=== PATIENT | female | born 1975 | race Caucasian/White ===

== ENCOUNTER 2023-01-16 10:02 | Emergency (ER) | payer BC ==
--- OUTSIDE RECORDS SUMMARY | 2023-01-16 10:12 | XMS REPORT | Continuity of Care Document ---
:1975 Author Organization [facility] t Address [address] [facility] [address] [place] [id number] Care Team Providers Name Role Phone Isaias Meza MD Primary Care Physician MELODY BORJA Attending Clinician Unavailable ISAIAS MEZA Attending Clinician Unavailable Isaias Meza MD Attending Clinician 2, [facility] Attending Clinician Unavailable NICOLASA SOLORIO Attending Clinician Unavailable Nicolasa Thomson Attending Clinician Unknown, Attending Attending Clinician Unavailable Brittani Fallon RN Attending Clinician Unavailable NGUYỄN HINES Attending Clinician Unavailable Nguyễn Hines PA-C Attending Clinician Melody Jacobs Attending Clinician Pob, [facility] Main Attending Clinician Unavailable UNKNOWN, ATTENDING Attending Clinician Unavailable Doctor Unassigned, [place] Attending Clinician Unavailable ROMAN GIL Attending Clinician Unavailable Roman Bradley Attending Clinician Provider, [facility] Attending Clinician Unavailable RAMILA GOMEZ Attending Clinician Unavailable Ramila Elena Attending Clinician Referred, Self Attending Clinician Unavailable BUDDY DUNN Attending Clinician Unavailable Emerson Siddiqui Attending Clinician EMERSON BARRAGAN Attending Clinician Unavailable Geoffrey Schaffer DO Attending Clinician Wil Wallace MD Attending Clinician WIL WALLACE Attending Clinician Unavailable Esperanza Cox Attending Clinician Saskia Phoenix Attending Clinician Unavailable Referred, Self Admitting Clinician Unavailable Physician, No Primary or Family Admitting Clinician Unavaila ble Payers Payer Name Policy Type Policy Number Effective Date Expiration Date S ource [employer] [place] - [id number] 2015 00:00:00 OUT OF STATE Problems Condition Condition Condition Status Onset Resolution Last Treating Co mments Source Name Details Category Date Date Treatment Clinician Date 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9) 30-39.9) 00:00: [place] 00 Medical Branch Need for Need for Disease Active 2020-03 Unive rs hepatitis hepatitis 2-23 ity of C C 00:00: [place] screening screening 00 Medi beth test test Branch Eczema of Eczema of Disease Active 2019-03 Uni vers both hands both hands 2-31 it y of 00:00: [place] [address] Medical Branch Other Other Disease Active Univers fatigue fatigue 9-16 ity of 00:00: [place] [address] Medical Branch Need for Need for Disease Active 2018-03 Unive rs pneumococc pneumococc 1-25 it y of al al 00:00: [place] vaccinatio vaccinatio 00 Me dical n n Branch Class 2 Class 2 Disease Active 2018-03 Univers obesity obesity 1-25 ity of due to due to 00:00: [place] excess excess 00 Medical calories calories Branch without without serious serious comorbidit comorbidit y with y with body mass body mass index index (BMI) of (BMI) of 38.0 to 38.0 to 38.9 in 38.9 in adult adult Cough Cough Disease Active 2018-03 Univers 1-25 ity of 00:00: [place] 00 Medical Branch Need for Need for Disease Active 2018-03 Unive rs pneumococc pneumococc 04-16 it y of al al 00:00: [place] vaccinatio vaccinatio 00 Me dical n n Branch Need for Need for Disease Active 2018-03 Unive rs immunizati immunizati 04-16 it y of on against on against 00:[place] influenza 00 [facility] Encounter Encounter Disease Active 2018-03 Uni vers for for 04-16 ity of contracept contracept 00:[place] corky corky 00 Medical management management Br anch , , unspecifie unspecifie d type d type Class 2 Class 2 Disease Active 2018-03 Univers obesity obesity 25 ity of due to due to 00:00: [place] excess excess 00 Medical calories calories Branch without without serious serious comorbidit comorbidit y with y with body mass body mass index index (BMI) of (BMI) of 38.0 to 38.0 to 38.9 in 38.9 in adult adult Urinary Urinary Disease Active 2018-03 Univers tract tract -25 ity of infection [place] 00:[place] without 00 Medical hematuria, hematuria, Br anch site site unspecifie unspecifie d d ADD ADD Disease Active 2018-03 Univers (attention (attention -22 it y of deficit deficit 00:00: [place] disorder) disorder) 00 [facility] without without Branch hyperactiv hyperactiv ity ity Acute Acute Disease Active 2018-03 Univers non-recurr non-recurr 04-13 it y of ent ent 00:00: [place] maxillary maxillary 00 Medi beth sinusitis sinusitis Bran ch Essential Essential Disease Active Uni vers hypertensi hypertensi 6-18 it y of on on 00:00: [place] 00 Medical Branch Chronic Chronic Disease Active Univers kidney kidney 6-18 ity of disease, disease, 00:00: [place] stage 3a stage 3a 00 Medica l Branch Anxiety Anxiety Disease Active 2018- Univers 618 ity of 00:00: [place] 00 Medical Branch Allergies, Adverse Reactions, Alerts Allergy Allergy Status Severity Reaction(s) Onset Inactive Treating Comm ents Source Name Type Date Date Clinician Nsaids Propensi Active Unknown - 2018-03 Has one Univ ers (Non-Campos ty to See comments 1- kidney, i ty of roidal adverse 00:00: can't [place] Anti-Inf reaction 00 take it Medic al lammator s Branch y Drug) NSAIDS Drug Active Unknown-Cmnt 2018-03 Univ ers (NON-CAMPOS Class 1-22 ity of ROIDAL 00:00: [place] ANTI-INF 00 Medical LAMMATOR Branch Y DRUG) Nsaids Propensi Active Unknown - 2018-03 Has one Univ ers (Non-Campos ty to See comments 1-22 kidney, i ty of roidal adverse 00:00: can't [place] Anti-Inf reaction 00 take it Medic al lammator s Branch y Drug) Social History Social Habit Start Date Stop Date Quantity Comments Source Gender identity Universit y of [facility] Sexual orientation Univer sity of [facility] History [facility] o f Alcohol Frequency [facility] edical Branch History [facility] o f Alcohol Std Drinks [facility] Branch History [facility] o f Alcohol Binge [facility] al [place] Alcohol intake 2022-11-18 2022-11-18 Current drinker Unive rsity of 00:00:00 00:00:00 of alcohol [facility] (finding) Branch Exposure to 2022-08-03 2022-08-13 Not sure University SARS-CoV-2 (event) 00:00:00 15:44:00 [facility] History of Social 2022-02-06 2022-02-06 Univers ity of function 00:00:00 00:00:00 [facility] Tobacco use and 2021-11-06 2021-11-06 Smokeless Universit y of exposure 00:00:00 00:00:00 tobacco non-user [facility] dical Branch Alcohol Comment 2017-03-30 2017-03-30 socially Universit y of 00:00:00 00:00:00 [facility] Sex [birth year] Universit y of 00:00:00 00:00:00 [facility] Smoking Status Start Date Stop Date Source Never smoked tobacco [facility] Medications Ordered Filled Start Stop Current Ordering Indication Dosage Frequency Signature Comments Components Source Medication Medication Date Date Medication? Clinician (SIG) Name Name nessazepril- 2022-0 Yes [id number] 1{tbl} Take 1 Univers hydrochlort 8-29 tablet by ity of hiazide 00:00: mouth in [place] 5-6.25 mg 00 the Medical per tablet morning. Bran h lisdexamfet 2022-0 Yes [id number] 30mg Take 1 Univers amine 8-29 capsule by ity of (VYVANSE) 00:00: mouth [place] 30 mg 00 every Medical capsule morning. Nura benazepril- 2022-0 Yes [id number] 1{tbl} Take 1 Univers hydrochlort 8-29 tablet by ity of hiazide 00:00: mouth in [place] 5-6.25 mg 00 the Medical per tablet morning. Bran h lisdexamfet 2022-0 Yes [id number] 30mg Take 1 Univers amine 8-29 capsule by ity of (VYVANSE) 00:00: mouth [place] 30 mg 00 every Medical capsule morning. Nura benazepril- 2022-0 Yes [id number] 1{tbl} Take 1 Univers hydrochlort 8-29 tablet by ity of hiazide 00:00: mouth in [place] 5-6.25 mg 00 the Medical per tablet morning. Bran h lisdexamfet 2022-0 Yes [id number] 30mg Take 1 Univers amine 8-29 capsule by ity of (VYVANSE) 00:00: mouth [place] 30 mg 00 every Medical capsule morning. Nura benazepril- 2022-0 Yes [id number] 1{tbl} Take 1 Univers hydrochlort 8-29 tablet by ity of hiazide 00:00: mouth in [place] 5-6.25 mg 00 the Medical per tablet morning. Bran h lisdexamfet 3-0 Yes [id number] 30mg Take 1 Univers amine 8-29 capsule by ity of (VYVANSE) 00:00: mouth [place] 30 mg 00 every Medical capsule morning. Nura benazepril- 2022-0 Yes [id number] 1{tbl} Take 1 Univers hydrochlort 8-29 tablet by ity of hiazide 00:00: mouth in [place] 5-6.25 mg 00 the Medical per tablet morning. Branc h lisdexamfet 2022-0 Yes [id number] 30mg Take 1 Univers amine 8-29 capsule by ity of (VYVANSE) 00:00: mouth [place] 30 mg 00 every Medical capsule morning. Branch benazepril- 2022-0 Yes [id number] 1{tbl} Take 1 Univers hydrochlort 8-29 tablet by ity of hiazide 00:00: mouth in [place] 5-6.25 mg 00 the Medical per tablet morning. Branc h lisdexamfet 2022-0 Yes [id number] 30mg Take 1 Univers amine 8-29 capsule by ity of (VYVANSE) 00:00: mouth [place] 30 mg 00 every Medical capsule morning. Branch benazepril- 2022-0 Yes [id number] 1{tbl} Take 1 Univers hydrochlort 8-29 tablet by ity of hiazide 00:00: mouth in [place] 5-6.25 mg 00 the Medical per tablet morning. Bran h lisdexamfet 2022-0 Yes [id number] 30mg Take 1 Univers amine 8-29 capsule by ity of (VYVANSE) 00:00: mouth [place] 30 mg 00 every Medical capsule morning. Branch benazepril- 2022-0 Yes [id number] 1{tbl} Take 1 Univers hydrochlort 8-29 tablet by ity of hiazide 00:00: mouth in [place] 5-6.25 mg 00 the Medical per tablet morning. Bran h lisdexamfet 2022-0 Yes [id number] 30mg Take 1 Univers amine 8-29 capsule by ity of (VYVANSE) 00:00: mouth [place] 30 mg 00 every Medical capsule morning. Branch benazepril- 2022-0 Yes [id number] 1{tbl} Take 1 Univers hydrochlort 8-29 tablet by ity of hiazide 00:00: mouth in [place] 5-6.25 mg 00 the Medical per tablet morning. Branc h lisdexamfet 2022-0 Yes [id number] 30mg Take 1 Univers amine 8-29 capsule by ity of (VYVANSE) 00:00: mouth [place] 30 mg 00 every Medical capsule morning. Nura [place] 1.7 2022-0 Yes [id number] INJECT 1.7 Univers mg/0.75 mL 8-24 MG UNDER ity o f PnIj SC 00:00: THE SKIN [place] injection 00 WEEKLY. Medical Branch WEGOVY 1.7 2022-0 Yes [id number] INJECT 1.7 Univers mg/0.75 mL 8-24 MG UNDER ity o f PnIj SC 00:00: THE SKIN [place] injection 00 WEEKLY. Medical Branch WEGOVY 1.7 2022-0 Yes [id number] INJECT 1.7 Univers mg/0.75 mL 8-24 MG UNDER ity o f PnIj SC 00:00: THE SKIN [place] injection 00 WEEKLY. Medical Branch WEGOVY 1.7 2022-0 Yes [id number] INJECT 1.7 Univers mg/0.75 mL 8-24 MG UNDER ity o f PnIj SC 00:00: THE SKIN [place] injection 00 WEEKLY. Medical Branch WEGOVY 1.7 2022-0 Yes [id number] INJECT 1.7 Univers mg/0.75 mL 8-24 MG UNDER ity o f PnIj SC 00:00: THE SKIN [place] injection 00 WEEKLY. Medical Branch WEGOVY 1.7 2022-0 Yes [id number] INJECT 1.7 Univers mg/0.75 mL 8-24 MG UNDER ity o f PnIj SC 00:00: THE SKIN [place] injection 00 WEEKLY. Medical Branch WEGOVY 1.7 2022-0 Yes [id number] INJECT 1.7 Univers mg/0.75 mL 8-24 MG UNDER ity o f PnIj SC 00:00: THE SKIN [place] injection 00 WEEKLY. Medical Branch WEGOVY 1.7 2022-0 Yes [id number] INJECT 1.7 Univers mg/0.75 mL 8-24 MG UNDER ity o f PnIj SC 00:00: THE SKIN [place] injection 00 WEEKLY. Medical Branch WEGOVY 1.7 2022-0 Yes [id number] INJECT 1.7 Univers mg/0.75 mL 8-24 MG UNDER ity o f PnIj SC 00:00: THE SKIN [place] injection 00 WEEKLY. Medical Branch WEGOVY 1.7 2022-0 Yes [id number] INJECT 1.7 Univers mg/0.75 mL 8-24 MG UNDER ity o f PnIj SC 00:00: THE SKIN [place] injection 00 WEEKLY. Medical Branch dexamethaso 2023-0 3- No [id number] 10mg U nivers ne 11-11 ity of (DECADRON) 22:15: 22:20 [place] injection 00 :00 Medical 10 mg Branch dexamethaso 2023-0 2023- No [id number] 10mg 10 mg, Univers ne 11-11 Intramuscu ity of (DECADRON) 22:15: 22:20 lar, ONCE, [place] injection 00 :00 1 dose, On Medi beth 10 mg Tue Branch 11/11/22 at 1730, Routine methylPREDN 2023-0 Yes [id number] follow Univers ISolone 11-11 package ity of (MEDROL, 00:00: directions Son as GUILLERMO,) 4 mg 00 Medical tablets Branch methylPREDN 2023-0 Yes [id number] follow Univers ISolone 11-11 package ity of (MEDROL, 00:00: directions [place] as GUILLERMO,) 4 mg 00 Medical tablets Branch methylPREDN 2023-0 Yes [id number] follow Univers ISolone 11-11 package ity of (MEDROL, 00:00: directions [place] as GUILLERMO,) 4 mg 00 Medical tablets Branch methylPREDN 2023-0 Yes [id number] follow Univers ISolone 11-11 package ity of (MEDROL, 00:00: directions [place] as GUILLERMO,) 4 mg 00 Medical tablets Branch methylPREDN 2023-0 Yes [id number] follow Univers ISolone 8- package ity of (MEDROL, 00:00: directions [place] as GUILLERMO,) 4 mg 00 Medical tablets Branch methylPREDN 2023-0 Yes [id number] follow Univers ISolone 822 package ity of (MEDROL, 00:00: directions [place] as GUILLERMO,) 4 mg 00 Medical tablets Branch methylPREDN 2023-0 Yes [id number] follow Univers ISolone 8-22 package ity of (MEDROL, 00:00: directions [place] as GUILLERMO,) 4 mg 00 Medical tablets Branch methylPREDN 2023-0 Yes [id number] follow Univers ISolone 8-22 package ity of (MEDROL, 00:00: directions [place] as GUILLERMO,) 4 mg 00 Medical tablets Branch methylPREDN 2023-0 Yes [id number] follow Univers ISolone 8-22 package ity of (MEDROL, 00:00: directions [place] as GUILLERMO,) 4 mg 00 Medical tablets Branch methylPREDN 3-0 Yes [id number] follow Univers ISolone 8-22 package ity of (MEDROL, 00:00: directions [place] as GUILLERMO,) 4 mg 00 Medical tablets Branch methylPREDN 3-0 Yes [id number] follow Univers ISolone 8-22 package ity of (MEDROL, 00:00: directions [place] as GUILLERMO,) 4 mg 00 Medical tablets Branch methylPREDN 3-0 Yes [id number] follow Univers ISolone 8-22 package ity of (MEDROL, 00:00: directions [place] as GUILLERMO,) 4 mg 00 Medical tablets Branch bromphenira 2022-0 Yes [id number] 5mL Take 5 mL Univers mine-pseudo 8-19 by mouth 3 it y of ephedrine-D 00:00: (three) [place] as M (BROMFED 00 times Medical DM) 2-30-10 daily as Bran ch mg/5 mL needed for syrup Cold symptoms. cetirizine 2022-0 Yes [id number] 10mg Take 1 Un chastity 10 mg 8-19 tablet by ity of tablet 00:00: mouth in [place] the Medical morning. Branch fluticasone 2022-0 Yes [id number] 2{spray Use 2 Univers propionate 8-19 } Sprays in ity of 50 00:00: each [place] mcg/actuati 00 nostril in Me dical on nasal the Branch spray morning. bromphenira 2022-0 Yes [id number] 5mL Take 5 mL Univers mine-pseudo 8-19 by mouth 3 it y of ephedrine-D 00:00: (three) [place] M (BROMFED 00 times Medical DM) 2-30-10 daily as Bran ch mg/5 mL needed for syrup Cold symptoms. cetirizine 2022-0 Yes [id number] 10mg Take 1 Un chastity 10 mg 8-19 tablet by ity of tablet 00:00: mouth in [place] 00 the Medical morning. Branch fluticasone 3-0 Yes [id number] 2{spray Use 2 Univers propionate 8-19 } Sprays in ity of 50 00:00: each [place] mcg/actuati 00 nostril in Me dical on nasal the Branch spray morning. bromphenira 2023-0 Yes [id number] 5mL Take 5 mL Univers mine-pseudo 8-19 by mouth 3 it y of ephedrine-D 00:00: (three) [place] M (BROMFED 00 times Medical DM) 2-30-10 daily as Bran ch mg/5 mL needed for syrup Cold symptoms. cetirizine 3-0 Yes [id number] 10mg Take 1 Un chastity 10 mg 8-19 tablet by ity of tablet 00:00: mouth in [place] 00 the Medical morning. Branch fluticasone 3-0 Yes [id number] 2{spray Use 2 Univers propionate 8-19 } Sprays in ity of 50 00:00: each [place] mcg/actuati 00 nostril in Me dical on nasal the Branch spray morning. bromphenira 3-0 Yes [id number] 5mL Take 5 mL Univers mine-pseudo 8-19 by mouth 3 it y of ephedrine-D 00:00: (three) [place] M (BROMFED 00 times Medical DM) 2-30-10 daily as Bran ch mg/5 mL needed for syrup Cold symptoms. cetirizine 2022-0 Yes [id number] 10mg Take 1 Un chastity 10 mg 8-19 tablet by ity of tablet 00:00: mouth in [place] 00 the Medical morning. Branch fluticasone 3-0 Yes [id number] 2{spray Use 2 Univers propionate 8-19 } Sprays in ity of 50 00:00: each [place] mcg/actuati 00 nostril in Me dical on nasal the Branch spray morning. bromphenira 3-0 Yes [id number] 5mL Take 5 mL Univers mine-pseudo 8-19 by mouth 3 it y of ephedrine-D 00:00: (three) [place] M (BROMFED 00 times Medical DM) 2-30-10 daily as Bran ch mg/5 mL needed for syrup Cold symptoms. cetirizine 3-0 Yes [id number] 10mg Take 1 Un chastity 10 mg 8-19 tablet by ity of tablet 00:00: mouth in [place] 00 the Medical morning. Branch fluticasone 3-0 Yes [id number] 2{spray Use 2 Univers propionate 8-19 } Sprays in ity of 50 00:00: each [place] mcg/actuati 00 nostril in Me dical on nasal the Branch spray morning. fluticasone 2022-0 Yes [id number] 2{spray Use 2 Univers propionate 8-19 } Sprays in ity of 50 00:00: each [place] mcg/actuati 00 nostril in Me dical on nasal the Branch spray morning. fluticasone 2022-0 Yes [id number] 2{spray Use 2 Univers propionate 8-19 } Sprays in ity of 50 00:00: each [place] mcg/actuati 00 nostril in Me dical on nasal the Branch spray morning. fluticasone 2022-0 Yes [id number] 2{spray Use 2 Univers propionate 8-19 } Sprays in ity of 50 00:00: each [place] mcg/actuati 00 nostril in Me dical on nasal the Branch spray morning. fluticasone 2022-0 Yes [id number] 2{spray Use 2 Univers propionate 8-19 } Sprays in ity of 50 00:00: each [place] mcg/actuati 00 nostril in Me dical on nasal the Branch spray morning. fluticasone 2022-0 Yes [id number] 2{spray Use 2 Univers propionate 8-19 } Sprays in ity of 50 00:00: each [place] mcg/actuati 00 nostril in Me dical on nasal the Branch spray morning. fluticasone 2022-0 Yes [id number] 2{spray Use 2 Univers propionate 8-19 } Sprays in ity of 50 00:00: each [place] mcg/actuati 00 nostril in Me dical on nasal the Branch spray morning. fluticasone 2022-0 Yes [id number] 2{spray Use 2 Univers propionate 8-19 } Sprays in ity of 50 00:00: each [place] mcg/actuati 00 nostril in Me dical on nasal the Branch spray morning. fluticasone 2022-0 Yes [id number] 2{spray Use 2 Univers propionate 8-19 } Sprays in ity of 50 00:00: each [place] mcg/actuati 00 nostril in Me dical on nasal the Branch spray morning. fluticasone 2022-0 Yes [id number] 2{spray Use 2 Univers propionate 8-19 } Sprays in ity of 50 00:00: each [place] mcg/actuati 00 nostril in Me dical on nasal the Branch spray morning. bromphenira 2022- No [id number] 5mL Take 5 mL Univers mine-pseudo 11-08 by mouth 3 i ty of ephedrine-D 00:00: 00:[place] (three[place] M (BROMFED 00 :00 times Medical DM) 2-30-10 daily as Bran ch mg/5 mL needed for syrup Cold symptoms. cetirizine 2022- No [id number] 10mg Take 1 U nivers 10 mg 11-08 tablet by ity of tablet 00:00: 00:00 mouth in [place] 00 :00 the Medical morning. Branch bromphenira 2022- No [id number] 5mL Take 5 mL Univers mine-pseudo 11-08 by mouth 3 i ty of ephedrine-D 00:00: 00:00 (three[place] M (BROMFED 00 :00 times Medical DM) 2-30-10 daily as Bran ch mg/5 mL needed for syrup Cold symptoms. cetirizine 2022- No [id number] 10mg Take 1 U nivers 10 mg 11-08 tablet by ity of tablet 00:00: 00:00 mouth in [place] 00 :00 the Medical morning. Branch WEGOVY 1.7 Yes [id number] INJECT 1.7 Univers mg/0.75 mL 7-23 MG UNDER ity o f PnIj SC 00:00: THE SKIN [place] injection 00 WEEKLY. Medical Branch WEGOVY 1.7 Yes [id number] INJECT 1.7 Univers mg/0.75 mL 7-23 MG UNDER ity o f PnIj SC 00:00: THE SKIN [place] injection 00 WEEKLY. Medical Branch WEGOVY 1.7 Yes [id number] INJECT 1.7 Univers mg/0.75 mL 7-23 MG UNDER ity o f PnIj SC 00:00: THE SKIN [place] injection 00 WEEKLY. Medical Branch WEGOVY 1.7 Yes [id number] INJECT 1.7 Univers mg/0.75 mL 7-23 MG UNDER ity o f PnIj SC 00:00: THE SKIN [place] injection 00 WEEKLY. Medical Branch WEGOVY 1.7 Yes [id number] INJECT 1.7 Univers mg/0.75 mL 7-23 MG UNDER ity o f PnIj SC 00:00: THE SKIN [place] injection 00 WEEKLY. Medical Branch PETE 1.7 2022-2022- No [id number] INJECT 1.7 Univers mg/0.75 mL 7-23 08-24 MG UNDER ity of PnIj SC 00:00: 00:00 THE SKIN [place] injection 00 :00 WEEKLY. Medical Branch lisdexamfet 2022-0 Yes [id number] 30mg Take 1 Univers amine 7-08 capsule by ity of (VYVANSE) 00:00: mouth [place] 30 mg 00 every Medical capsule morning. Branch lisdexamfet 2022-0 Yes [id number] 30mg Take 1 Univers amine 7-08 capsule by ity of (VYVANSE) 00:00: mouth [place] 30 mg 00 every Medical capsule morning. Branch lisdexamfet 2022-0 Yes [id number] 30mg Take 1 Univers amine 7-08 capsule by ity of (VYVANSE) 00:00: mouth [place] 30 mg 00 every Medical capsule morning. Branch lisdexamfet 2022-0 Yes [id number] 30mg Take 1 Univers amine 7-08 capsule by ity of (VYVANSE) 00:00: mouth [place] 30 mg 00 every Medical capsule morning. Branch lisdexamfet 2022-0 Yes [id number] 30mg Take 1 Univers amine 7-08 capsule by ity of (VYVANSE) 00:00: mouth [place] 30 mg 00 every Medical capsule morning. Branch lisdexamfet 2022-0 Yes [id number] 30mg Take 1 Univers amine 7-08 capsule by ity of (VYVANSE) 00:00: mouth [place] 30 mg 00 every Medical capsule morning. Branch lisdexamfet 2022-0 Yes [id number] 30mg Take 1 Univers amine 7-08 capsule by ity of (VYVANSE) 00:00: mouth [place] 30 mg 00 every Medical capsule morning. Branch lisdexamfet 2022-0 2022- No [id number] 30mg Take 1 Univers amine 7-08 08-29 capsule by ity of (VYVANSE) 00:00: 00:00 mouth [place] 30 mg 00 :00 every Medical capsule morning. Branch lisdexamfet 2022-0 2022- No [id number] 30mg Take 1 Univers amine 7-08 08-29 capsule by ity of (VYVANSE) 00:00: 00:00 mouth [place] 30 mg 00 :00 every Medical capsule morning. Branch WEGOVY 1.7 2022- Yes [id number] INJECT 1.7 Univers mg/0.75 mL 6-20 MG UNDER ity o f PnIj SC 00:00: THE SKIN [place] injection 00 WEEKLY. Medical START Branch AFTER FINISHING 0.25MG, 0.5MG, AND 1MG DOSES. WEGOVY 1.7 2022- Yes [id number] INJECT 1.7 Univers mg/0.75 mL 6-20 MG UNDER ity o f PnIj SC 00:00: THE SKIN [place] injection 00 WEEKLY. Medical START Branch AFTER FINISHING 0.25MG, 0.5MG, AND 1MG DOSES. WEGOVY 1.7 2022-2022- No [id number] INJECT 1.7 Univers mg/0.75 mL 6-20 07-23 MG UNDER ity of PnIj SC 00:00: 00:00 THE SKIN [place] injection 00 :00 WEEKLY. Medical START Branch AFTER FINISHING 0.25MG, 0.5MG, AND 1MG DOSES. semaglutide 2022-0 Yes [id number] Start: Univers , weight 5-24 0.25mg SC ity of loss, 00:00: qWeek x 4 [place] (WEGOVY) 1 00 Weeks; Medical mg/0.5 mL then 0.5mg Bran ch PnIj SC SC qWeek x injection 4 Weeks; then 1mg SC qWeek x 4 Weeks; then 1.7mg SC qWeek x 4 Weeks; then 2.4mg qWeek. semaglutide 2022-0 Yes [id number] 1.7mg inject 1.7 Univers , weight 5-24 mg under ity of loss, 00:00: the skin [place] (WEGOVY) 00 weekly. Medical 1.7 mg/0.75 for 4 Branch mL PnIj SC weeks injection lisdexamfet 2022-0 Yes [id number] 30mg Take 1 Univers amine 5-24 capsule by ity of (VYVANSE) 00:00: mouth [place] 30 mg 00 every Medical capsule morning. Branch lisinopriL 3-0 Yes [id number] 5mg Take 1 U nivers 5 mg tablet 5-24 tablet by ity of 00:00: mouth in [place] 00 the Medical morning. Branch hydroCHLORO 3-0 Yes [id number] 12.5mg Take 1 Univers thiazide 5-24 capsule by ity o f 12.5 mg 00:00: mouth in [place] capsule 00 the Medical morning. Branch semaglutide 3-0 Yes [id number] 2.4mg inject 2.4 Univers , weight 5-24 mg under ity of loss, 00:00: the [facility] ([facility] 00 weekly. Medical 2.4 mg/0.75 Start: Branch mL PnIj SC 0.25mg SC injection qWeek x 4 Weeks; then 0.5mg SC qWeek x 4 Weeks; then 1mg SC qWeek x 4 Weeks; thes1.7mg SC qWeek x 4 Weeks; then 2.4mg qWeek. semaglutide 3-0 Yes [id number] Start: Univers , weight 5-24 0.25mg SC ity of loss, 00:00: qWeek x 4 [place] (WEGOVY) 1 00 Weeks; Medical mg/0.5 mL then 0.5mg Bran ch PnIj SC SC qWeek x injection 4 Weeks; then 1mg SC qWeek x 4 Weeks; then 1.7mg SC qWeek x 4 Weeks; then 2.4mg qWeek. semaglutide 3-0 Yes [id number] 1.7mg inject 1.7 Univers , weight 5-24 mg under ity of loss, 00:00: the skin [place] ([facility]) 00 weekly. Medical 1.7 mg/0.75 for 4 Branch mL PnIj SC weeks injection lisdexamfet 3-0 Yes [id number] 30mg Take 1 [facility] amine 5-24 capsule by ity of (VYVANSE) 00:00: mouth [place] 30 mg 00 every Medical capsule morning. Branch lisinopriL 3-0 Yes [id number] 5mg Take 1 U nivers 5 mg tablet 5-24 tablet by ity of 00:00: mouth in [place] 00 the Medical morning. Branch hydroCHLORO 3-0 Yes [id number] 12.5mg Take 1 [facility] thiazide 5-24 capsule by ity o f 12.5 mg 00:00: mouth in [place] capsule 00 the Medical morning. [facility] semaglutide 2023-0 Yes [id number] 2.4mg inject 2.4 [facility] , weight 5-24 mg under ity of loss, 00:00: the skin [place] ([facility]) 00 weekly. Medical 2.4 mg/0.75 Start: Branch mL PnIj SC 0.25mg SC injection qWeek x 4 Weeks; then 0.5mg SC qWeek x 4 Weeks; then 1mg SC qWeek x 4 Weeks; thes1.7mg SC qWeek x 4 Weeks; then 2.4mg qWeek. semaglutide 3-0 Yes [id number] Start: Univers , weight 5-24 0.25mg SC ity of loss, 00:00: qWeek x 4 [place] ([facility]) 1 00 Weeks; Medical mg/0.5 mL then 0.5mg Bran ch PnIj SC SC qWeek x injection 4 Weeks; then 1mg SC qWeek x 4 Weeks; then 1.7mg SC qWeek x 4 Weeks; then 2.4mg qWeek. lisdexamfet 3-0 Yes [id number] 30mg Take 1 [facility] amine 5-24 capsule by ity of (VYVANSE) 00:00: mouth [place] 30 mg 00 every Medical capsule morning. [facility] lisinopriL 3-0 Yes [id number] 5mg Take 1 U nivers 5 mg tablet 5-24 tablet by ity of 00:00: mouth in [place] 00 the Medical morning. [facility] hydroCHLORO 3-0 Yes [id number] 12.5mg Take 1 [facility] thiazide 5-24 capsule by ity o f 12.5 mg 00:00: mouth in [place] capsule 00 the Medical morning. [facility] semaglutide 2023-0 Yes [id number] 2.4mg inject 2.4 [facility] , weight 5-24 mg under ity of loss, 00:00: the skin [place] ([facility]) 00 weekly. Medical 2.4 mg/0.75 Start: Branch mL PnIj SC 0.25mg SC injection qWeek x 4 Weeks; then 0.5mg SC qWeek x 4 Weeks; then 1mg SC qWeek x 4 Weeks; thes1.7mg SC qWeek x 4 Weeks; then 2.4mg qWeek. semaglutide 2023-0 Yes [id number] Start: Univers , weight 5-24 0.25mg SC ity of loss, 00:00: qWeek x 4 [facility]) 00 Weeks; Medical mg/0.5 mL then 0.5mg Bran ch PnIj SC SC qWeek x injection 4 Weeks; then 1mg SC qWeek x 4 Weeks; then 1.7mg SC qWeek x 4 Weeks; then 2.4mg qWeek. lisinopriL 2023-0 Yes [id number] 5mg Take 1 U nivers 5 mg tablet 5-24 tablet by ity of 00:00: mouth in [place] 00 the Medical morning. [facility] hydroCHLORO 3-0 Yes [id number] 12.5mg Take 1 [facility] thiazide 5-24 capsule by ity o f 12.5 mg 00:00: mouth in [place] capsule 00 the Medical morning. [facility] semaglutide 3-0 Yes [id number] 2.4mg inject 2.4 [facility] , weight 5-24 mg under ity of loss, 00:00: the skin [place] ([facility]) 00 weekly. Medical 2.4 mg/0.75 Start: [facility] mL PnIj SC 0.25mg SC injection qWeek x 4 Weeks; then 0.5mg SC qWeek x 4 Weeks; then 1mg SC qWeek x 4 Weeks; thes1.7mg SC qWeek x 4 Weeks; then 2.4mg qWeek. semaglutide 2023-0 Yes [id number] Start: Univers , weight 5-24 0.25mg SC ity of loss, 00:00: qWeek x 4 [facility]) 00 Weeks; Medical mg/0.5 mL then 0.5mg Bran ch PnIj SC SC qWeek x injection 4 Weeks; then 1mg SC qWeek x 4 Weeks; then 1.7mg SC qWeek x 4 Weeks; then 2.4mg qWeek. lisinopriL 2023-0 Yes [id number] 5mg Take 1 U nivers 5 mg tablet 5-24 tablet by ity of 00:00: mouth in [place] 00 the Medical morning. [facility] hydroCHLORO 2023-0 Yes [id number] 12.5mg Take 1 [facility] thiazide 5-24 capsule by ity o f 12.5 mg 00:00: mouth in [place] capsule 00 the Medical morning. Branch semaglutide 3-0 Yes [id number] 2.4mg inject 2.4 [facility] , weight 5-24 mg under ity of loss, 00:00: the skin [place] ([facility]) 00 weekly. Medical 2.4 mg/0.75 Start: Branch mL PnIj SC 0.25mg SC injection qWeek x 4 Weeks; then 0.5mg SC qWeek x 4 Weeks; then 1mg SC qWeek x 4 Weeks; thes1.7mg SC qWeek x 4 Weeks; then 2.4mg qWeek. semaglutide 3-0 Yes [id number] Start: Univers , weight 5-24 0.25mg SC ity of loss, 00:00: qWeek x 4 [facility]) 1 00 Weeks; Medical mg/0.5 mL then 0.5mg Bran ch PnIj SC SC qWeek x injection 4 Weeks; then 1mg SC qWeek x 4 Weeks; then 1.7mg SC qWeek x 4 Weeks; then 2.4mg qWeek. lisinopriL 3-0 Yes [id number] 5mg Take 1 U nivers 5 mg tablet 5-24 tablet by ity of 00:00: mouth in [place] 00 the Medical morning. [facility] hydroCHLORO 3-0 Yes [id number] 12.5mg Take 1 [facility] thiazide 5-24 capsule by ity o f 12.5 mg 00:00: mouth in [place] capsule 00 the Medical morning. Branch semaglutide 3-0 Yes [id number] 2.4mg inject 2.4 [facility] , weight 5-24 mg under ity of loss, 00:00: the skin [place] ([facility]) 00 weekly. Medical 2.4 mg/0.75 Start: Branch mL PnIj SC 0.25mg SC injection qWeek x 4 Weeks; then 0.5mg SC qWeek x 4 Weeks; then 1mg SC qWeek x 4 Weeks; thes1.7mg SC qWeek x 4 Weeks; then 2.4mg qWeek. semaglutide 2023-0 Yes [id number] Start: Univers , weight 5-24 0.25mg SC ity of loss, 00:00: qWeek x 4 [facility]) 1 00 Weeks; Medical mg/0.5 mL then 0.5mg Bran ch PnIj SC SC qWeek x injection 4 Weeks; then 1mg SC qWeek x 4 Weeks; then 1.7mg SC qWeek x 4 Weeks; then 2.4mg qWeek. lisinopriL 2023-0 Yes [id number] 5mg Take 1 U nivers 5 mg tablet 5-24 tablet by ity of 00:00: mouth in [place] 00 the Medical morning. Branch hydroCHLORO 2023-0 Yes [id number] 12.5mg Take 1 [facility] thiazide 5-24 capsule by ity o f 12.5 mg 00:00: mouth in [place] capsule 00 the Medical morning. Branch semaglutide 2023-0 Yes [id number] 2.4mg inject 2.4 [facility] , weight 5-24 mg under ity of loss, 00:00: the skin [place] ([facility]) 00 weekly. Medical 2.4 mg/0.75 Start: Branch mL PnIj SC 0.25mg SC injection qWeek x 4 Weeks; then 0.5mg SC qWeek x 4 Weeks; then 1mg SC qWeek x 4 Weeks; thes1.7mg SC qWeek x 4 Weeks; then 2.4mg qWeek. semaglutide 2023-0 Yes [id number] Start: Univers , weight 5-24 0.25mg SC ity of loss, 00:00: qWeek x 4 [facility]) 1 00 Weeks; Medical mg/0.5 mL then 0.5mg Bran ch PnIj SC SC qWeek x injection 4 Weeks; then 1mg SC qWeek x 4 Weeks; then 1.7mg SC qWeek x 4 Weeks; then 2.4mg qWeek. lisinopriL 2023-0 Yes [id number] 5mg Take 1 U nivers 5 mg tablet 5-24 tablet by ity of 00:00: mouth in [place] 00 the Medical morning. Branch hydroCHLORO 2023-0 Yes [id number] 12.5mg Take 1 [facility] thiazide 5-24 capsule by ity o f 12.5 mg 00:00: mouth in [place] capsule 00 the Medical morning. [facility] semaglutide 2023-0 Yes [id number] 2.4mg inject 2.4 [facility] , weight 5-24 mg under ity of loss, 00:00: the [facility]) 00 weekly. Medical 2.4 mg/0.75 Start: Branch mL PnIj SC 0.25mg SC injection qWeek x 4 Weeks; then 0.5mg SC qWeek x 4 Weeks; then 1mg SC qWeek x 4 Weeks; thes1.7mg SC qWeek x 4 Weeks; then 2.4mg qWeek. semaglutide 2023-0 Yes [id number] Start: Univers , weight 5-24 0.25mg SC ity of loss, 00:00: qWeek x 4 [facility] 00 Weeks; Medical mg/0.5 mL then 0.5mg Bran ch PnIj SC SC qWeek x injection 4 Weeks; then 1mg SC qWeek x 4 Weeks; then 1.7mg SC qWeek x 4 Weeks; then 2.4mg qWeek. lisinopriL 3-0 Yes [id number] 5mg Take 1 U nivers 5 mg tablet 5-24 tablet by ity of 00:00: mouth in [place] 00 the Medical morning. [facility] hydroCHLORO 3-0 Yes [id number] 12.5mg Take 1 [facility] thiazide 5-24 capsule by ity o f 12.5 mg 00:00: mouth in [place] capsule 00 the Medical morning. [facility] semaglutide 3-0 Yes [id number] 2.4mg inject 2.4 [facility] , weight 5-24 mg under ity of loss, 00:00: the skin [place] ([facility]) 00 weekly. Medical 2.4 mg/0.75 Start: Branch mL PnIj SC 0.25mg SC injection qWeek x 4 Weeks; then 0.5mg SC qWeek x 4 Weeks; then 1mg SC qWeek x 4 Weeks; thes1.7mg SC qWeek x 4 Weeks; then 2.4mg qWeek. semaglutide 2023-0 Yes [id number] Start: Univers , weight 5-24 0.25mg SC ity of loss, 00:00: qWeek x 4 [place] ([facility]) 1 00 Weeks; Medical mg/0.5 mL then 0.5mg Bran ch PnIj SC SC qWeek x injection 4 Weeks; then 1mg SC qWeek x 4 Weeks; then 1.7mg SC qWeek x 4 Weeks; then 2.4mg qWeek. lisinopriL 3-0 Yes [id number] 5mg Take 1 U nivers 5 mg tablet 5-24 tablet by ity of 00:00: mouth in [place] 00 the Medical morning. Branch hydroCHLORO 3-0 Yes [id number] 12.5mg Take 1 [facility] thiazide 5-24 capsule by ity o f 12.5 mg 00:00: mouth in [place] capsule 00 the Medical morning. Branch semaglutide 3-0 Yes [id number] 2.4mg inject 2.4 [facility] , weight 5-24 mg under ity of loss, 00:00: the [facility]) 00 weekly. Medical 2.4 mg/0.75 Start: Branch mL PnIj SC 0.25mg SC injection qWeek x 4 Weeks; then 0.5mg SC qWeek x 4 Weeks; then 1mg SC qWeek x 4 Weeks; thes1.7mg SC qWeek x 4 Weeks; then 2.4mg qWeek. semaglutide 3-0 Yes [id number] 2.4mg inject 2.4 [facility] , weight 5-24 mg under ity of loss, 00:00: the [facility]) weekly. Medical 2.4 mg/0.75 Start: Branch mL PnIj SC 0.25mg SC injection qWeek x 4 Weeks; then 0.5mg SC qWeek x 4 Weeks; then 1mg SC qWeek x 4 Weeks; thes1.7mg SC qWeek x 4 Weeks; then 2.4mg qWeek. semaglutide 2023-0 Yes [id number] 2.4mg inject 2.4 Univers , weight 5-24 mg under ity of loss, 00:00: the [facility] ([facility]) weekly. Medical 2.4 mg/0.75 Start: Branch mL PnIj SC 0.25mg SC injection qWeek x 4 Weeks; then 0.5mg SC qWeek x 4 Weeks; then 1mg SC qWeek x 4 Weeks; thes1.7mg SC qWeek x 4 Weeks; then 2.4mg qWeek. semaglutide 2023-0 Yes [id number] 2.4mg inject 2.4 Univers , weight 5-24 mg under ity of loss, 00:00: the [facility]) 00 weekly. Medical 2.4 mg/0.75 Start: Branch mL PnIj SC 0.25mg SC injection qWeek x 4 Weeks; then 0.5mg SC qWeek x 4 Weeks; then 1mg SC qWeek x 4 Weeks; thes1.7mg SC qWeek x 4 Weeks; then 2.4mg qWeek. semaglutide 2023-0 Yes [id number] 2.4mg inject 2.4 Univers , weight 5-24 mg under ity of loss, 00:00: the [facility] ([facility] weekly. Medical 2.4 mg/0.75 Start: Branch mL PnIj SC 0.25mg SC injection qWeek x 4 Weeks; then 0.5mg SC qWeek x 4 Weeks; then 1mg SC qWeek x 4 Weeks; thes1.7mg SC qWeek x 4 Weeks; then 2.4mg qWeek. semaglutide 2023-0 Yes [id number] 2.4mg inject 2.4 Univers , weight 5-24 mg under ity of loss, 00:00: the [facility] ([facility]) weekly. Medical 2.4 mg/0.75 Start: Branch mL PnIj SC 0.25mg SC injection qWeek x 4 Weeks; then 0.5mg SC qWeek x 4 Weeks; then 1mg SC qWeek x 4 Weeks; thes1.7mg SC qWeek x 4 Weeks; then 2.4mg qWeek. semaglutide 2023-0 Yes [id number] 2.4mg inject 2.4 Univers , weight 5-24 mg under ity of loss, 00:00: the [facility] ([facility]) weekly. Medical 2.4 mg/0.75 Start: Branch mL PnIj SC 0.25mg SC injection qWeek x 4 Weeks; then 0.5mg SC qWeek x 4 Weeks; then 1mg SC qWeek x 4 Weeks; thes1.7mg SC qWeek x 4 Weeks; then 2.4mg qWeek. semaglutide 3-0 Yes [id number] 2.4mg inject 2.4 Univers , weight 5-24 mg under ity of loss, 00:00: the skin [facility]) 00 weekly. Medical 2.4 mg/0.75 Start: Branch mL PnIj SC 0.25mg SC injection qWeek x 4 Weeks; then 0.5mg SC qWeek x 4 Weeks; then 1mg SC qWeek x 4 Weeks; thes1.7mg SC qWeek x 4 Weeks; then 2.4mg qWeek. semaglutide 2022-0 Yes [id number] 2.4mg inject 2.4 Univers , weight 5-24 mg under ity of loss, 00:00: the skin [facility]) 00 weekly. Medical 2.4 mg/0.75 Start: Branch mL PnIj SC 0.25mg SC injection qWeek x 4 Weeks; then 0.5mg SC qWeek x 4 Weeks; then 1mg SC qWeek x 4 Weeks; thes1.7mg SC qWeek x 4 Weeks; then 2.4mg qWeek. semaglutide 2022-0 Yes [id number] 2.4mg inject 2.4 Univers , weight 5-24 mg under ity of loss, 00:00: the skin [place] ([facility]) 00 weekly. Medical 2.4 mg/0.75 Start: Branch mL PnIj SC 0.25mg SC injection qWeek x 4 Weeks; then 0.5mg SC qWeek x 4 Weeks; then 1mg SC qWeek x 4 Weeks; thes1.7mg SC qWeek x 4 Weeks; then 2.4mg qWeek. semaglutide 2022-0 2022- No [id number] Start: Univers , weight 5-24 08-29 0.25mg SC ity o f loss, 00:00: 00:00 qWeek x 4 [place] ([facility]) 1 00 :00 Weeks; Medical mg/0.5 mL then 0.5mg Bran ch PnIj SC SC qWeek x injection 4 Weeks; then 1mg SC qWeek x 4 Weeks; then 1.7mg SC qWeek x 4 Weeks; then 2.4mg qWeek. lisinopriL 2022-0 2022- No [id number] 5mg Take 1 [facility] 5 mg tablet 08-13- tablet by it y of 00:00: 00:00 mouth in [place] 00 :00 the Medical morning. [facility] hydroCHLORO 2022-0 2022- No [id number] 12.5mg Take 1 [facility] thiazide 08-13- capsule by ity of 12.5 mg 00:00: 00:00 mouth in [place] capsule 00 :00 the Medical morning. [facility] semaglutide 2022- No [id number] Start: Univers , weight -13 11-29 0.25mg SC ity o f loss, 00:00: 00:00 qWeek x 4 [place] ([facility]) 1 00 :00 Weeks; Medical mg/0.5 mL then 0.5mg Bran ch PnIj SC SC qWeek x injection 4 Weeks; then 1mg SC qWeek x 4 Weeks; then 1.7mg SC qWeek x 4 Weeks; then 2.4mg qWeek. lisinopriL 2022-2022- No [id number] 5mg Take 1 [facility] 5 mg tablet 08-13- tablet by it y of 00:00: 00:00 mouth in [place] 00 :00 the Medical morning. [facility] hydroCHLORO 2022-2022- No [id number] 12.5mg Take 1 [facility] thiazide 08-13 capsule by ity of 12.5 mg 00:00: 00:00 mouth in [place] capsule 00 :00 the Medical morning. [facility] lisdexamfet 2022-2022- No [id number] 30mg Take 1 [facility] amine -24 07-06 capsule by ity of (VYVANSE) 00:00: 00:00 mouth [place] 30 mg 00 :00 every Medical capsule morning. [facility] semaglutide 2022-0 2022- No [id number] 1.7mg inject 1.7 Univers , weight 5-24 06-20 mg under ity of loss, 00:00: 00:00 the skin [place] ([facility]) 00 :00 weekly. Medical 1.7 mg/0.75 for 4 Branch mL PnIj SC weeks injection semaglutide 2022-0 Yes [id number] 1.7mg inject 1.7 Univers , weight 3-21 mg under ity of loss, 00:00: the skin [place] ([facility]) 00 weekly. Medical 1.7 mg/0.75 for 4 Branch mL PnIj SC weeks injection lisdexamfet 3-0 Yes [id number] 30mg Take 1 [facility] amine 3-21 capsule by ity of (VYVANSE) 00:00: mouth [place] 30 mg 00 every Medical capsule morning. Branch lisdexamfet 3-0 Yes [id number] 30mg Take 1 [facility] amine 3-21 capsule by ity of (VYVANSE) 00:00: mouth [place] 30 mg 00 every Medical capsule morning. Branch semaglutide 3-0 Yes [id number] 1.7mg inject 1.7 Univers , weight 3-21 mg under ity of loss, 00:00: the skin [place] ([facility]) 00 weekly. Medical 1.7 mg/0.75 for 4 Branch mL PnIj SC weeks injection lisdexamfet 3-0 Yes [id number] 30mg Take 1 [facility] amine 3-21 capsule by ity of (VYVANSE) 00:00: mouth [place] 30 mg 00 every Medical capsule morning. Branch semaglutide 3-0 Yes [id number] 1.7mg inject 1.7 Univers , weight 3-21 mg under ity of loss, 00:00: the skin [place] ([facility]) 00 weekly. Medical 1.7 mg/0.75 for 4 Branch mL PnIj SC weeks injection lisdexamfet 3-0 3- No [id number] 30mg Take 1 [facility] amine 3-21 05-24 capsule by ity of (VYVANSE) 00:00: 00:00 mouth [place] 30 mg 00 :00 every Medical capsule morning. Branch semaglutide 3-0 3- No [id number] 1.7mg inject 1.7 Univers , weight 3-21 05-24 mg under ity of loss, 00:00: 00:00 the skin [place] ([facility]) 00 :00 weekly. Medical 1.7 mg/0.75 for 4 Branch mL PnIj SC weeks injection lisdexamfet 3-0 2023- No [id number] 30mg Take 1 [facility] amine 3-21 05-24 capsule by ity of (VYVANSE) 00:00: 00:00 mouth [place] 30 mg 00 :00 every Medical capsule morning. Branch semaglutide 0 2022- No [id number] 1.7mg inject 1.7 Univers , weight 3-21 05-24 mg under ity of loss, 00:00: 00:00 the skin [place] ([facility]) 00 :00 weekly. Medical 1.7 mg/0.75 for 4 Branch mL PnIj SC weeks injection semaglutide 2022-0 Yes [id number] Start: Univers , weight 3-20 0.25mg SC ity of loss, 00:00: qWeek x 4 [place] ([facility]) 1 00 Weeks; Medical mg/0.5 mL then 0.5mg Bran ch PnIj SC SC qWeek x injection 4 Weeks; then 1mg SC qWeek x 4 Weeks; then 1.7mg SC qWeek x 4 Weeks; then 2.4mg qWeek. semaglutide 2022-0 Yes [id number] Start: Univers , weight 3-20 0.25mg SC ity of loss, 00:00: qWeek x 4 [place] ([facility]) 1 00 Weeks; Medical mg/0.5 mL then 0.5mg Bran ch PnIj SC SC qWeek x injection 4 Weeks; then 1mg SC qWeek x 4 Weeks; then 1.7mg SC qWeek x 4 Weeks; then 2.4mg qWeek. semaglutide 2022-0 Yes [id number] Start: Univers , weight 3-20 0.25mg SC ity of loss, 00:00: qWeek x 4 [place] ([facility]) 1 00 Weeks; Medical mg/0.5 mL then 0.5mg Bran ch PnIj SC SC qWeek x injection 4 Weeks; then 1mg SC qWeek x 4 Weeks; then 1.7mg SC qWeek x 4 Weeks; then 2.4mg qWeek. semaglutide 2023-0 Yes [id number] Start: Univers , weight 3-20 0.25mg SC ity of loss, 00:00: qWeek x 4 [place] ([facility]) 1 00 Weeks; Medical mg/0.5 mL then 0.5mg Bran ch PnIj SC SC qWeek x injection 4 Weeks; then 1mg SC qWeek x 4 Weeks; then 1.7mg SC qWeek x 4 Weeks; then 2.4mg qWeek. semaglutide Yes [id number] Start: Univers , weight 3-20 0.25mg SC ity of loss, 00:00: qWeek x 4 [facility] 00 Weeks; Medical mg/0.5 mL then 0.5mg Bran ch PnIj SC SC qWeek x injection 4 Weeks; then 1mg SC qWeek x 4 Weeks; then 1.7mg SC qWeek x 4 Weeks; then 2.4mg qWeek. semaglutide 2022- No [id number] Start: Univers , weight 3-20 05-24 0.25mg SC ity o f loss, 00:00: 00:00 qWeek x 4 [place] [id number] 00 :00 Weeks; Medical mg/0.5 mL then 0.5mg Bran ch PnIj SC SC qWeek x injection 4 Weeks; then 1mg SC qWeek x 4 Weeks; then 1.7mg SC qWeek x 4 Weeks; then 2.4mg qWeek. semaglutide 2022- No [id number] Start: Univers , weight 3-20 05-24 0.25mg SC ity o f loss, 00:00: 00:00 qWeek x 4 [place] [id number] 00 :00 Weeks; Medical mg/0.5 mL then 0.5mg Bran ch PnIj SC SC qWeek x injection 4 Weeks; then 1mg SC qWeek x 4 Weeks; then 1.7mg SC qWeek x 4 Weeks; then 2.4mg qWeek. predniSONE 2022-2022- No [id number] 20mg Take 1 Univers 20 mg 04-29-13 tablet by ity of tablet 00:00: 05:59 mouth in [place] 00 :00 the Medical morning Branch for 5 days. lisdexamfet Yes [id number] 30mg Take 1 [facility] amine 2-02 capsule by ity of (VYVANSE) 00:00: mouth [place] 30 mg 00 every Medical capsule morning. Branch lisdexamfet 2023-0 Yes [id number] 30mg Take 1 [facility] amine 2-02 capsule by ity of (VYVANSE) 00:00: mouth [place] 30 mg 00 every Medical capsule morning. Branch lisdexamfet 2022-0 Yes [id number] 30mg Take 1 [facility] amine 2-02 capsule by ity of (VYVANSE) 00:00: mouth [place] 30 mg 00 every Medical capsule morning. Branch lisdexamfet 2022-0 Yes [id number] 30mg Take 1 [facility] amine 2-02 capsule by ity of ([facility]YVANSE) 00:00: mouth [place] 30 mg 00 every Medical capsule morning. Branch lisdexamfet 2022-0 Yes [id number] 30mg Take 1 [facility] amine 2-02 capsule by ity of (VYVANSE) 00:00: mouth [place] 30 mg 00 every Medical capsule morning. Branch lisdexamfet 2022-0 Yes [id number] 30mg Take 1 [facility] amine 2-02 capsule by ity of ([facility]YVANSE) 00:00: mouth [place] 30 mg 00 every Medical capsule morning. Branch lisdexamfet 2022-0 Yes [id number] 30mg Take 1 [facility] amine 2-02 capsule by ity of (VYVANSE) 00:00: mouth [place] 30 mg 00 every Medical capsule morning. Branch lisdexamfet 2022-0 Yes [id number] 30mg Take 1 [facility] amine 2-02 capsule by ity of (VYVANSE) 00:00: mouth [place] 30 mg 00 every Medical capsule morning. Branch lisdexamfet 2022-0 Yes [id number] 30mg Take 1 [facility] amine 2-02 capsule by ity of ([facility]YVANSE) 00:00: mouth [place] 30 mg 00 every Medical capsule morning. Branch lisdexamfet 2022-0 Yes [id number] 30mg Take 1 [facility] amine 2-02 capsule by ity of (VYVANSE) 00:00: mouth [place] 30 mg 00 every Medical capsule morning. Branch lisdexamfet 2022-0 3- No [id number] 30mg Take 1 [facility] amine 2-02 03-19 capsule by ity of (VYVANSE) 00:00: 00:00 mouth [place] 30 mg 00 :00 every Medical capsule morning. Branch norgestrel- 2021-1 Yes [id number] 1{tbl} Take 1 [facility] ethinyl 2-20 tablet by ity of estradioL 00:00: mouth in [facility] ([facility] 00 the Medical EL) 0.3-30 morning. Branc h mg-mcg per tablet lisdexamfet 2021- Yes [id number] 30mg Take 1 [facility] amine 2-20 capsule by ity of (VYVANSE) 00:00: mouth [place] 30 mg 00 every Medical capsule morning. Branch lisinopriL 2021- Yes [id number] 5mg Take 1 U nivers 5 mg tablet 2-20 tablet by ity of 00:00: mouth in [place] the Medical morning. Branch norgestrel- 2021-03 Yes [id number] 1{tbl} Take 1 [facility] ethinyl 2-20 tablet by ity of estradioL 00:00: mouth in [facility] ([facility] 00 the Medical ) 0.3-30 morning. Branc h mg-mcg per tablet lisdexamfet 2021-03 Yes [id number] 30mg Take 1 [facility] amine 2-20 capsule by ity of (VYVANSE) 00:00: mouth [place] 30 mg 00 every Medical capsule morning. Branch lisinopriL 2021-03 Yes [id number] 5mg Take 1 U nivers 5 mg tablet 2-20 tablet by ity of 00:00: mouth in [place] the Medical morning. Branch norgestrel- 2021- Yes [id number] 1{tbl} Take 1 [facility] ethinyl 2-20 tablet by ity of estradioL 00:00: mouth in [facility] ([facility] 00 the Medical EL) 0.3-30 morning. Branc h mg-mcg per tablet lisdexamfet 2021- Yes [id number] 30mg Take 1 [facility] amine 2-20 capsule by ity of (VYVANSE) 00:00: mouth [place] 30 mg 00 every Medical capsule morning. Branch lisinopriL 2021- Yes [id number] 5mg Take 1 U nivers 5 mg tablet 2-20 tablet by ity of 00:00: mouth in [place] the Medical morning. Branch norgestrel- 2021- Yes [id number] 1{tbl} Take 1 [facility] ethinyl 2-20 tablet by ity of estradioL 00:00: [place] ([facility] 00 the Medical ) 0.3-30 morning. Branc h mg-mcg per tablet lisinopriL 2021-03 Yes [id number] 5mg Take 1 U nivers 5 mg tablet 2-20 tablet by ity of 00:00: mouth in [place] 00 the Medical morning. Branch norgestrel- 2021- Yes [id number] 1{tbl} Take 1 [facility] ethinyl 2-20 tablet by ity of estradioL 00:00: mouth in [facility] ([facility] 00 the Medical ) 0.3-30 morning. Branc h mg-mcg per tablet lisinopriL 2021-03 Yes [id number] 5mg Take 1 U nivers 5 mg tablet 2-20 tablet by ity of 00:00: mouth in [place] the Medical morning. Branch norgestrel- 2021-03 Yes [id number] 1{tbl} Take 1 [facility] ethinyl 2-20 tablet by ity of estradioL 00:00: mouth in [facility] ([facility] 00 the Medical ) 0.3-30 morning. Branc h mg-mcg per tablet lisinopriL 2021-03 Yes [id number] 5mg Take 1 U nivers 5 mg tablet 2-20 tablet by ity of 00:00: mouth in [place] the morning. Branch norgestrel- 2021- Yes [id number] 1{tbl} Take 1 [facility] ethinyl 2-20 tablet by ity of estradioL 00:00: mouth in [facility] ([facility] 00 the Medical ) 0.3-30 morning. Branc h mg-mcg per tablet lisinopriL 2021-03 Yes [id number] 5mg Take 1 U nivers 5 mg tablet 2-20 tablet by ity of 00:00: mouth in [place] the Medical morning. Branch norgestrel- 2021- Yes [id number] 1{tbl} Take 1 [facility] ethinyl 2-20 tablet by ity of estradioL 00:00: mouth in [facility] ([facility] 00 the Medical ) 0.3-30 morning. Branc h mg-mcg per tablet lisinopriL 2021-03 Yes [id number] 5mg Take 1 U nivers 5 mg tablet 2-20 tablet by ity of 00:00: mouth in [place] the Medical morning. Branch norgestrel- 2021-03 Yes [id number] 1{tbl} Take 1 [facility] ethinyl 2-20 tablet by ity of estradioL 00:00: mouth in [facility] ([facility] 00 the Medical ) 0.3-30 morning. Branc h mg-mcg per tablet lisinopriL 2021-03 Yes [id number] 5mg Take 1 U nivers 5 mg tablet 2-20 tablet by ity of 00:00: mouth in [place] the morning. Branch norgestrel- 2021-03 Yes [id number] 1{tbl} Take 1 [facility] ethinyl 2-20 tablet by ity of estradioL 00:00: mouth in [facility] ([facility]STR 00 the Medical ) 0.3-30 morning. Branc h mg-mcg per tablet lisinopriL 2021-03 Yes [id number] 5mg Take 1 U nivers 5 mg tablet 2-20 tablet by ity of 00:00: mouth in [place] the morning. Branch norgestrel- 2021-03 Yes [id number] 1{tbl} Take 1 [facility] ethinyl 2-20 tablet by ity of estradioL 00:00: mouth in [facility] (LOW-OGESTR 00 the Medical ) 0.3-30 morning. Branc h mg-mcg per tablet lisinopriL 2021-03 Yes [id number] 5mg Take 1 U nivers 5 mg tablet 2-20 tablet by ity of 00:00: mouth in [place] the morning. Branch norgestrel- 2021- Yes [id number] 1{tbl} Take 1 [facility] ethinyl 2-20 tablet by ity of estradioL 00:00: mouth in [facility] (LOW-OGESTR 00 the Medical ) 0.3-30 morning. Branc h mg-mcg per tablet lisinopriL 2021-03 Yes [id number] 5mg Take 1 U nivers 5 mg tablet 2-20 tablet by ity of 00:00: mouth in [place] the Medical morning. Branch norgestrel- 2021-03 Yes [id number] 1{tbl} Take 1 [facility] ethinyl 2-20 tablet by ity of estradioL 00:00: mouth in [facility] (LOW-OGESTR 00 the Medical EL) 0.3-30 morning. Branc h mg-mcg per tablet lisinopriL 2021-03 Yes [id number] 5mg Take 1 U nivers 5 mg tablet 2-20 tablet by ity of 00:00: mouth in [place] 00 the Medical morning. Branch norgestrel- 2021-03 Yes [id number] 1{tbl} Take 1 [facility] ethinyl 2-20 tablet by ity of estradioL 00:00: [place] (LOW-OGESTR 00 the Medical EL) 0.3-30 morning. Branc h mg-mcg per tablet lisinopriL 2021-03 Yes [id number] 5mg Take 1 U nivers 5 mg tablet 2-20 tablet by ity of 00:00: mouth in [place] the Medical morning. Branch norgestrel- 2021-03 Yes [id number] 1{tbl} Take 1 [facility] ethinyl 2-20 tablet by ity of estradioL 00:00: mouth in [facility] (LOW-OGESTR 00 the Medical ) 0.3-30 morning. Branc h mg-mcg per tablet lisinopriL 2021-03 Yes [id number] 5mg Take 1 U nivers 5 mg tablet 2-20 tablet by ity of 00:00: mouth in [place] the Medical morning. Branch norgestrel- 2021-03 Yes [id number] 1{tbl} Take 1 [facility] ethinyl 2-20 tablet by ity of estradioL 00:00: mouth in [facility] s (LOW-OGESTR 00 the Medical ) 0.3-30 morning. Branc h mg-mcg per tablet lisinopriL 2021-03 Yes [id number] 5mg Take 1 U nivers 5 mg tablet 2-20 tablet by ity of 00:00: mouth in [place] the Medical morning. Branch norgestrel- 2021-03 Yes [id number] 1{tbl} Take 1 [facility] ethinyl 2-20 tablet by ity of estradioL 00:00: [place] (LOW-OGESTR 00 the Medical EL) 0.3-30 morning. Branc h mg-mcg per tablet lisinopriL 2021-03 Yes [id number] 5mg Take 1 U nivers 5 mg tablet 2-20 tablet by ity of 00:00: mouth in [place] 00 the Medical morning. Branch norgestrel- 2021- Yes [id number] 1{tbl} Take 1 [facility] ethinyl 2-20 tablet by ity of estradioL 00:00: [place] (LOW-OGESTR 00 the Medical EL) 0.3-30 morning. Branc h mg-mcg per tablet norgestrel- 2021- Yes [id number] 1{tbl} Take 1 [facility] ethinyl 2-20 tablet by ity of estradioL 00:00: [place] (LOW-OGESTR 00 the Medical EL) 0.3-30 morning. Branc h mg-mcg per tablet norgestrel- 2021- Yes [id number] 1{tbl} Take 1 [facility] ethinyl 2-20 tablet by ity of estradioL 00:00: [place] (LOW-OGESTR 00 the Medical EL) 0.3-30 morning. Branc h mg-mcg per tablet norgestrel- 2021-03 Yes [id number] 1{tbl} Take 1 [facility] ethinyl 2-20 tablet by ity of estradioL 00:00: mouth [place] (LOW-OGESTR 00 the Medical EL) 0.3-30 morning. Branc h mg-mcg per tablet norgestrel- 2021- Yes [id number] 1{tbl} Take 1 [facility] ethinyl 2-20 tablet by ity of estradioL 00:00: [place] (LOW-OGESTR 00 the Medical EL) 0.3-30 morning. Branc h mg-mcg per tablet norgestrel- 2021- Yes [id number] 1{tbl} Take 1 [facility] ethinyl 2-20 tablet by ity of estradioL 00:00: mouth [place] (LOW-OGESTR 00 the Medical EL) 0.3-30 morning. Branc h mg-mcg per tablet norgestrel- 2021- Yes [id number] 1{tbl} Take 1 [facility] ethinyl 2-20 tablet by ity of estradioL 00:00: [place] (LOW-OGESTR 00 the Medical EL) 0.3-30 morning. Branc h mg-mcg per tablet norgestrel- 2021- Yes [id number] 1{tbl} Take 1 [facility] ethinyl 2-20 tablet by ity of estradioL 00:00: [place] (LOW-OGESTR 00 the Medical EL) 0.3-30 morning. Branc h mg-mcg per tablet norgestrel- 2021- Yes [id number] 1{tbl} Take 1 [facility] ethinyl 2-20 tablet by ity of estradioL 00:00: [place] (LOW-OGESTR 00 the Medical EL) 0.3-30 morning. Branc h mg-mcg per tablet norgestrel- 2021- Yes [id number] 1{tbl} Take 1 [facility] ethinyl 2-20 tablet by ity of estradioL 00:00: [place] (LOW-OGESTR 00 the Medical EL) 0.3-30 morning. Branc h mg-mcg per tablet norgestrel- 2021- Yes [id number] 1{tbl} Take 1 [facility] ethinyl 2-20 tablet by ity of estradioL 00:00: mouth [place] (LOW-OGESTR 00 the Medical EL) 0.3-30 morning. Branc h mg-mcg per tablet norgestrel- 2021- Yes [id number] 1{tbl} Take 1 [facility] ethinyl 2-20 tablet by ity of estradioL 00:00: mouth [place] (LOW-OGESTR 00 the Medical EL) 0.3-30 morning. Branc h mg-mcg per tablet norgestrel- 2021- Yes [id number] 1{tbl} Take 1 [facility] ethinyl 2-20 tablet by ity of estradioL 00:00: [place] (LOW-OGESTR 00 the Medical EL) 0.3-30 morning. Branc h mg-mcg per tablet norgestrel- 2021- Yes [id number] 1{tbl} Take 1 [facility] ethinyl 2-20 tablet by ity of estradioL 00:00: mouth [place] (LOW-OGESTR 00 the Medical EL) 0.3-30 morning. Branc h mg-mcg per tablet norgestrel- 2021- Yes [id number] 1{tbl} Take 1 [facility] ethinyl 2-20 tablet by ity of estradioL 00:00: [place] (LOW-OGESTR 00 the Medical EL) 0.3-30 morning. Branc h mg-mcg per tablet norgestrel- 2021-03 Yes [id number] 1{tbl} Take 1 [facility] ethinyl 2-20 tablet by ity of estradioL 00:00: [facility] (LOW-OGESTR 00 the Medical ) 0.3-30 morning. Branc h mg-mcg per tablet norgestrel- 2021-03 Yes [id number] 1{tbl} Take 1 [facility] ethinyl 2-20 tablet by ity of estradioL 00:00: mouth in [facility] (LOW-OGESTR 00 the Medical ) 0.3-30 morning. Branc h mg-mcg per tablet norgestrel- 2021-03 Yes [id number] 1{tbl} Take 1 [facility] ethinyl 2-20 tablet by ity of estradioL 00:00: mouth in [facility] (LOW-OGESTR 00 the Medical ) 0.3-30 morning. Branc h mg-mcg per tablet norgestrel- 2021-03 Yes [id number] 1{tbl} Take 1 [facility] ethinyl 2-20 tablet by ity of estradioL 00:00: mouth in [facility] (LOW-OGESTR 00 the Medical ) 0.3-30 morning. Branc h mg-mcg per tablet norgestrel- 2021-03 Yes [id number] 1{tbl} Take 1 [facility] ethinyl 2-20 tablet by ity of estradioL 00:00: mouth in [facility] (LOW-OGESTR 00 the Medical ) 0.3-30 morning. Branc h mg-mcg per tablet lisinopriL 2021-03- No [id number] 5mg Take 1 [facility] 5 mg tablet 2-20 05-24 tablet by it y of 00:00: 00:00 mouth in [place] 00 :00 the Medical morning. Branch lisinopriL 2021-03- No [id number] 5mg Take 1 [facility] 5 mg tablet 2-20 05-24 tablet by it y of 00:00: 00:00 mouth in [place] 00 :00 the Medical morning. Branch lisdexamfet 2021-03- No [id number] 30mg Take 1 [facility] amine 2-20 - capsule by ity of (VYVANSE) 00:00: 00:00 mouth [place] 30 mg 00 :00 every Medical capsule morning. Branch LOW-OGESTRE 2021-03 Yes [id number] TAKE 1 [facility] L 0.3-30 2-09 TABLET BY ity of mg-mcg per 00:00: MOUTH [place] tablet 00 EVERY DAY Medical Branch LOW-OGESTRE 2021-03 Yes [id number] TAKE 1 [facility] L 0.3-30 2-09 TABLET BY ity of mg-mcg per 00:00: MOUTH [place] tablet 00 EVERY DAY Medical Branch LOW-OGESTRE 2021-03- No [id number] TAKE 1 [facility] L 0.3-30 2-09 12-20 TABLET BY ity o f mg-mcg per 00:00: 00:00 MOUTH [place] tablet 00 :00 EVERY DAY Medical Branch LOW-OGESTRE 2021-03- No [id number] TAKE 1 [facility] L 0.3-30 2-09 12-20 TABLET BY ity o f mg-mcg per 00:00: 00:00 MOUTH [place] tablet 00 :00 EVERY DAY Medical Branch nystatin/ma 2021-03 Yes [id number] 5mL Take 5 mL [facility] alox/diphen 1-17 by mouth 4 it y of hydrAMINE/l 00:00: (four) [place] idocaine 2 00 times Medical % viscous daily as Branch 1:1:1:1 needed Susp (Sore suspension throat). Gargle and spit, do not swallow calcium 2021-03 Yes [id number] 500mg Take 1 Uni vers carbonate 1-17 tablet by ity o f (CALCIUM 00:00: mouth in [place] 500) 500 mg 00 the Medical calcium morning. Branch (1,250 mg) tablet vitamin C 2021-03 Yes [id number] 1000mg Take 1 [facility] with anna 1-17 tablet by ity o f hips 00:00: mouth in [place] (VITAMIN C) 00 the Medical 1,000 mg morning. Branch tablet Magnesium 2021-03 Yes [id number] 30{tbl} Take 30 [facility] 250 mg Tab 1-17 tablets by ity of 00:00: mouth [place] 00 daily. Medical Branch Zinc 2021-03 Yes [id number] 30{tbl} Take 30 Uni vers Gluconate 1-17 tablets by ity of 100 mg Tab 00:00: mouth [place] 00 daily. Medical Branch semaglutide 2021-03 Yes [id number] Start: Univers , weight 1-17 0.25mg SC ity of loss, 00:00: qWeek x 4 [place] (WEVY) 00 Weeks; Medical 0.25 mg/0.5 then 0.5mg Br anch mL PnIj SC SC qWeek x injection 4 Weeks; then 1mg SC qWeek x 4 Weeks; then 1.7mg SC qWeek x 4 Weeks; then 2.4mg qWeek. semaglutide 2021-03 Yes [id number] Start: Univers , weight 1-17 0.25mg SC ity of loss, 00:00: qWeek x 4 [place] (GOVY) 1 00 Weeks; Medical mg/0.5 mL then 0.5mg Bran ch PnIj SC SC qWeek x injection 4 Weeks; then 1mg SC qWeek x 4 Weeks; then 1.7mg SC qWeek x 4 Weeks; then 2.4mg qWeek. lisdexamfet 2021-03 Yes [id number] 30mg Take 1 [facility] amine 1-17 capsule by ity of (VYVANSE) 00:00: mouth [place] 30 mg 00 every Medical capsule morning. Branch nystatin/ma 2021-03 Yes [id number] 5mL Take 5 mL [facility] alox/diphen 1-17 by mouth 4 it y of hydrAMINE/l 00:00: (four) [place] idocaine 2 00 times Medical % viscous daily as Branch 1:1:1:1 needed Susp (Sore suspension throat). Gargle and spit, do not swallow calcium 2021-03 Yes [id number] 500mg Take 1 [facility] vers carbonate 1-17 tablet by ity o f (CALCIUM 00:00: mouth in [place] 500) 500 mg 00 the Medical calcium morning. Branch (1,250 mg) tablet vitamin C 2021-03 Yes [id number] 1000mg Take 1 [facility] with anna 1-17 tablet by ity o f hips 00:00: mouth in [place] (VITAMIN C) 00 the Medical 1,000 mg morning. Branch tablet Magnesium 2021-03 Yes [id number] 30{tbl} Take 30 [facility] 250 mg Tab 1-17 tablets by ity of 00:00: mouth [place] 00 daily. Medical Branch Zinc 2021-03 Yes [id number] 30{tbl} Take 30 Uni vers Gluconate 1-17 tablets by ity of 100 mg Tab 00:00: mouth 00 daily. Medical Branch semaglutide 2021-03 Yes [id number] Start: Univers , weight 1-17 0.25mg SC ity of loss, 00:00: qWeek x 4 [place] [facility] We[facility]; Medical 0.25 mg/0.5 then 0.5mg Br anch mL PnIj SC SC qWeek x injection 4 Weeks; then 1mg SC qWeek x 4 Weeks; then 1.7mg SC qWeek x 4 Weeks; then 2.4mg qWeek. semaglutide 2021-03 Yes [id number] Start: Univers , weight 1-17 0.25mg SC ity of loss, 00:00: qWeek x 4 ([facility] 1 00 Weeks; Medical mg/0.5 mL then 0.5mg Bran ch PnIj SC SC qWeek x injection 4 Weeks; then 1mg SC qWeek x 4 Weeks; then 1.7mg SC qWeek x 4 Weeks; then 2.4mg qWeek. lisdexamfet 2021-03 Yes [id number] 30mg Take 1 [facility] amine 1-17 capsule by ity of (VYVANSE) 00:00: mouth [place] 30 mg 00 every Medical capsule morning. Branch nystatin/ma 2021-03 Yes [id number] 5mL Take 5 mL [facility] alox/diphen 1-17 by mouth 4 it y of hydrAMINE/l 00:00: (four) [place] idocaine 2 00 times Medical % viscous daily as Branch 1:1:1:1 needed Susp (Sore suspension throat). Gargle and spit, do not swallow calcium 2021-03 Yes [id number] 500mg Take 1 Uni vers carbonate 1-17 tablet by ity o f (CALCIUM 00:00: mouth in [place] 500) 500 mg 00 the Medical calcium morning. Branch (1,250 mg) tablet vitamin C 2021-03 Yes [id number] 1000mg Take 1 [facility] with anna 1-17 tablet by ity o f hips 00:00: mouth in [place] (VITAMIN C) 00 the Medical 1,000 mg morning. Branch tablet Magnesium 2021-03 Yes [id number] 30{tbl} Take 30 [facility] 250 mg Tab 1-17 tablets by ity of 00:00: mouth [place] 00 daily. Medical Branch Zinc 2021-03 Yes [id number] 30{tbl} Take 30 [facility] vers Gluconate 1-17 tablets by ity of 100 mg Tab 00:00: mouth [place] 00 daily. Medical Branch semaglutide 2021-03 Yes [id number] Start: Univers , weight 1-17 0.25mg SC ity of loss, 00:00: qWeek x 4 [place] (WEGOVY) 00 Weeks; Medical 0.25 mg/0.5 then 0.5mg Br anch mL PnIj SC SC qWeek x injection 4 Weeks; then 1mg SC qWeek x 4 Weeks; then 1.7mg SC qWeek x 4 Weeks; then 2.4mg qWeek. semaglutide 2021-03 Yes [id number] Start: Univers , weight 1-17 0.25mg SC ity of loss, 00:00: qWeek x 4 (WEGOVY) 1 00 Weeks; Medical mg/0.5 mL then 0.5mg Bran ch PnIj SC SC qWeek x injection 4 Weeks; then 1mg SC qWeek x 4 Weeks; then 1.7mg SC qWeek x 4 Weeks; then 2.4mg qWeek. lisdexamfet 2021-03 Yes [id number] 30mg Take 1 [facility] amine 1-17 capsule by ity of (VYVANSE) 00:00: mouth [place] 30 mg 00 every Medical capsule morning. Branch nystatin/ma 2021-03 Yes [id number] 5mL Take 5 mL [facility] alox/diphen 1-17 by mouth 4 it y of hydrAMINE/l 00:00: (four) [place] idocaine 2 00 times Medical % viscous daily as Branch 1:1:1:1 needed Susp (Sore suspension throat). Gargle and spit, do not swallow calcium 2021-03 Yes [id number] 500mg Take 1 [facility] vers carbonate 1-17 tablet by ity o f (CALCIUM 00:00: mouth in [place] 500) 500 mg 00 the Medical calcium morning. Branch (1,250 mg) tablet vitamin C 2021-03 Yes [id number] 1000mg Take 1 [facility] with anna 1-17 tablet by ity o f hips 00:00: mouth in [place] (VITAMIN C) 00 the Medical 1,000 mg morning. Branch tablet Magnesium 2021-03 Yes [id number] 30{tbl} Take 30 [facility] 250 mg Tab 1-17 tablets by ity of 00:00: mouth [place] 00 daily. Medical Branch Zinc 2021-03 Yes [id number] 30{tbl} Take 30 Uni vers Gluconate 1-17 tablets by ity of 100 mg Tab 00:00: mouth [place] 00 daily. Medical Branch semaglutide 2021-03 Yes [id number] Start: Univers , weight 1-17 0.25mg SC ity of loss, 00:00: qWeek x 4 [place] (WEGOVY) 00 Weeks; Medical 0.25 mg/0.5 then 0.5mg Br anch mL PnIj SC SC qWeek x injection 4 Weeks; then 1mg SC qWeek x 4 Weeks; then 1.7mg SC qWeek x 4 Weeks; then 2.4mg qWeek. semaglutide 2021-03 Yes [id number] Start: Univers , weight 1-17 0.25mg SC ity of loss, 00:00: qWeek x 4 [place] (WEGOVY) 1 00 Weeks; Medical mg/0.5 mL then 0.5mg Bran ch PnIj SC SC qWeek x injection 4 Weeks; then 1mg SC qWeek x 4 Weeks; then 1.7mg SC qWeek x 4 Weeks; then 2.4mg qWeek. lisdexamfet 2021-03 Yes [id number] 30mg Take 1 [facility] amine 1-17 capsule by ity of (VYVANSE) 00:00: mouth [place] 30 mg 00 every Medical capsule morning. Branch nystatin/ma 2021-03 Yes [id number] 5mL Take 5 mL [facility] alox/diphen 1-17 by mouth 4 it y of hydrAMINE/l 00:00: (four) [place] idocaine 2 00 times Medical % viscous daily as Branch 1:1:1:1 needed Susp (Sore suspension throat). Gargle and spit, do not swallow calcium 2021-03 Yes [id number] 500mg Take 1 [facility] vers carbonate 1-17 tablet by ity o f (CALCIUM 00:00: mouth in [place] 500) 500 mg 00 the Medical calcium morning. Branch (1,250 mg) tablet vitamin C 2021-03 Yes [id number] 1000mg Take 1 [facility] with anna 1-17 tablet by ity o f hips 00:00: mouth in [place] (VITAMIN C) 00 the Medical 1,000 mg morning. Branch tablet Magnesium 2021-03 Yes [id number] 30{tbl} Take 30 [facility] 250 mg Tab 1-17 tablets by ity of 00:00: mouth [place] 00 daily. Medical Branch Zinc 2021-03 Yes [id number] 30{tbl} Take 30 [facility] vers Gluconate 1-17 tablets by ity of 100 mg Tab 00:00: mouth [place] 00 daily. Medical Branch semaglutide 2021-03 Yes [id number] Start: Univers , weight 1-17 0.25mg SC ity of loss, 00:00: qWeek x 4 [place] (WEGOVY) 00 Weeks; Medical 0.25 mg/0.5 then 0.5mg Br anch mL PnIj SC SC qWeek x injection 4 Weeks; then 1mg SC qWeek x 4 Weeks; then 1.7mg SC qWeek x 4 Weeks; then 2.4mg qWeek. semaglutide 2021-03 Yes [id number] Start: Univers , weight 1-17 0.25mg SC ity of loss, 00:00: qWeek x 4 [place] (WEGOVY) 1 00 Weeks; Medical mg/0.5 mL then 0.5mg Bran ch PnIj SC SC qWeek x injection 4 Weeks; then 1mg SC qWeek x 4 Weeks; then 1.7mg SC qWeek x 4 Weeks; then 2.4mg qWeek. nystatin/ma 2021-03 Yes [id number] 5mL Take 5 mL [facility] alox/diphen 1-17 by mouth 4 it y of hydrAMINE/l 00:00: (four) [place] idocaine 2 00 times Medical % viscous daily as Branch 1:1:1:1 needed Susp (Sore suspension throat). Gargle and spit, do not swallow calcium 2021-03 Yes [id number] 500mg Take 1 Uni vers carbonate 1-17 tablet by ity o f (CALCIUM 00:00: mouth in [place] 500) 500 mg 00 the Medical calcium morning. Branch (1,250 mg) tablet vitamin C 2021-03 Yes [id number] 1000mg Take 1 [facility] with anna 1-17 tablet by ity o f hips 00:00: mouth in [place] (VITAMIN C) 00 the Medical 1,000 mg morning. Branch tablet Magnesium 2021-03 Yes [id number] 30{tbl} Take 30 [facility] 250 mg Tab 1-17 tablets by ity of 00:00: mouth [place] 00 daily. Medical Branch Zinc 2021-03 Yes [id number] 30{tbl} Take 30 Uni vers Gluconate 1-17 tablets by ity of 100 mg Tab 00:00: mouth [place] 00 daily. Medical Branch semaglutide 2021-03 Yes [id number] Start: Univers , weight 1-17 0.25mg SC ity of loss, 00:00: qWeek x 4 [place] ([facility] 00 Weeks; Medical 0.25 mg/0.5 then 0.5mg Br anch mL PnIj SC SC qWeek x injection 4 Weeks; then 1mg SC qWeek x 4 Weeks; then 1.7mg SC qWeek x 4 Weeks; then 2.4mg qWeek. semaglutide 2021-03 Yes [id number] Start: Univers , weight 1-17 0.25mg SC ity of loss, 00:00: qWeek x 4 [place] (GOVY) 1 00 Weeks; Medical mg/0.5 mL then 0.5mg Bran ch PnIj SC SC qWeek x injection 4 Weeks; then 1mg SC qWeek x 4 Weeks; then 1.7mg SC qWeek x 4 Weeks; then 2.4mg qWeek. nystatin/ma 2021-03 Yes [id number] 5mL Take 5 mL [facility] alox/diphen 1-17 by mouth 4 it y of hydrAMINE/l 00:00: (four) [place] idocaine 2 00 times Medical % viscous daily as Branch 1:1:1:1 needed Susp (Sore suspension throat). Gargle and spit, do not swallow calcium 2021-03 Yes [id number] 500mg Take 1 [facility] vers carbonate 1-17 tablet by ity o f (CALCIUM 00:00: mouth in [place] 500) 500 mg 00 the Medical calcium morning. Branch (1,250 mg) tablet vitamin C 2021-03 Yes [id number] 1000mg Take 1 [facility] with anna 1-17 tablet by ity o f hips 00:00: mouth in [place] (VITAMIN C) 00 the Medical 1,000 mg morning. Branch tablet Magnesium 2021-03 Yes [id number] 30{tbl} Take 30 [facility] 250 mg Tab 1-17 tablets by ity of 00:00: mouth [place] 00 daily. Medical Branch Zinc 2021-03 Yes [id number] 30{tbl} Take 30 [facility] vers Gluconate 1-17 tablets by ity of 100 mg Tab 00:00: mouth 00 daily. Medical Branch semaglutide 2021-03 Yes [id number] Start: Univers , weight 1-17 0.25mg SC ity of loss, 00:00: qWeek x 4 [place] ([facility] 00 Weeks; Medical 0.25 mg/0.5 then 0.5mg Br anch mL PnIj SC SC qWeek x injection 4 Weeks; then 1mg SC qWeek x 4 Weeks; then 1.7mg SC qWeek x 4 Weeks; then 2.4mg qWeek. semaglutide 2021-03 Yes [id number] Start: Univers , weight 1-17 0.25mg SC ity of loss, 00:00: qWeek x 4 [place] ([facility]) 00 Weeks; Medical mg/0.5 mL then 0.5mg Bran ch PnIj SC SC qWeek x injection 4 Weeks; then 1mg SC qWeek x 4 Weeks; then 1.7mg SC qWeek x 4 Weeks; then 2.4mg qWeek. nystatin/ma 2021-03 Yes [id number] 5mL Take 5 mL [facility] alox/diphen 1-17 by mouth 4 it y of hydrAMINE/l 00:00: (four) [place] idocaine 2 00 times Medical % viscous daily as Branch 1:1:1:1 needed Susp (Sore suspension throat). Gargle and spit, do not swallow calcium 2021-03 Yes [id number] 500mg Take 1 [facility] vers carbonate 1-17 tablet by ity o f (CALCIUM 00:00: mouth in [place] 500) 500 mg 00 the Medical calcium morning. Branch (1,250 mg) tablet vitamin C 2021-03 Yes [id number] 1000mg Take 1 [facility] with anna 1-17 tablet by ity o f hips 00:00: mouth in [place] (VITAMIN C) 00 the Medical 1,000 mg morning. Branch tablet Magnesium 2021-03 Yes [id number] 30{tbl} Take 30 [facility] 250 mg Tab 1-17 tablets by ity of 00:00: mouth [place] 00 daily. Medical Branch Zinc 2021-03 Yes [id number] 30{tbl} Take 30 [facility] vers Gluconate 1-17 tablets by ity of 100 mg Tab 00:00: mouth [place] 00 daily. Medical Branch semaglutide 2021-03 Yes [id number] Start: Univers , weight 1-17 0.25mg SC ity of loss, 00:00: qWeek x 4 ([facility] 00 Weeks; Medical 0.25 mg/0.5 then 0.5mg Br anch mL PnIj SC SC qWeek x injection 4 Weeks; then 1mg SC qWeek x 4 Weeks; then 1.7mg SC qWeek x 4 Weeks; then 2.4mg qWeek. semaglutide 2021-03 Yes [id number] Start: Univers , weight 1-17 0.25mg SC ity of loss, 00:00: qWeek x 4 [place] ([facility]) 00 Weeks; Medical mg/0.5 mL then 0.5mg Bran ch PnIj SC SC qWeek x injection 4 Weeks; then 1mg SC qWeek x 4 Weeks; then 1.7mg SC qWeek x 4 Weeks; then 2.4mg qWeek. nystatin/ma 2021-03 Yes [id number] 5mL Take 5 mL [facility] alox/diphen 1-17 by mouth 4 it y of hydrAMINE/l 00:00: (four) [place] idocaine 2 00 times Medical % viscous daily as Branch 1:1:1:1 needed Susp (Sore suspension throat). Gargle and spit, do not swallow calcium 2021-03 Yes [id number] 500mg Take 1 [facility] vers carbonate 1-17 tablet by ity o f (CALCIUM 00:00: mouth in [place] 500) 500 mg 00 the Medical calcium morning. Branch (1,250 mg) tablet vitamin C 2021-03 Yes [id number] 1000mg Take 1 [facility] with anna 1-17 tablet by ity o f hips 00:00: mouth in [place] (VITAMIN C) 00 the Medical 1,000 mg morning. Branch tablet Magnesium 2021-03 Yes [id number] 30{tbl} Take 30 [facility] 250 mg Tab 1-17 tablets by ity of 00:00: mouth [place] 00 daily. Medical Branch Zinc 2021-03 Yes [id number] 30{tbl} Take 30 [facility] vers Gluconate 1-17 tablets by ity of 100 mg Tab 00:00: mouth [place] 00 daily. Medical Branch semaglutide 2021-03 Yes [id number] Start: Univers , weight 1-17 0.25mg SC ity of loss, 00:00: qWeek x 4 ([facility] 00 Weeks; Medical 0.25 mg/0.5 then 0.5mg Br anch mL PnIj SC SC qWeek x injection 4 Weeks; then 1mg SC qWeek x 4 Weeks; then 1.7mg SC qWeek x 4 Weeks; then 2.4mg qWeek. semaglutide 2021-03 Yes [id number] Start: Univers , weight 1-17 0.25mg SC ity of loss, 00:00: qWeek x 4 ([facility]) 1 00 Weeks; Medical mg/0.5 mL then 0.5mg Bran ch PnIj SC SC qWeek x injection 4 Weeks; then 1mg SC qWeek x 4 Weeks; then 1.7mg SC qWeek x 4 Weeks; then 2.4mg qWeek. nystatin/ma 2021-03 Yes [id number] 5mL Take 5 mL [facility] alox/diphen 1-17 by mouth 4 it y of hydrAMINE/l 00:00: (four) [place] idocaine 2 00 times Medical % viscous daily as Branch 1:1:1:1 needed Susp (Sore suspension throat). Gargle and spit, do not swallow calcium 2021-03 Yes [id number] 500mg Take 1 [facility] vers carbonate 1-17 tablet by ity o f (CALCIUM 00:00: mouth in [place] 500) 500 mg 00 the Medical calcium morning. Branch (1,250 mg) tablet vitamin C 2021-03 Yes [id number] 1000mg Take 1 [facility] with anna 1-17 tablet by ity o f hips 00:00: mouth in [place] (VITAMIN C) 00 the Medical 1,000 mg morning. Branch tablet Magnesium 2021-03 Yes [id number] 30{tbl} Take 30 [facility] 250 mg Tab 1-17 tablets by ity of 00:00: mouth [place] 00 daily. Medical Branch Zinc 2021-03 Yes [id number] 30{tbl} Take 30 [facility] vers Gluconate 1-17 tablets by ity of 100 mg Tab 00:00: mouth 00 daily. Medical Branch semaglutide 2021-03 Yes [id number] Start: [facility] , weight 1-17 0.25mg SC ity of loss, 00:00: qWeek x 4 ([facility]) 00 Weeks; Medical 0.25 mg/0.5 then 0.5mg Br anch mL PnIj SC SC qWeek x injection 4 Weeks; then 1mg SC qWeek x 4 Weeks; then 1.7mg SC qWeek x 4 Weeks; then 2.4mg qWeek. semaglutide 2021-03 Yes [id number] Start: Univers , weight 1-17 0.25mg SC ity of loss, 00:00: qWeek x 4 ([facility]) 00 Weeks; Medical mg/0.5 mL then 0.5mg Bran ch PnIj SC SC qWeek x injection 4 Weeks; then 1mg SC qWeek x 4 Weeks; then 1.7mg SC qWeek x 4 Weeks; then 2.4mg qWeek. nystatin/ma 2021-03 Yes [id number] 5mL Take 5 mL [facility] alox/diphen 1-17 by mouth 4 it y of hydrAMINE/l 00:00: (four) [place] idocaine 2 00 times Medical % viscous daily as Branch 1:1:1:1 needed Susp (Sore suspension throat). Gargle and spit, do not swallow calcium 2021-03 Yes [id number] 500mg Take 1 [facility] vers carbonate 1-17 tablet by ity o f (CALCIUM 00:00: mouth in [place] 500) 500 mg 00 the Medical calcium morning. Branch (1,250 mg) tablet vitamin C 2021-03 Yes [id number] 1000mg Take 1 [facility] with anna 1-17 tablet by ity o f hips 00:00: mouth in [place] (VITAMIN C) 00 the Medical 1,000 mg morning. Branch tablet Magnesium 2021-03 Yes [id number] 30{tbl} Take 30 [facility] 250 mg Tab 1-17 tablets by ity of 00:00: mouth [place] 00 daily. Medical Branch Zinc 2021-03 Yes [id number] 30{tbl} Take 30 [facility] vers Gluconate 1-17 tablets by ity of 100 mg Tab 00:00: mouth 00 daily. Medical Branch semaglutide 2021-03 Yes [id number] Start: Univers , weight 1-17 0.25mg SC ity of loss, 00:00: qWeek x 4 ([facility] 00 Weeks; Medical 0.25 mg/0.5 then 0.5mg Br anch mL PnIj SC SC qWeek x injection 4 Weeks; then 1mg SC qWeek x 4 Weeks; then 1.7mg SC qWeek x 4 Weeks; then 2.4mg qWeek. semaglutide 2021-03 Yes [id number] Start: Univers , weight 1-17 0.25mg SC ity of loss, 00:00: qWeek x 4 ([facility] 00 Weeks; Medical mg/0.5 mL then 0.5mg Bran ch PnIj SC SC qWeek x injection 4 Weeks; then 1mg SC qWeek x 4 Weeks; then 1.7mg SC qWeek x 4 Weeks; then 2.4mg qWeek. nystatin/ma 2021-03 Yes [id number] 5mL Take 5 mL [facility] alox/diphen 1-17 by mouth 4 it y of hydrAMINE/l 00:00: (four) [place] idocaine 2 00 times Medical % viscous daily as Branch 1:1:1:1 needed Susp (Sore suspension throat). Gargle and spit, do not swallow calcium 2021-03 Yes [id number] 500mg Take 1 [facility] vers carbonate 1-17 tablet by ity o f (CALCIUM 00:00: mouth in [place] 500) 500 mg 00 the Medical calcium morning. Branch (1,250 mg) tablet vitamin C 2021-03 Yes [id number] 1000mg Take 1 [facility] with anna 1-17 tablet by ity o f hips 00:00: mouth in [place] (VITAMIN C) 00 the Medical 1,000 mg morning. Branch tablet Magnesium 2021-03 Yes [id number] 30{tbl} Take 30 [facility] 250 mg Tab 1-17 tablets by ity of 00:00: mouth [place] 00 daily. Medical Branch Zinc 2021-03 Yes [id number] 30{tbl} Take 30 [facility] vers Gluconate 1-17 tablets by ity of 100 mg Tab 00:00: mouth [place] 00 daily. Medical Branch semaglutide 2021-03 Yes [id number] Start: [facility] , weight 1-17 0.25mg SC ity of loss, 00:00: [facility] x [facility]; Medical 0.25 mg/0.5 then 0.5mg Br anch mL PnIj SC SC qWeek x injection 4 Weeks; then 1mg SC qWeek x 4 Weeks; then 1.7mg SC qWeek x 4 Weeks; then 2.4mg qWeek. semaglutide 2021-03 Yes [id number] Start: [facility] , weight 1-17 0.25mg SC ity of loss, 00:00: [facility] x [facility] We[facility]; Medical mg/0.5 mL then 0.5mg Bran ch PnIj SC SC qWeek x injection 4 Weeks; then 1mg SC qWeek x 4 Weeks; then 1.7mg SC qWeek x 4 Weeks; then 2.4mg qWeek. nystatin/ma 2021-03 Yes [id number] 5mL Take 5 mL [facility] alox/diphen 1-17 by mouth 4 it y of hydrAMINE/l 00:00: (four[place] idoc[place] 2 00 times Medical % viscous daily as Branch 1:1:1:1 needed Susp (Sore suspension throat). Gargle and spit, do not swallow calcium 2021-03 Yes [id number] 500mg Take 1 [facility] vers carbonate 1-17 tablet by ity o f (CALCIUM 00:00: mouth in [place] 500) 500 mg 00 the Medical calcium morning. Branch (1,250 mg) tablet vitamin C 2021-03 Yes [id number] 1000mg Take 1 [facility] with anna 1-17 tablet by ity o f hips 00:00: mouth in [place] (VITAMIN C) 00 the Medical 1,000 mg morning. Branch tablet Magnesium 2021-03 Yes [id number] 30{tbl} Take 30 [facility] 250 mg Tab 1-17 tablets by ity of 00:00: mouth [place] 00 daily. Medical Branch Zinc 2021-03 Yes [id number] 30{tbl} Take 30 [facility] vers Gluconate 1-17 tablets by ity of 100 mg Tab 00:00: mouth [place] 00 daily. Medical Branch semaglutide 2021-03 Yes [id number] Start: [facility] , weight 1-17 0.25mg SC ity of loss, 00:00: qWeek x 4 [place] ([facility]) 00 Weeks; Medical 0.25 mg/0.5 then 0.5mg Br anch mL PnIj SC SC qWeek x injection 4 Weeks; then 1mg SC qWeek x 4 Weeks; then 1.7mg SC qWeek x 4 Weeks; then 2.4mg qWeek. semaglutide 2021-03 Yes [id number] Start: [facility] , weight 1-17 0.25mg SC ity of loss, 00:00: qWeek x 4 [place] ([facility]) 1 00 Weeks; Medical mg/0.5 mL then 0.5mg Bran ch PnIj SC SC qWeek x injection 4 Weeks; then 1mg SC qWeek x 4 Weeks; then 1.7mg SC qWeek x 4 Weeks; then 2.4mg qWeek. nystatin/ma 2021-03 Yes [id number] 5mL Take 5 mL [facility] alox/diphen 1-17 by mouth 4 it y of hydrAMINE/l 00:00: (four[place] idocaine 2 00 times Medical % viscous daily as Branch 1:1:1:1 needed Susp (Sore suspension throat). Gargle and spit, do not swallow calcium 2021-03 Yes [id number] 500mg Take 1 [facility] vers carbonate 1-17 tablet by ity o f (CALCIUM 00:00: mouth in [place] 500) 500 mg 00 the Medical calcium morning. Branch (1,250 mg) tablet vitamin C 2021-03 Yes [id number] 1000mg Take 1 [facility] with anna 1-17 tablet by ity o f hips 00:00: mouth in [place] (VITAMIN C) 00 the Medical 1,000 mg morning. Branch tablet Magnesium 2021-03 Yes [id number] 30{tbl} Take 30 [facility] 250 mg Tab 1-17 tablets by ity of 00:00: mouth [place] 00 daily. Medical Branch Zinc 2021-03 Yes [id number] 30{tbl} Take 30 [facility] vers Gluconate 1-17 tablets by ity of 100 mg Tab 00:00: mouth [place] 00 daily. Medical Branch semaglutide 2021-03 Yes [id number] Start: [facility] , weight 1-17 0.25mg SC ity of loss, 00:00: qWeek x 4 [place] ([facility]) 00 Weeks; Medical 0.25 mg/0.5 then 0.5mg Br anch mL PnIj SC SC qWeek x injection 4 Weeks; then 1mg SC qWeek x 4 Weeks; then 1.7mg SC qWeek x 4 Weeks; then 2.4mg qWeek. semaglutide 2021-03 Yes [id number] Start: [facility] , weight 1-17 0.25mg SC ity of loss, 00:00: qWeek x 4 [place] ([facility]) 1 00 Weeks; Medical mg/0.5 mL then 0.5mg Bran ch PnIj SC SC qWeek x injection 4 Weeks; then 1mg SC qWeek x 4 Weeks; then 1.7mg SC qWeek x 4 Weeks; then 2.4mg qWeek. nystatin/ma 2021-03 Yes [id number] 5mL Take 5 mL [facility] alox/diphen 1-17 by mouth 4 it y of hydrAMINE/l 00:00: (four[place] idocaine 2 00 times Medical % viscous daily as Branch 1:1:1:1 needed Susp (Sore suspension throat). Gargle and spit, do not swallow calcium 2021-03 Yes [id number] 500mg Take 1 [facility] vers carbonate 1-17 tablet by ity o f (CALCIUM 00:00: mouth in [place] 500) 500 mg 00 the Medical calcium morning. Branch (1,250 mg) tablet vitamin C 2021-03 Yes [id number] 1000mg Take 1 [facility] with anna 1-17 tablet by ity o f hips 00:00: mouth in [place] (VITAMIN C) 00 the Medical 1,000 mg morning. Branch tablet Magnesium 2021-03 Yes [id number] 30{tbl} Take 30 [facility] 250 mg Tab 1-17 tablets by ity of 00:00: mouth [place] 00 daily. Medical Branch Zinc 2021-03 Yes [id number] 30{tbl} Take 30 [facility] vers Gluconate 1-17 tablets by ity of 100 mg Tab 00:00: mouth [place] 00 daily. Medical Branch semaglutide 2021-03 Yes [id number] Start: [facility] , weight 1-17 0.25mg SC ity of loss, 00:00: qWeek x 4 [place] ([facility] 00 Weeks; Medical 0.25 mg/0.5 then 0.5mg Br anch mL PnIj SC SC qWeek x injection 4 Weeks; then 1mg SC qWeek x 4 Weeks; then 1.7mg SC qWeek x 4 Weeks; then 2.4mg qWeek. semaglutide 2021-03 Yes [id number] Start: [facility] , weight 1-17 0.25mg SC ity of loss, 00:00: qWeek x 4 [place] ([facility]) 1 00 Weeks; Medical mg/0.5 mL then 0.5mg Bran ch PnIj SC SC qWeek x injection 4 Weeks; then 1mg SC qWeek x 4 Weeks; then 1.7mg SC qWeek x 4 Weeks; then 2.4mg qWeek. nystatin/ma 2021-03 Yes [id number] 5mL Take 5 mL [facility] alox/diphen 1-17 by mouth 4 it y of hydrAMINE/l 00:00: (four[place] idocaine 2 00 times Medical % viscous daily as Branch 1:1:1:1 needed Susp (Sore suspension throat). Gargle and spit, do not swallow calcium 2021-03 Yes [id number] 500mg Take 1 [facility] vers carbonate 1-17 tablet by ity o f (CALCIUM 00:00: mouth in [place] 500) 500 mg 00 the Medical calcium morning. Branch (1,250 mg) tablet vitamin C 2021-03 Yes [id number] 1000mg Take 1 [facility] with anna 1-17 tablet by ity o f hips 00:00: mouth in [place] (VITAMIN C) 00 the Medical 1,000 mg morning. Branch tablet Magnesium 2021-03 Yes [id number] 30{tbl} Take 30 [facility] 250 mg Tab 1-17 tablets by ity of 00:00: mouth [place] 00 daily. Medical Branch Zinc 2021-03 Yes [id number] 30{tbl} Take 30 [facility] vers Gluconate 1-17 tablets by ity of 100 mg Tab 00:00: mouth [place] 00 daily. Medical Branch semaglutide 2021-03 Yes [id number] Start: [facility] , weight 1-17 0.25mg SC ity of loss, 00:00: qWeek x 4 [place] ([facility]) 00 Weeks; Medical 0.25 mg/0.5 then 0.5mg Br anch mL PnIj SC SC qWeek x injection 4 Weeks; then 1mg SC qWeek x 4 Weeks; then 1.7mg SC qWeek x 4 Weeks; then 2.4mg qWeek. semaglutide 2021-03 Yes [id number] Start: [facility] , weight 1-17 0.25mg SC ity of loss, 00:00: qWeek x 4 () 1 00 Weeks; Medical mg/0.5 mL then 0.5mg Bran ch PnIj SC SC qWeek x injection 4 Weeks; then 1mg SC qWeek x 4 Weeks; then 1.7mg SC qWeek x 4 Weeks; then 2.4mg qWeek. nystatin/ma 2021-03 Yes [id number] 5mL Take 5 mL [facility] alox/diphen 1-17 by mouth 4 it y of hydrAMINE/l 00:00: (four[place] idocaine 2 00 times Medical % viscous daily as Branch 1:1:1:1 needed Susp (Sore suspension throat). Gargle and spit, do not swallow calcium 2021-03 Yes [id number] 500mg Take 1 [facility] vers carbonate 1-17 tablet by ity o f (CALCIUM 00:00: mouth in [place] 500) 500 mg 00 the Medical calcium morning. Branch (1,250 mg) tablet vitamin C 2021-03 Yes [id number] 1000mg Take 1 [facility] with anna 1-17 tablet by ity o f hips 00:00: mouth in [place] (VITAMIN C) 00 the Medical 1,000 mg morning. Branch tablet Magnesium 2021-03 Yes [id number] 30{tbl} Take 30 [facility] 250 mg Tab 1-17 tablets by ity of 00:00: mouth [place] 00 daily. Medical Branch Zinc 2021-03 Yes [id number] 30{tbl} Take 30 [facility] vers Gluconate 1-17 tablets by ity of 100 mg Tab 00:00: mouth [place] 00 daily. Medical Branch semaglutide 2021-03 Yes [id number] Start: [facility] , weight 1-17 0.25mg SC ity of loss, 00:00: qWeek x 4 [place] ([facility]) 00 Weeks; Medical 0.25 mg/0.5 then 0.5mg Br anch mL PnIj SC SC qWeek x injection 4 Weeks; then 1mg SC qWeek x 4 Weeks; then 1.7mg SC qWeek x 4 Weeks; then 2.4mg qWeek. nystatin/ma 2021-03 Yes [id number] 5mL Take 5 mL [facility] alox/diphen 1-17 by mouth 4 it y of hydrAMINE/l 00:00: (four) [place] id[place]aine 2 00 times Medical % viscous daily as Branch 1:1:1:1 needed Susp (Sore suspension throat). Gargle and spit, do not swallow calcium 2021-03 Yes [id number] 500mg Take 1 [facility] vers carbonate 1-17 tablet by ity o f (CALCIUM 00:00: mouth in [place] 500) 500 mg 00 the Medical calcium morning. Branch (1,250 mg) tablet vitamin C 2021-03 Yes [id number] 1000mg Take 1 [facility] with anna 1-17 tablet by ity o f hips 00:00: mouth in [place] (VITAMIN C) 00 the Medical 1,000 mg morning. Branch tablet Magnesium 2021-03 Yes [id number] 30{tbl} Take 30 [facility] 250 mg Tab 1-17 tablets by ity of 00:00: mouth [place] 00 daily. Medical Branch Zinc 2021-03 Yes [id number] 30{tbl} Take 30 [facility] vers Gluconate 1-17 tablets by ity of 100 mg Tab 00:00: mouth [place] 00 daily. Medical Branch semaglutide 2021-03 Yes [id number] Start: [facility] , weight 1-17 0.25mg SC ity of loss, 00:00: qWeek x 4 [place] ([facility]) 00 Weeks; Medical 0.25 mg/0.5 then 0.5mg Br anch mL PnIj SC SC qWeek x injection 4 Weeks; then 1mg SC qWeek x 4 Weeks; then 1.7mg SC qWeek x 4 Weeks; then 2.4mg qWeek. nystatin/ma 2021-03 Yes [id number] 5mL Take 5 mL [facility] alox/diphen 1-17 by mouth 4 it y of hydrAMINE/l 00:00: (four) [place] idocaine 2 00 times Medical % viscous daily as Branch 1:1:1:1 needed Susp (Sore suspension throat). Gargle and spit, do not swallow calcium 2021-03 Yes [id number] 500mg Take 1 [facility] vers carbonate 1-17 tablet by ity o f (CALCIUM 00:00: mouth in [place] 500) 500 mg 00 the Medical calcium morning. Branch (1,250 mg) tablet vitamin C 2021-03 Yes [id number] 1000mg Take 1 [facility] with anna 1-17 tablet by ity o f hips 00:00: mouth in [place] (VITAMIN C) 00 the Medical 1,000 mg morning. Branch tablet Magnesium 2021-03 Yes [id number] 30{tbl} Take 30 [facility] 250 mg Tab 1-17 tablets by ity of 00:00: mouth [place] 00 daily. Medical Branch Zinc 2021-03 Yes [id number] 30{tbl} Take 30 [facility] vers Gluconate 1-17 tablets by ity of 100 mg Tab 00:00: mouth [place] 00 daily. Medical Branch semaglutide 2021-03 Yes [id number] Start: [facility] , weight 1-17 0.25mg SC ity of loss, 00:00: qWeek x 4 [place] ([facility]) 00 Weeks; Medical 0.25 mg/0.5 then 0.5mg Br anch mL PnIj SC SC qWeek x injection 4 Weeks; then 1mg SC qWeek x 4 Weeks; then 1.7mg SC qWeek x 4 Weeks; then 2.4mg qWeek. nystatin/ma 2021-03 Yes [id number] 5mL Take 5 mL [facility] alox/diphen 1-17 by mouth 4 it y of hydrAMINE/l 00:00: (four[place] idocaine 2 00 times Medical % viscous daily as Branch 1:1:1:1 needed Susp (Sore suspension throat). Gargle and spit, do not swallow calcium 2021-03 Yes [id number] 500mg Take 1 [facility] vers carbonate 1-17 tablet by ity o f (CALCIUM 00:00: mouth in [place] 500) 500 mg 00 the Medical calcium morning. Branch (1,250 mg) tablet vitamin C 2021-03 Yes [id number] 1000mg Take 1 [facility] with anna 1-17 tablet by ity o f hips 00:00: mouth in [place] (VITAMIN C) 00 the Medical 1,000 mg morning. Branch tablet Magnesium 2021-03 Yes [id number] 30{tbl} Take 30 [facility] 250 mg Tab 1-17 tablets by ity of 00:00: mouth [place] 00 daily. Medical Branch Zinc 2021-03 Yes [id number] 30{tbl} Take 30 [facility] vers Gluconate 1-17 tablets by ity of 100 mg Tab 00:00: mouth [place] 00 daily. Medical Branch semaglutide 2021-03 Yes [id number] Start: [facility] , weight 1-17 0.25mg SC ity of loss, 00:00: qWeek x 4 [place] ([facility]) 00 Weeks; Medical 0.25 mg/0.5 then 0.5mg Br anch mL PnIj SC SC qWeek x injection 4 Weeks; then 1mg SC qWeek x 4 Weeks; then 1.7mg SC qWeek x 4 Weeks; then 2.4mg qWeek. nystatin/ma 2021-03 Yes [id number] 5mL Take 5 mL [facility] alox/diphen 1-17 by mouth 4 it y of hydrAMINE/l 00:00: (four) [place] idocaine 2 00 times Medical % viscous daily as Branch 1:1:1:1 needed Susp (Sore suspension throat). Gargle and spit, do not swallow calcium 2021-03 Yes [id number] 500mg Take 1 [facility] vers carbonate 1-17 tablet by ity o f (CALCIUM 00:00: mouth in [place] 500) 500 mg 00 the Medical calcium morning. Branch (1,250 mg) tablet vitamin C 2021-03 Yes [id number] 1000mg Take 1 [facility] with anna 1-17 tablet by ity o f hips 00:00: mouth in [place] (VITAMIN C) 00 the Medical 1,000 mg morning. Branch tablet Magnesium 2021-03 Yes [id number] 30{tbl} Take 30 [facility] 250 mg Tab 1-17 tablets by ity of 00:00: mouth [place] 00 daily. Medical Branch Zinc 2021-03 Yes [id number] 30{tbl} Take 30 [facility] vers Gluconate 1-17 tablets by ity of 100 mg Tab 00:00: mouth [place] 00 daily. Medical Branch semaglutide 2021-03 Yes [id number] Start: [facility] , weight 1-17 0.25mg SC ity of loss, 00:00: qWeek x 4 [place] ([facility]) 00 Weeks; Medical 0.25 mg/0.5 then 0.5mg Br anch mL PnIj SC SC qWeek x injection 4 Weeks; then 1mg SC qWeek x 4 Weeks; then 1.7mg SC qWeek x 4 Weeks; then 2.4mg qWeek. nystatin/ma 2021-03 Yes [id number] 5mL Take 5 mL [facility] alox/diphen 1-17 by mouth 4 it y of hydrAMINE/l 00:00: (four) [place] idocaine 2 00 times Medical % viscous daily as Branch 1:1:1:1 needed Susp (Sore suspension throat). Gargle and spit, do not swallow calcium 2021-03 Yes [id number] 500mg Take 1 [facility] vers carbonate 1-17 tablet by ity o f (CALCIUM 00:00: mouth in [place] 500) 500 mg 00 the Medical calcium morning. Branch (1,250 mg) tablet vitamin C 2021-03 Yes [id number] 1000mg Take 1 [facility] with anna 1-17 tablet by ity o f hips 00:00: mouth in [place] (VITAMIN C) 00 the Medical 1,000 mg morning. Branch tablet Magnesium 2021-03 Yes [id number] 30{tbl} Take 30 [facility] 250 mg Tab 1-17 tablets by ity of 00:00: mouth [place] 00 daily. Medical Branch Zinc 2021-03 Yes [id number] 30{tbl} Take 30 [facility] vers Gluconate 1-17 tablets by ity of 100 mg Tab 00:00: mouth [place] 00 daily. Medical Branch nystatin/ma 2021-03 Yes [id number] 5mL Take 5 mL [facility] alox/diphen 1-17 by mouth 4 it y of hydrAMINE/l 00:00: (four) [place] idocaine 2 00 times Medical % viscous daily as Branch 1:1:1:1 needed Susp (Sore suspension throat). Gargle and spit, do not swallow calcium 2021-03 Yes [id number] 500mg Take 1 [facility] vers carbonate 1-17 tablet by ity o f (CALCIUM 00:00: mouth in [place] 500) 500 mg 00 the Medical calcium morning. Branch (1,250 mg) tablet vitamin C 2021-03 Yes [id number] 1000mg Take 1 [facility] with anna 1-17 tablet by ity o f hips 00:00: mouth in [place] (VITAMIN C) 00 the Medical 1,000 mg morning. Branch tablet Magnesium 2021-03 Yes [id number] 30{tbl} Take 30 [facility] 250 mg Tab 1-17 tablets by ity of 00:00: mouth [place] 00 daily. Medical Branch Zinc 2021-03 Yes [id number] 30{tbl} Take 30 [facility] vers Gluconate 1-17 tablets by ity of 100 mg Tab 00:00: mouth [place] 00 daily. Medical Branch nystatin/ma 2021-03 Yes [id number] 5mL Take 5 mL [facility] alox/diphen 1-17 by mouth 4 it y of hydrAMINE/l 00:00: (four) [place] idocaine 2 00 times Medical % viscous daily as Branch 1:1:1:1 needed Susp (Sore suspension throat). Gargle and spit, do not swallow calcium 2021-03 Yes [id number] 500mg Take 1 [facility] vers carbonate 1-17 tablet by ity o f (CALCIUM 00:00: mouth in [place] 500) 500 mg 00 the Medical calcium morning. Branch (1,250 mg) tablet vitamin C 2021-03 Yes [id number] 1000mg Take 1 [facility] with anna 1-17 tablet by ity o f hips 00:00: mouth in [place] (VITAMIN C) 00 the Medical 1,000 mg morning. Branch tablet Magnesium 2021-03 Yes [id number] 30{tbl} Take 30 [facility] 250 mg Tab 1-17 tablets by ity of 00:00: mouth [place] 00 daily. Medical Branch Zinc 2021-03 Yes [id number] 30{tbl} Take 30 [facility] vers Gluconate 1-17 tablets by ity of 100 mg Tab 00:00: mouth [place] 00 daily. Medical Branch nystatin/ma 2021-03 Yes [id number] 5mL Take 5 mL [facility] alox/diphen 1-17 by mouth 4 it y of hydrAMINE/l 00:00: (four) [place] id[place]aine 2 00 times Medical % viscous daily as Branch 1:1:1:1 needed Susp (Sore suspension throat). Gargle and spit, do not swallow calcium 2021-03 Yes [id number] 500mg Take 1 [facility] vers carbonate 1-17 tablet by ity o f (CALCIUM 00:00: mouth in [place] 500) 500 mg 00 the Medical calcium morning. Branch (1,250 mg) tablet vitamin C 2021-03 Yes [id number] 1000mg Take 1 [facility] with anna 1-17 tablet by ity o f hips 00:00: mouth in [place] (VITAMIN C) 00 the Medical 1,000 mg morning. Branch tablet Magnesium 2021-03 Yes [id number] 30{tbl} Take 30 [facility] 250 mg Tab 1-17 tablets by ity of 00:00: mouth [place] 00 daily. Medical Branch Zinc 2021-03 Yes [id number] 30{tbl} Take 30 [facility] vers Gluconate 1-17 tablets by ity of 100 mg Tab 00:00: mouth [place] 00 daily. Medical Branch nystatin/ma 2021-03 Yes [id number] 5mL Take 5 mL [facility] alox/diphen 1-17 by mouth 4 it y of hydrAMINE/l 00:00: (four) [place] 2 00 times Medical % viscous daily as Branch 1:1:1:1 needed Susp (Sore suspension throat). Gargle and spit, do not swallow calcium 2021-03 Yes [id number] 500mg Take 1 [facility] vers carbonate 1-17 tablet by ity o f (CALCIUM 00:00: mouth in [place] 500) 500 mg 00 the Medical calcium morning. Branch (1,250 mg) tablet vitamin C 2021-03 Yes [id number] 1000mg Take 1 [facility] with anna 1-17 tablet by ity o f hips 00:00: mouth in [place] (VITAMIN C) 00 the Medical 1,000 mg morning. Branch tablet Magnesium 2021-03 Yes [id number] 30{tbl} Take 30 [facility] 250 mg Tab 1-17 tablets by ity of 00:00: mouth [place] 00 daily. Medical Branch Zinc 2021-03 Yes [id number] 30{tbl} Take 30 [facility] vers Gluconate 1-17 tablets by ity of 100 mg Tab 00:00: mouth [place] 00 daily. Medical Branch nystatin/ma 2021-03 Yes [id number] 5mL Take 5 mL [facility] alox/diphen 1-17 by mouth 4 it y of hydrAMINE/l 00:00: (four) [place] 2 00 times Medical % viscous daily as Branch 1:1:1:1 needed Susp (Sore suspension throat). Gargle and spit, do not swallow calcium 2021-03 Yes [id number] 500mg Take 1 [facility] vers carbonate 1-17 tablet by ity o f (CALCIUM 00:00: mouth in [place] 500) 500 mg 00 the Medical calcium morning. Branch (1,250 mg) tablet vitamin C 2021-03 Yes [id number] 1000mg Take 1 [facility] with anna 1-17 tablet by ity o f hips 00:00: mouth in [place] (VITAMIN C) 00 the Medical 1,000 mg morning. Branch tablet Magnesium 2021-03 Yes [id number] 30{tbl} Take 30 [facility] 250 mg Tab 1-17 tablets by ity of 00:00: mouth [place] 00 daily. Medical Branch Zinc 2021-03 Yes [id number] 30{tbl} Take 30 [facility] vers Gluconate 1-17 tablets by ity of 100 mg Tab 00:00: mouth [place] 00 daily. Medical Branch nystatin/ma 2021-03 Yes [id number] 5mL Take 5 mL [facility] alox/diphen 1-17 by mouth 4 it y of hydrAMINE/l 00:00: (four) [place] 2 00 times Medical % viscous daily as Branch 1:1:1:1 needed Susp (Sore suspension throat). Gargle and spit, do not swallow calcium 2021-03 Yes [id number] 500mg Take 1 [facility] vers carbonate 1-17 tablet by ity o f (CALCIUM 00:00: mouth in [place] 500) 500 mg 00 the Medical calcium morning. Branch (1,250 mg) tablet vitamin C 2021-03 Yes [id number] 1000mg Take 1 [facility] with anna 1-17 tablet by ity o f hips 00:00: mouth in [place] (VITAMIN C) 00 the Medical 1,000 mg morning. Branch tablet Magnesium 2021-03 Yes [id number] 30{tbl} Take 30 [facility] 250 mg Tab 1-17 tablets by ity of 00:00: mouth [place] 00 daily. Medical Branch Zinc 2021-03 Yes [id number] 30{tbl} Take 30 [facility] vers Gluconate 1-17 tablets by ity of 100 mg Tab 00:00: mouth [place] 00 daily. Medical Branch nystatin/ma 2021-03 Yes [id number] 5mL Take 5 mL [facility] alox/diphen 1-17 by mouth 4 it y of hydrAMINE/l 00:00: (four) [place] 2 00 times Medical % viscous daily as Branch 1:1:1:1 needed Susp (Sore suspension throat). Gargle and spit, do not swallow calcium 2021-03 Yes [id number] 500mg Take 1 [facility] vers carbonate 1-17 tablet by ity o f (CALCIUM 00:00: mouth in [place] 500) 500 mg 00 the Medical calcium morning. Branch (1,250 mg) tablet vitamin C 2021-03 Yes [id number] 1000mg Take 1 [facility] with anna 1-17 tablet by ity o f hips 00:00: mouth in [place] (VITAMIN C) 00 the Medical 1,000 mg morning. Branch tablet Magnesium 2021-03 Yes [id number] 30{tbl} Take 30 [facility] 250 mg Tab 1-17 tablets by ity of 00:00: mouth [place] 00 daily. Medical Branch Zinc 2021-03 Yes [id number] 30{tbl} Take 30 [facility] vers Gluconate 1-17 tablets by ity of 100 mg Tab 00:00: mouth [place] 00 daily. Medical Branch nystatin/ma 2021-03 Yes [id number] 5mL Take 5 mL [facility] alox/diphen 1-17 by mouth 4 it y of hydrAMINE/l 00:00: (four) [place] 2 00 times Medical % viscous daily as Branch 1:1:1:1 needed Susp (Sore suspension throat). Gargle and spit, do not swallow calcium 2021-03 Yes [id number] 500mg Take 1 [facility] vers carbonate 1-17 tablet by ity o f (CALCIUM 00:00: mouth in [place] 500) 500 mg 00 the Medical calcium morning. Branch (1,250 mg) tablet vitamin C 2021-03 Yes [id number] 1000mg Take 1 [facility] with anna 1-17 tablet by ity o f hips 00:00: mouth in [place] (VITAMIN C) 00 the Medical 1,000 mg morning. Branch tablet Magnesium 2021-03 Yes [id number] 30{tbl} Take 30 [facility] 250 mg Tab 1-17 tablets by ity of 00:00: mouth [place] 00 daily. Medical Branch Zinc 2021-03 Yes [id number] 30{tbl} Take 30 [facility] vers Gluconate 1-17 tablets by ity of 100 mg Tab 00:00: mouth [place] 00 daily. Medical Branch nystatin/ma 2021-03 Yes [id number] 5mL Take 5 mL [facility] alox/diphen 1-17 by mouth 4 it y of hydrAMINE/l 00:00: (four) [place] id[place] 2 00 times Medical % viscous daily as Branch 1:1:1:1 needed Susp (Sore suspension throat). Gargle and spit, do not swallow calcium 2021-03 Yes [id number] 500mg Take 1 [facility] vers carbonate 1-17 tablet by ity o f (CALCIUM 00:00: mouth in [place] 500) 500 mg 00 the Medical calcium morning. Branch (1,250 mg) tablet vitamin C 2021-03 Yes [id number] 1000mg Take 1 [facility] with anna 1-17 tablet by ity o f hips 00:00: mouth in [place] (VITAMIN C) 00 the Medical 1,000 mg morning. Branch tablet Magnesium 2021-03 Yes [id number] 30{tbl} Take 30 [facility] 250 mg Tab 1-17 tablets by ity of 00:00: mouth [place] 00 daily. Medical Branch Zinc 2021-03 Yes [id number] 30{tbl} Take 30 [facility] vers Gluconate 1-17 tablets by ity of 100 mg Tab 00:00: mouth [place] 00 daily. Medical Branch nystatin/ma 2021-03 Yes [id number] 5mL Take 5 mL [facility] alox/diphen 1-17 by mouth 4 it y of hydrAMINE/l 00:00: (four) [place] 2 00 times Medical % viscous daily as Branch 1:1:1:1 needed Susp (Sore suspension throat). Gargle and spit, do not swallow calcium 2021-03 Yes [id number] 500mg Take 1 [facility] vers carbonate 1-17 tablet by ity o f (CALCIUM 00:00: mouth in [place] 500) 500 mg 00 the Medical calcium morning. Branch (1,250 mg) tablet vitamin C 2021-03 Yes [id number] 1000mg Take 1 [facility] with anna 1-17 tablet by ity o f hips 00:00: mouth in [place] (VITAMIN C) 00 the Medical 1,000 mg morning. Branch tablet Magnesium 2021-03 Yes [id number] 30{tbl} Take 30 [facility] 250 mg Tab 1-17 tablets by ity of 00:00: mouth [place] 00 daily. Medical Branch Zinc 2021-03 Yes [id number] 30{tbl} Take 30 [facility] vers Gluconate 1-17 tablets by ity of 100 mg Tab 00:00: mouth [place] 00 daily. Medical Branch nystatin/ma 2021-03 Yes [id number] 5mL Take 5 mL [facility] alox/diphen 1-17 by mouth 4 it y of hydrAMINE/l 00:00: (four) [place] idocaine 2 00 times Medical % viscous daily as Branch 1:1:1:1 needed Susp (Sore suspension throat). Gargle and spit, do not swallow calcium 2021-03 Yes [id number] 500mg Take 1 [facility] vers carbonate 1-17 tablet by ity o f (CALCIUM 00:00: mouth in [place] 500) 500 mg 00 the Medical calcium morning. Branch (1,250 mg) tablet vitamin C 2021-03 Yes [id number] 1000mg Take 1 [facility] with anna 1-17 tablet by ity o f hips 00:00: mouth in [place] (VITAMIN C) 00 the Medical 1,000 mg morning. Branch tablet Magnesium 2021-03 Yes [id number] 30{tbl} Take 30 [facility] 250 mg Tab 1-17 tablets by ity of 00:00: mouth [place] 00 daily. Medical Branch Zinc 2021-03 Yes [id number] 30{tbl} Take 30 [facility] vers Gluconate 1-17 tablets by ity of 100 mg Tab 00:00: mouth [place] 00 daily. Medical Branch nystatin/ma 2021-03 Yes [id number] 5mL Take 5 mL [facility] alox/diphen 1-17 by mouth 4 it y of hydrAMINE/l 00:00: (four) [place]oc[place] 2 00 times Medical % viscous daily as Branch 1:1:1:1 needed Susp (Sore suspension throat). Gargle and spit, do not swallow calcium 2021-03 Yes [id number] 500mg Take 1 [facility] vers carbonate 1-17 tablet by ity o f (CALCIUM 00:00: mouth in [place] 500) 500 mg 00 the Medical calcium morning. Branch (1,250 mg) tablet vitamin C 2021-03 Yes [id number] 1000mg Take 1 [facility] with anna 1-17 tablet by ity o f hips 00:00: mouth in [place] (VITAMIN C) 00 the Medical 1,000 mg morning. Branch tablet Magnesium 2021-03 Yes [id number] 30{tbl} Take 30 [facility] 250 mg Tab 1-17 tablets by ity of 00:00: mouth [place] 00 daily. Medical Branch Zinc 2021-03 Yes [id number] 30{tbl} Take 30 [facility] vers Gluconate 1-17 tablets by ity of 100 mg Tab 00:00: mouth [place] 00 daily. Medical Branch nystatin/ma 2021-03 Yes [id number] 5mL Take 5 mL [facility] alox/diphen 1-17 by mouth 4 it y of hydrAMINE/l 00:00: (four[place] idocaine 2 00 times Medical % viscous daily as Branch 1:1:1:1 needed Susp (Sore suspension throat). Gargle and spit, do not swallow calcium 2021-03 Yes [id number] 500mg Take 1 [facility] vers carbonate 1-17 tablet by ity o f (CALCIUM 00:00: mouth in [place] 500) 500 mg 00 the Medical calcium morning. Branch (1,250 mg) tablet vitamin C 2021-03 Yes [id number] 1000mg Take 1 [facility] with anna 1-17 tablet by ity o f hips 00:00: mouth in [place] (VITAMIN C) 00 the Medical 1,000 mg morning. Branch tablet Magnesium 2021-03 Yes [id number] 30{tbl} Take 30 [facility] 250 mg Tab 1-17 tablets by ity of 00:00: mouth [place] 00 daily. Medical Branch Zinc 2021-03 Yes [id number] 30{tbl} Take 30 [facility] vers Gluconate 1-17 tablets by ity of 100 mg Tab 00:00: mouth [place] 00 daily. Medical Branch nystatin/ma 2021-03 Yes [id number] 5mL Take 5 mL [facility] alox/diphen 1-17 by mouth 4 it y of hydrAMINE/l 00:00: (four[place] idocaine 2 00 times Medical % viscous daily as Branch 1:1:1:1 needed Susp (Sore suspension throat). Gargle and spit, do not swallow calcium 2021-03 Yes [id number] 500mg Take 1 [facility] vers carbonate 1-17 tablet by ity o f (CALCIUM 00:00: mouth in [place] 500) 500 mg 00 the Medical calcium morning. Branch (1,250 mg) tablet vitamin C 2021-03 Yes [id number] 1000mg Take 1 [facility] with anna 1-17 tablet by ity o f hips 00:00: mouth in [place] (VITAMIN C) 00 the Medical 1,000 mg morning. Branch tablet Magnesium 2021-03 Yes [id number] 30{tbl} Take 30 [facility] 250 mg Tab 1-17 tablets by ity of 00:00: mouth [place] 00 daily. Medical Branch Zinc 2021-03 Yes [id number] 30{tbl} Take 30 [facility] vers Gluconate 1-17 tablets by ity of 100 mg Tab 00:00: mouth [place] 00 daily. Medical Branch nystatin/ma 2021-03 Yes [id number] 5mL Take 5 mL [facility] alox/diphen 1-17 by mouth 4 it y of hydrAMINE/l 00:00: (four[place] idocaine 2 00 times Medical % viscous daily as Branch 1:1:1:1 needed Susp (Sore suspension throat). Gargle and spit, do not swallow calcium 2021-03 Yes [id number] 500mg Take 1 [facility] vers carbonate 1-17 tablet by ity o f (CALCIUM 00:00: mouth in [place] 500) 500 mg 00 the Medical calcium morning. Branch (1,250 mg) tablet vitamin C 2021-03 Yes [id number] 1000mg Take 1 [facility] with anna 1-17 tablet by ity o f hips 00:00: mouth in [place] (VITAMIN C) 00 the Medical 1,000 mg morning. Branch tablet Magnesium 2021-03 Yes [id number] 30{tbl} Take 30 [facility] 250 mg Tab 1-17 tablets by ity of 00:00: mouth [place] 00 daily. Medical Branch Zinc 2021-03 Yes [id number] 30{tbl} Take 30 [facility] vers Gluconate 1-17 tablets by ity of 100 mg Tab 00:00: mouth [place] 00 daily. Medical Branch nystatin/ma 2021-03 Yes [id number] 5mL Take 5 mL [facility] alox/diphen 1-17 by mouth 4 it y of hydrAMINE/l 00:00: (four[place] idocaine 2 00 times Medical % viscous daily as Branch 1:1:1:1 needed Susp (Sore suspension throat). Gargle and spit, do not swallow calcium 2021-03 Yes [id number] 500mg Take 1 [facility] vers carbonate 1-17 tablet by ity o f (CALCIUM 00:00: mouth in [place] 500) 500 mg 00 the Medical calcium morning. Branch (1,250 mg) tablet vitamin C 2021-03 Yes [id number] 1000mg Take 1 [facility] with anna 1-17 tablet by ity o f hips 00:00: mouth in [place] (VITAMIN C) 00 the Medical 1,000 mg morning. Branch tablet Magnesium 2021-03 Yes [id number] 30{tbl} Take 30 [facility] 250 mg Tab 1-17 tablets by ity of 00:00: mouth [place] 00 daily. Medical Branch Zinc 2021-03 Yes [id number] 30{tbl} Take 30 [facility] vers Gluconate 1-17 tablets by ity of 100 mg Tab 00:00: mouth [place] 00 daily. Medical Branch nystatin/ma 2021-03 Yes [id number] 5mL Take 5 mL [facility] alox/diphen 1-17 by mouth 4 it y of hydrAMINE/l 00:00: (four) [place] idocaine 2 00 times Medical % viscous daily as Branch 1:1:1:1 needed Susp (Sore suspension throat). Gargle and spit, do not swallow calcium 2021-03 Yes [id number] 500mg Take 1 [facility] vers carbonate 1-17 tablet by ity o f (CALCIUM 00:00: mouth in [place] 500) 500 mg 00 the Medical calcium morning. Branch (1,250 mg) tablet vitamin C 2021-03 Yes [id number] 1000mg Take 1 [facility] with anna 1-17 tablet by ity o f hips 00:00: mouth in [place] (VITAMIN C) 00 the Medical 1,000 mg morning. Branch tablet Magnesium 2021-03 Yes [id number] 30{tbl} Take 30 [facility] 250 mg Tab 1-17 tablets by ity of 00:00: mouth [place] 00 daily. Medical Branch Zinc 2021-03 Yes [id number] 30{tbl} Take 30 [facility] vers Gluconate 1-17 tablets by ity of 100 mg Tab 00:00: mouth [place] 00 daily. Medical Branch nystatin/ma 2021-03 Yes [id number] 5mL Take 5 mL [facility] alox/diphen 1-17 by mouth 4 it y of hydrAMINE/l 00:00: (four) [place] idocaine 2 00 times Medical % viscous daily as Branch 1:1:1:1 needed Susp (Sore suspension throat). Gargle and spit, do not swallow calcium 2021-03 Yes [id number] 500mg Take 1 [facility] vers carbonate 1-17 tablet by ity o f (CALCIUM 00:00: mouth in [place] 500) 500 mg 00 the Medical calcium morning. Branch (1,250 mg) tablet vitamin C 2021-03 Yes [id number] 1000mg Take 1 [facility] with anna 1-17 tablet by ity o f hips 00:00: mouth in [place] (VITAMIN C) 00 the Medical 1,000 mg morning. Branch tablet Magnesium 2021-03 Yes [id number] 30{tbl} Take 30 [facility] 250 mg Tab 1-17 tablets by ity of 00:00: mouth [place] 00 daily. Medical Branch Zinc 2021-03 Yes [id number] 30{tbl} Take 30 [facility] vers Gluconate 1-17 tablets by ity of 100 mg Tab 00:00: mouth [place] 00 daily. Medical Branch nystatin/ma 2021-03 Yes [id number] 5mL Take 5 mL [facility] alox/diphen 1-17 by mouth 4 it y of hydrAMINE/l 00:00: (four) [place] idocaine 2 00 times Medical % viscous daily as Branch 1:1:1:1 needed Susp (Sore suspension throat). Gargle and spit, do not swallow calcium 2021-03 Yes [id number] 500mg Take 1 [facility] vers carbonate 1-17 tablet by ity o f (CALCIUM 00:00: mouth in [place] 500) 500 mg 00 the Medical calcium morning. Branch (1,250 mg) tablet vitamin C 2021-03 Yes [id number] 1000mg Take 1 [facility] with anna 1-17 tablet by ity o f hips 00:00: mouth in [place] (VITAMIN C) 00 the Medical 1,000 mg morning. Branch tablet Magnesium 2021-03 Yes [id number] 30{tbl} Take 30 [facility] 250 mg Tab 1-17 tablets by ity of 00:00: mouth [place] 00 daily. Medical Branch Zinc 2021-03 Yes [id number] 30{tbl} Take 30 [facility] vers Gluconate 1-17 tablets by ity of 100 mg Tab 00:00: mouth [place] 00 daily. Medical Branch semaglutide 2021-033- No [id number] Start: [facility] , weight 1-17 05-24 0.25mg SC ity o f loss, 00:00: 00:00 qWeek x 4 [place] (WEGOVY) 00 :00 Weeks; Medical 0.25 mg/0.5 then 0.5mg Br anch mL PnIj SC SC qWeek x injection 4 Weeks; then 1mg SC qWeek x 4 Weeks; then 1.7mg SC qWeek x 4 Weeks; then 2.4mg qWeek. semaglutide 2021-03- No [id number] Start: Univers , weight 1-17 05-24 0.25mg SC ity o f loss, 00:00: 00:00 qWeek x 4 [place] () 00 :00 Weeks; Medical 0.25 mg/0.5 then 0.5mg Br anch mL PnIj SC SC qWeek x injection 4 Weeks; then 1mg SC qWeek x 4 Weeks; then 1.7mg SC qWeek x 4 Weeks; then 2.4mg qWeek. semaglutide 2021-03- No [id number] Start: [facility] , weight 117 03-19 0.25mg [place] ity o f loss, 00:00: 00:00 qWeek x 4 () 00 :00 Weeks; Medical mg/0.5 mL then 0.5mg Bran ch PnIj SC SC qWeek x injection 4 Weeks; then 1mg SC qWeek x 4 Weeks; then 1.7mg SC qWeek x 4 Weeks; then 2.4mg qWeek. lisdexamfet 2021-03- No [id number] 30mg Take 1 [facility] amine 1-17 12-20 capsule by ity of (VYVANSE) 00:00: 00:00 mouth [place] 30 mg 00 :00 every Medical capsule morning. [place] lisdexamfet 2021-03- No [id number] 30mg Take 1 [facility] amine 1-17 12-20 capsule by ity of (VYVANSE) 00:00: 00:00 mouth [place] 30 mg 00 :00 every Medical capsule morning. [place] lisdexamfet 2021-03 Yes [id number] 30mg Take 1 [facility] amine 0-14 capsule by ity of (VYVANSE) 00:00: mouth [place] 30 mg 00 every Medical capsule morning. [place] lisdexamfet 2021-03 Yes [id number] 30mg Take 1 [facility] amine 0-14 capsule by ity of (VYVANSE) 00:00: mouth [place] 30 mg 00 every Medical capsule morning. [place] lisdexamfet 2021-03 Yes [id number] 30mg Take 1 [facility] amine 0-14 capsule by ity of (VYVANSE) 00:00: mouth [place] 30 mg 00 every Medical capsule morning. Branch lisdexamfet 2021-03- No [id number] 30mg Take 1 [facility] amine 0-14 11-17 capsule by ity of (VYVANSE) 00:00: 00:00 mouth [place] 30 mg 00 :00 every Medical capsule morning. Branch lisdexamfet 2021-03- No [id number] 30mg Take 1 [facility] amine 0-14 11-17 capsule by ity of (VYVANSE) 00:00: 00:00 mouth [place] 30 mg 00 :00 every Medical capsule morning. Branch Nitrofurant 2021-03- No [id number] 100mg Take 1 [facility] oin&Nit. 0-09 10-15 capsule by ity of Macrocryst 00:00: 04:59 mouth in [place] (MACROBID) 00 :00 the Medical 100 mg morning Branch capsule and 1 capsule in the evening. Do all this for 5 days. Nitrofurant 2021-03- No [id number] 100mg Take 1 [facility] oin&Nit. 0-09 10-15 capsule by ity of Macrocryst 00:00: 04:59 mouth in [place] (MACROBID) 00 :00 the Medical 100 mg morning Branch capsule and 1 capsule in the evening. Do all this for 5 days. lisdexamfet Yes [id number] 30mg Take 1 [facility] amine 8-17 capsule by ity of (VYVANSE) 00:00: mouth [place] 30 mg 00 every Medical capsule morning. Branch lisinopriL 2021-0 Yes [id number] 10mg Take 1 U nivers 10 mg 8-17 tablet by ity of tablet 00:00: mouth in [place] 00 the Medical morning. Branch hydroCHLORO 2021-0 Yes [id number] 12.5mg Take 1 [facility] thiazide 8-17 capsule by ity o f 12.5 mg 00:00: mouth in [place] capsule 00 the Medical morning. Branch lisdexamfet 2021-0 Yes [id number] 30mg Take 1 [facility] amine 8-17 capsule by ity of (VYVANSE) 00:00: mouth [place] 30 mg 00 every Medical capsule morning. Branch lisinopriL 2021-0 Yes [id number] 10mg Take 1 U nivers 10 mg 8-17 tablet by ity of tablet 00:00: mouth in [place] 00 the Medical morning. Branch hydroCHLORO 2022-0 Yes [id number] 12.5mg Take 1 [facility] thiazide 8-17 capsule by ity o f 12.5 mg 00:00: mouth in [place] capsule 00 the Medical morning. Branch lisdexamfet 2022-0 Yes [id number] 30mg Take 1 [facility] amine 8-17 capsule by ity of (VYVANSE) 00:00: mouth [place] 30 mg 00 every Medical capsule morning. Branch lisinopriL 2022-0 Yes [id number] 10mg Take 1 U nivers 10 mg 8-17 tablet by ity of tablet 00:00: mouth in [place] 00 the Medical morning. Branch hydroCHLORO 2022-0 Yes [id number] 12.5mg Take 1 [facility] thiazide 8-17 capsule by ity o f 12.5 mg 00:00: mouth in [place] capsule 00 the Medical morning. Branch lisdexamfet 2-0 Yes [id number] 30mg Take 1 [facility] amine 8-17 capsule by ity of (VYVANSE) 00:00: mouth [place] 30 mg 00 every Medical capsule morning. Branch lisinopriL 2-0 Yes [id number] 10mg Take 1 U nivers 10 mg 8-17 tablet by ity of tablet 00:00: mouth in [place] 00 the Medical morning. Branch hydroCHLORO 2022-0 Yes [id number] 12.5mg Take 1 [facility] thiazide 8-17 capsule by ity o f 12.5 mg 00:00: mouth in [place] capsule 00 the Medical morning. Branch lisinopriL 2022-0 Yes [id number] 10mg Take 1 U nivers 10 mg 8-17 tablet by ity of tablet 00:00: mouth in [place] 00 the Medical morning. Branch hydroCHLORO 2022-0 Yes [id number] 12.5mg Take 1 [facility] thiazide 8-17 capsule by ity o f 12.5 mg 00:00: mouth in [place] capsule 00 the Medical morning. Branch lisinopriL 2022-0 Yes [id number] 10mg Take 1 U nivers 10 mg 8-17 tablet by ity of tablet 00:00: mouth in [place] 00 the Medical morning. Branch hydroCHLORO 2022-0 Yes [id number] 12.5mg Take 1 [facility] thiazide 8-17 capsule by ity o f 12.5 mg 00:00: mouth in [place] capsule 00 the Medical morning. Branch lisinopriL 2022-0 Yes [id number] 10mg Take 1 U nivers 10 mg 8-17 tablet by ity of tablet 00:00: mouth in [place] 00 the Medical morning. Branch hydroCHLORO 2022-0 Yes [id number] 12.5mg Take 1 [facility] thiazide 8-17 capsule by ity o f 12.5 mg 00:00: mouth in [place] capsule 00 the Medical morning. Branch lisinopriL 2022-0 Yes [id number] 10mg Take 1 U nivers 10 mg 8-17 tablet by ity of tablet 00:00: mouth in [place] 00 the Medical morning. Branch hydroCHLORO 2022-0 Yes [id number] 12.5mg Take 1 [facility] thiazide 8-17 capsule by ity o f 12.5 mg 00:00: mouth in [place] capsule 00 the Medical morning. Branch lisinopriL 2022-0 Yes [id number] 10mg Take 1 U nivers 10 mg 8-17 tablet by ity of tablet 00:00: mouth in [place] the Medical morning. Branch hydroCHLORO 2022-0 Yes [id number] 12.5mg Take 1 [facility] thiazide 8-17 capsule by ity o f 12.5 mg 00:00: mouth in [place] capsule 00 the Medical morning. Branch lisinopriL 2022-0 Yes [id number] 10mg Take 1 U nivers 10 mg 8-17 tablet by ity of tablet 00:00: mouth in [place] 00 the Medical morning. Branch hydroCHLORO 2022-0 Yes [id number] 12.5mg Take 1 [facility] thiazide 8-17 capsule by ity o f 12.5 mg 00:00: mouth in [place] capsule 00 the Medical morning. Branch lisinopriL 2022-0 Yes [id number] 10mg Take 1 U nivers 10 mg 8-17 tablet by ity of tablet 00:00: mouth in [place] 00 the Medical morning. Branch hydroCHLORO 2022-0 Yes [id number] 12.5mg Take 1 [facility] thiazide 8-17 capsule by ity o f 12.5 mg 00:00: mouth in [place] capsule 00 the Medical morning. Branch hydroCHLORO 2022-0 Yes [id number] 12.5mg Take 1 [facility] thiazide 8-17 capsule by ity o f 12.5 mg 00:00: mouth in [place] capsule 00 the Medical morning. Branch hydroCHLORO 2022-0 Yes [id number] 12.5mg Take 1 [facility] thiazide 8-17 capsule by ity o f 12.5 mg 00:00: mouth in [place] capsule 00 the Medical morning. Branch hydroCHLORO 2022-0 Yes [id number] 12.5mg Take 1 [facility] thiazide 8-17 capsule by ity o f 12.5 mg 00:00: mouth in [place] capsule 00 the Medical morning. Branch hydroCHLORO 2022-0 Yes [id number] 12.5mg Take 1 [facility] thiazide 8-17 capsule by ity o f 12.5 mg 00:00: mouth in [place] capsule 00 the Medical morning. Branch hydroCHLORO 2022-0 Yes [id number] 12.5mg Take 1 [facility] thiazide 8-17 capsule by ity o f 12.5 mg 00:00: mouth in [place] capsule 00 the Medical morning. Branch hydroCHLORO 2022-0 Yes [id number] 12.5mg Take 1 [facility] thiazide 8-17 capsule by ity o f 12.5 mg 00:00: mouth in [place] capsule 00 the Medical morning. Branch hydroCHLORO 2022-0 Yes [id number] 12.5mg Take 1 [facility] thiazide 8-17 capsule by ity o f 12.5 mg 00:00: mouth in [place] capsule 00 the Medical morning. Branch hydroCHLORO 2022-0 Yes [id number] 12.5mg Take 1 [facility] thiazide 8-17 capsule by ity o f 12.5 mg 00:00: mouth in [place] capsule 00 the Medical morning. Branch hydroCHLORO 2022-0 Yes [id number] 12.5mg Take 1 [facility] thiazide 8-17 capsule by ity o f 12.5 mg 00:00: mouth in [place] capsule 00 the Medical morning. Branch hydroCHLORO 2022-0 Yes [id number] 12.5mg Take 1 [facility] thiazide 8-17 capsule by ity o f 12.5 mg 00:00: mouth in [place] capsule 00 the Medical morning. Branch hydroCHLORO 2022-0 Yes [id number] 12.5mg Take 1 [facility] thiazide 8-17 capsule by ity o f 12.5 mg 00:00: mouth in [place] capsule 00 the Medical morning. Branch hydroCHLORO 2022-0 Yes [id number] 12.5mg Take 1 [facility] thiazide 8-17 capsule by ity o f 12.5 mg 00:00: mouth in [place] capsule 00 the Medical morning. Branch hydroCHLORO 2022-0 Yes [id number] 12.5mg Take 1 [facility] thiazide 8-17 capsule by ity o f 12.5 mg 00:00: mouth in [place] capsule 00 the Medical morning. Branch hydroCHLORO 2-0 Yes [id number] 12.5mg Take 1 [facility] thiazide 8-17 capsule by ity o f 12.5 mg 00:00: mouth in [place] capsule 00 the Medical morning. Branch hydroCHLORO 2-0 Yes [id number] 12.5mg Take 1 [facility] thiazide 8-17 capsule by ity o f 12.5 mg 00:00: mouth in [place] capsule 00 the Medical morning. Branch hydroCHLORO 2-0 Yes [id number] 12.5mg Take 1 [facility] thiazide 8-17 capsule by ity o f 12.5 mg 00:00: mouth in [place] capsule 00 the Medical morning. Branch hydroCHLORO 2-0 Yes [id number] 12.5mg Take 1 [facility] thiazide 8-17 capsule by ity o f 12.5 mg 00:00: mouth in [place] capsule 00 the Medical morning. Branch hydroCHLORO 2021-0 2022- No [id number] 12.5mg Take 1 [facility] thiazide 8-17 05-24 capsule by ity of 12.5 mg 00:00: 00:00 mouth in [place] capsule 00 :00 the Medical morning. Branch hydroCHLORO 2021-0 3- No [id number] 12.5mg Take 1 [facility] thiazide 8-17 05-24 capsule by ity of 12.5 mg 00:00: 00:00 mouth in [place] capsule 00 :00 the Medical morning. Branch lisinopriL 2021-0 2021- No [id number] 10mg Take 1 [facility] 10 mg 8-17 12-20 tablet by ity of tablet 00:00: 00:00 mouth in [place] 00 :00 the Medical morning. Branch lisinopriL 2021-0 2021- No [id number] 10mg Take 1 [facility] 10 mg 8-17 12-20 tablet by ity of tablet 00:00: 00:00 mouth in [place] 00 :00 the Medical morning. [place] lisdexamfet 2021-0 2021- No [id number] 30mg Take 1 [facility] amine 8-17 10-12 capsule by ity of (VYVANSE) 00:00: 00:00 mouth [place] 30 mg 00 :00 every Medical capsule morning. Branch lisdexamfet 2021- No [id number] 30mg Take 1 [facility] amine 4-22 08-17 capsule by ity of (VYVANSE) 00:00: 00:00 mouth [place] 30 mg 00 :00 every Medical capsule morning. Branch lisdexamfet 2021- No [id number] 30mg Take 1 [facility] amine 4-22 08-17 capsule by ity of (VYVANSE) 00:00: 00:00 mouth [place] 30 mg 00 :00 every Medical capsule morning. Branch melatonin 2020-03 Yes [id number] 1{tbl} Take 1 [facility] mg Chew 2-23 tablet by ity of 00:00: mouth at [place] 00 bedtime as Medical needed for Branch Insomnia. melatonin 2020-03 Yes [id number] 1{tbl} Take 1 [facility] mg Chew 2-23 tablet by ity of 00:00: mouth at [place] 00 bedtime as Medical needed for Branch Insomnia. melatonin 2020-03 Yes [id number] 1{tbl} Take 1 [facility] mg Chew 2-23 tablet by ity of 00:00: mouth at [place] [address] bedtime as Medical needed for Branch Insomnia. melatonin 2020-03 Yes [id number] 1{tbl} Take 1 [facility] mg Chew 2-23 tablet by ity of 00:00: mouth at [place] 00 bedtime as Medical needed for Branch Insomnia. melatonin 2020-03 Yes [id number] 1{tbl} Take 1 [facility] mg Chew 2-23 tablet by ity of 00:00: mouth at [place] 00 bedtime as Medical needed for Branch Insomnia. melatonin 2020-03 Yes [id number] 1{tbl} Take 1 [facility] mg Chew 2-23 tablet by ity of 00:00: mouth at [place] 00 bedtime as Medical needed for Branch Insomnia. melatonin 2020-03 Yes [id number] 1{tbl} Take 1 [facility] mg Chew 2-23 tablet by ity of 00:00: mouth at [place] 00 bedtime as Medical needed for Branch Insomnia. melatonin 2020-03 Yes [id number] 1{tbl} Take 1 [facility] mg Chew 2-23 tablet by ity of 00:00: mouth at [place] 00 bedtime as Medical needed for Branch Insomnia. melatonin 2020-03 Yes [id number] 1{tbl} Take 1 [facility] mg Chew 2-23 tablet by ity of 00:00: mouth at [place] 00 bedtime as Medical needed for Branch Insomnia. melatonin 2020-03 Yes [id number] 1{tbl} Take 1 [facility] mg Chew 2-23 tablet by ity of 00:00: mouth at [place] 00 bedtime as Medical needed for Branch Insomnia. melatonin 2020-03 Yes [id number] 1{tbl} Take 1 [facility] mg Chew 2-23 tablet by ity of 00:00: mouth at [place] 00 bedtime as Medical needed for Branch Insomnia. melatonin 2020-03 Yes [id number] 1{tbl} Take 1 [facility] mg Chew 2-23 tablet by ity of 00:00: mouth at [place] 00 bedtime as Medical needed for Branch Insomnia. melatonin 2020-03 Yes [id number] 1{tbl} Take 1 [facility] mg Chew 2-23 tablet by ity of 00:00: mouth at [place] 00 bedtime as Medical needed for Branch Insomnia. melatonin 2020-03 Yes [id number] 1{tbl} Take 1 [facility] mg Chew 2-23 tablet by ity of 00:00: mouth at [place] 00 bedtime as Medical needed for Branch Insomnia. melatonin 2020-03 Yes [id number] 1{tbl} Take 1 [facility] mg Chew 2-23 tablet by ity of 00:00: mouth at [place] 00 bedtime as Medical needed for Branch Insomnia. melatonin 2020-03 Yes [id number] 1{tbl} Take 1 [facility] mg Chew 2-23 tablet by ity of 00:00: mouth at [place] 00 bedtime as Medical needed for Branch Insomnia. melatonin 2020-03 Yes [id number] 1{tbl} Take 1 [facility] mg Chew 2-23 tablet by ity of 00:00: mouth at [place] 00 bedtime as Medical needed for Branch Insomnia. melatonin 2020-03 Yes [id number] 1{tbl} Take 1 [facility] mg Chew 2-23 tablet by ity of 00:00: mouth at [place] 00 bedtime as Medical needed for Branch Insomnia. melatonin 2020-03 Yes [id number] 1{tbl} Take 1 [facility] mg Chew 2-23 tablet by ity of 00:00: mouth at [place] 00 bedtime as Medical needed for Branch Insomnia. melatonin 2020-03 Yes [id number] 1{tbl} Take 1 [facility] mg Chew 2-23 tablet by ity of 00:00: mouth at [place] 00 bedtime as Medical needed for Branch Insomnia. melatonin 2020-03 Yes [id number] 1{tbl} Take 1 [facility] mg Chew 2-23 tablet by ity of 00:00: mouth at [place] 00 bedtime as Medical needed for Branch Insomnia. melatonin 2020-03 Yes [id number] 1{tbl} Take 1 [facility] mg Chew 2-23 tablet by ity of 00:00: mouth at [place] 00 bedtime as Medical needed for Branch Insomnia. melatonin 2020-03 Yes [id number] 1{tbl} Take 1 [facility] mg Chew 2-23 tablet by ity of 00:00: mouth at [place] 00 bedtime as Medical needed for Branch Insomnia. melatonin 2020-03 Yes [id number] 1{tbl} Take 1 [facility] mg Chew 2-23 tablet by ity of 00:00: mouth at [place] 00 bedtime as Medical needed for Branch Insomnia. melatonin 2020-03 Yes [id number] 1{tbl} Take 1 [facility] mg Chew 2-23 tablet by ity of 00:00: mouth at [place] [address] bedtime as Medical needed for Branch Insomnia. melatonin 2020-03 Yes [id number] 1{tbl} Take 1 [facility] mg Chew 2-23 tablet by ity of 00:00: mouth at [place] 00 bedtime as Medical needed for Branch Insomnia. melatonin 2020-03 Yes [id number] 1{tbl} Take 1 [facility] mg Chew 2-23 tablet by ity of 00:00: mouth at [place] 00 bedtime as Medical needed for Branch Insomnia. melatonin 2020-03 Yes [id number] 1{tbl} Take 1 [facility] mg Chew 2-23 tablet by ity of 00:00: mouth at [place] 00 bedtime as Medical needed for Branch Insomnia. melatonin 2020-03 Yes [id number] 1{tbl} Take 1 [facility] mg Chew 2-23 tablet by ity of 00:00: mouth at [place] 00 bedtime as Medical needed for Branch Insomnia. melatonin 2020-03 Yes [id number] 1{tbl} Take 1 [facility] mg Chew 2-23 tablet by ity of 00:00: mouth at [place] 00 bedtime as Medical needed for Branch Insomnia. liraglutide 2020-03 Yes [id number] 1mg inject 1 [facility] , weight 2-23 mg under ity of loss, 00:00: the skin [place] ([facility]) 3 00 daily. Medica l mg/0.5 mL Start Branch (18 mg/3 0.6mg SC mL) PnIj qDay x 1 week; then increase by 0.6mg/Day qWK to target 3mg SC qDay: Max 3mg/Day. melatonin 2020-03 Yes [id number] 1{tbl} Take 1 [facility] mg Chew 2-23 tablet by ity of 00:00: mouth at [place] 00 bedtime as Medical needed for Branch Insomnia. liraglutide 2020-03 Yes [id number] 1mg inject 1 [facility] , weight 2-23 mg under ity of loss, 00:00: the skin [place] ([facility]) 3 00 daily. Medica l mg/0.5 mL Start Branch (18 mg/3 0.6mg SC mL) PnIj qDay x 1 week; then increase by 0.6mg/Day qWK to target 3mg SC qDay: Max 3mg/Day. melatonin 2020-03 Yes [id number] 1{tbl} Take 1 [facility] mg Chew 2-23 tablet by ity of 00:00: mouth at [place] 00 bedtime as Medical needed for Branch Insomnia. liraglutide 2020-03 Yes [id number] 1mg inject 1 [facility] , weight 2-23 mg under ity of loss, 00:00: the skin [place] ([facility]) 3 00 daily. Medica l mg/0.5 mL Start Branch (18 mg/3 0.6mg SC mL) PnIj qDay x 1 week; then increase by 0.6mg/Day qWK to target 3mg SC qDay: Max 3mg/Day. melatonin 2020-03 Yes [id number] 1{tbl} Take 1 [facility] mg Chew 2-23 tablet by ity of 00:00: mouth at [place] 00 bedtime as Medical needed for Branch Insomnia. liraglutide 2020-03 Yes [id number] 1mg inject 1 [facility] , weight 2-23 mg under ity of loss, 00:00: the skin [place] ([facility]) 3 00 daily. Medica l mg/0.5 mL Start Branch (18 mg/3 0.6mg SC mL) PnIj qDay x 1 week; then increase by 0.6mg/Day qWK to target 3mg SC qDay: Max 3mg/Day. melatonin 2020-03 Yes [id number] 1{tbl} Take 1 [facility] mg Chew 2-23 tablet by ity of 00:00: mouth at [place] 00 bedtime as Medical needed for Branch Insomnia. liraglutide 2020-03 Yes [id number] 1mg inject 1 [facility] , weight 2-23 mg under ity of loss, 00:00: the skin [place] ([facility]) 3 00 daily. Medica l mg/0.5 mL Start Branch (18 mg/3 0.6mg SC mL) PnIj qDay x 1 week; then increase by 0.6mg/Day qWK to target 3mg SC qDay: Max 3mg/Day. melatonin 2020-03 Yes [id number] 1{tbl} Take 1 [facility] mg Chew 2-23 tablet by ity of 00:00: mouth at [place] 00 bedtime as Medical needed for Branch Insomnia. liraglutide 2020-03 Yes [id number] 1mg inject 1 [facility] , weight 2-23 mg under ity of loss, 00:00: the skin [place] ([facility]) 3 00 daily. Medica l mg/0.5 mL Start Branch (18 mg/3 0.6mg SC mL) PnIj qDay x 1 week; then increase by 0.6mg/Day qWK to target 3mg SC qDay: Max 3mg/Day. melatonin 2020-03 Yes [id number] 1{tbl} Take 1 [facility] mg Chew 2-23 tablet by ity of 00:00: mouth at [place] 00 bedtime as Medical needed for Branch Insomnia. liraglutide 2020-03 Yes [id number] 1mg inject 1 [facility] , weight 2-23 mg under ity of loss, 00:00: the skin [place] ([facility] 3 00 daily. Medica l mg/0.5 mL Start Branch (18 mg/3 0.6mg SC mL) PnIj qDay x 1 week; then increase by 0.6mg/Day qWK to target 3mg SC qDay: Max 3mg/Day. melatonin 2020-03 Yes [id number] 1{tbl} Take 1 [facility] mg Chew 2-23 tablet by ity of 00:00: mouth at [place] 00 bedtime as Medical needed for Branch Insomnia. liraglutide 2020-03 Yes [id number] 1mg inject 1 [facility] , weight 2-23 mg under ity of loss, 00:00: the skin [place] ([facility]) 3 00 daily. Medica l mg/0.5 mL Start Branch (18 mg/3 0.6mg SC mL) PnIj qDay x 1 week; then increase by 0.6mg/Day qWK to target 3mg SC qDay: Max 3mg/Day. melatonin 2020-03 Yes [id number] 1{tbl} Take 1 [facility] mg Chew 2-23 tablet by ity of 00:00: mouth at [place] 00 bedtime as Medical needed for Branch Insomnia. liraglutide 2020-03 Yes [id number] 1mg inject 1 [facility] , weight 2-23 mg under ity of loss, 00:00: the skin [place] ([facility]) 3 00 daily. Medica l mg/0.5 mL Start Branch (18 mg/3 0.6mg SC mL) PnIj qDay x 1 week; then increase by 0.6mg/Day qWK to target 3mg SC qDay: Max 3mg/Day. melatonin 2020-03 Yes [id number] 1{tbl} Take 1 [facility] mg Chew 2-23 tablet by ity of 00:00: mouth at [place] 00 bedtime as Medical needed for Branch Insomnia. liraglutide 2020-03 Yes [id number] 1mg inject 1 [facility] , weight 2-23 mg under ity of loss, 00:00: the skin [place] ([facility]) 3 00 daily. Medica l mg/0.5 mL Start Branch (18 mg/3 0.6mg SC mL) PnIj qDay x 1 week; then increase by 0.6mg/Day qWK to target 3mg SC qDay: Max 3mg/Day. melatonin 2020-03 Yes [id number] 1{tbl} Take 1 [facility] mg Chew 2-23 tablet by ity of 00:00: mouth at [place] 00 bedtime as Medical needed for Branch Insomnia. liraglutide 2020-03 Yes [id number] 1mg inject 1 [facility] , weight 2-23 mg under ity of loss, 00:00: the skin [place] ([facility]) 3 00 daily. Medica l mg/0.5 mL Start Branch (18 mg/3 0.6mg SC mL) PnIj qDay x 1 week; then increase by 0.6mg/Day qWK to target 3mg SC qDay: Max 3mg/Day. melatonin 2020-03 Yes [id number] 1{tbl} Take 1 [facility] mg Chew 2-23 tablet by ity of 00:00: mouth at [place] [address] bedtime as Medical needed for Branch Insomnia. melatonin 2020-03 Yes [id number] 1{tbl} Take 1 [facility] mg Chew 2-23 tablet by ity of 00:00: mouth at [place] 00 bedtime as Medical needed for Branch Insomnia. melatonin 2020-03 Yes [id number] 1{tbl} Take 1 [facility] mg Chew 2-23 tablet by ity of 00:00: mouth at [place] 00 bedtime as Medical needed for Branch Insomnia. melatonin 2020-03 Yes [id number] 1{tbl} Take 1 [facility] mg Chew 2-23 tablet by ity of 00:00: mouth at [place] 00 bedtime as Medical needed for Branch Insomnia. melatonin 2020-03 Yes [id number] 1{tbl} Take 1 [facility] mg Chew 2-23 tablet by ity of 00:00: mouth at [place] [address] bedtime as Medical needed for Branch Insomnia. melatonin 2020-03 Yes [id number] 1{tbl} Take 1 [facility] mg Chew 2-23 tablet by ity of 00:00: mouth at [place] [address] bedtime as Medical needed for Branch Insomnia. melatonin 2020-03 Yes [id number] 1{tbl} Take 1 [facility] mg Chew 2-23 tablet by ity of 00:00: mouth at [place] 00 bedtime as Medical needed for Branch Insomnia. melatonin 2020-03 Yes [id number] 1{tbl} Take 1 [facility] mg Chew 2-23 tablet by ity of 00:00: mouth at [place] 00 bedtime as Medical needed for Branch Insomnia. liraglutide 2020-03- No [id number] 1mg inject 1 [facility] , weight 2-23 12-20 mg under ity of loss, 00:00: 00:00 the skin [place] ([facility]) 3 00 :00 daily. Medica l mg/0.5 mL Start Branch (18 mg/3 0.6mg SC mL) PnIj qDay x 1 week; then increase by 0.6mg/Day qWK to target 3mg SC qDay: Max 3mg/Day. liraglutide 2020-03- No [id number] 1mg inject 1 [facility] , weight 2-23 12-20 mg under ity of loss, 00:00: 00:00 the skin [place] ([facility]) 3 00 :00 daily. Medica l mg/0.5 mL Start Branch (18 mg/3 0.6mg SC mL) PnIj qDay x 1 week; then increase by 0.6mg/Day qWK to target 3mg SC qDay: Max 3mg/Day. hydroCHLORO 2020-03- No [id number] 12.5mg Take 1 [facility] thiazide 2-23 08-17 capsule by ity of 12.5 mg 00:00: 00:00 mouth [place] capsule 00 :00 daily. Medical Branch lisinopriL 2020-03- No [id number] 10mg Take 1 [facility] 10 mg 2-23 08-17 tablet by ity of tablet 00:00: 00:00 mouth [place] 00 :00 daily. Medical Branch hydroCHLORO 2020-03- No [id number] 12.5mg Take 1 [facility] thiazide 2-23 08-17 capsule by ity of 12.5 mg 00:00: 00:00 mouth [place] capsule 00 :00 daily. Medical Branch lisinopriL 2020-03- No [id number] 10mg Take 1 [facility] 10 mg 2-23 08-17 tablet by ity of tablet 00:00: 00:00 mouth [place] 00 :00 daily. Medical Branch norgestrel- 0 Yes [id number] 1{tbl} Take 1 [facility] ethinyl 6-16 tablet by ity of estradioL 00:00: mouth [place] ([facility] 00 daily. Medical 0.3-30 Branch mg-mcg per tablet norgestrel- 2020-0 Yes [id number] 1{tbl} Take 1 [facility] ethinyl 6-16 tablet by ity of estradioL 00:00: mouth [place] [facility] 00 daily. Medical 0.3-30 Branch mg-mcg per tablet norgestrel- 2020-0 Yes [id number] 1{tbl} Take 1 [facility] ethinyl 6-16 tablet by ity of estradioL 00:00: mouth [place] ([facility] 00 daily. Medical 0.3-30 Branch mg-mcg per tablet norgestrel- 0 Yes [id number] 1{tbl} Take 1 [facility] ethinyl 6-16 tablet by ity of estradioL 00:00: mouth [place] ([facility] 00 daily. Medical 0.3-30 Branch mg-mcg per tablet norgestrel- 2020-0 Yes [id number] 1{tbl} Take 1 [facility] ethinyl 6-16 tablet by ity of estradioL 00:00: mouth [place] ([facility] 00 daily. Medical 0.3-30 Branch mg-mcg per tablet norgestrel- 0 Yes [id number] 1{tbl} Take 1 [facility] ethinyl 6-16 tablet by ity of estradioL 00:00: mouth [place] ([facility]) 00 daily. Medical 0.3-30 Branch mg-mcg per tablet norgestrel- 2020-0 Yes [id number] 1{tbl} Take 1 [facility] ethinyl 6-16 tablet by ity of estradioL 00:00: mouth [place] ([facility]) 00 daily. Medical 0.3-30 Branch mg-mcg per tablet norgestrel- Yes [id number] 1{tbl} Take 1 [facility] ethinyl 6-16 tablet by ity of estradioL 00:00: mouth [place] ([facility] 00 daily. Medical 0.3-30 Branch mg-mcg per tablet norgestrel- Yes [id number] 1{tbl} Take 1 [facility] ethinyl 6-16 tablet by ity of estradioL 00:00: mouth [place] ([facility]) 00 daily. Medical 0.3-30 Branch mg-mcg per tablet norgestrel- 0 2021- No [id number] 1{tbl} Take 1 [facility] ethinyl 6-16 12-09 tablet by ity of estradioL 00:00: 00:00 mouth [place] ([facility]) 00 :00 daily. Medical 0.3-30 Branch mg-mcg per tablet Immunizations Ordered Filled Date Status Comments Source Immunization Name Immunization Name SARS-COV-2 COVID-19 2021-03-13 Completed Unive rsity of [facility] VACCINE 00:00:00 [place] [facility] ical Branch SARS-COV-2 COVID-19 2021-03-13 Completed Unive rsity of MODERNA VACCINE 00:00:00 [place] Med ical Branch SARS-COV-2 COVID-19 2021-03-13 Completed Unive rsity of MODERNA 12+ YRS 00:00:00 [place] Med ical VACCINE Branch SARS-COV-2 COVID-19 2021-03-13 Completed Unive rsity of MODERNA 12+ YRS 00:00:00 [place] Med ical VACCINE Branch SARS-COV-2 COVID-19 2021-03-13 Completed Unive rsity of MODERNA 12+ YRS 00:00:00 [place] Med ical VACCINE Branch SARS-COV-2 COVID-19 2021-03-13 Completed Unive rsity of MODERNA 12+ YRS 00:00:00 [place] Med ical VACCINE Branch SARS-COV-2 COVID-19 2021-03-13 Completed Unive rsity of MODERNA 12+ YRS 00:00:00 [place] Med ical VACCINE Branch SARS-COV-2 COVID-19 2021-03-13 Completed Unive rsity of MODERNA 12+ YRS 00:00:00 [place] Med ical VACCINE Branch SARS-COV-2 COVID-19 2021-03-13 Completed Unive rsity of MODERNA 12+ YRS 00:00:00 [place] Med ical VACCINE Branch SARS-COV-2 COVID-19 2021-03-13 Completed Unive rsity of MODERNA 12+ YRS 00:00:00 [place] Med ical VACCINE Branch SARS-COV-2 COVID-19 2021-03-13 Completed Unive rsity of MODERNA 12+ YRS 00:00:00 [place] Med ical VACCINE Branch SARS-COV-2 COVID-19 2021-03-13 Completed Unive rsity of MODERNA 12+ YRS 00:00:00 [place] Med ical VACCINE Branch SARS-COV-2 COVID-19 2021-03-13 Completed Unive rsity of MODERNA 12+ YRS 00:00:00 [place] Med ical VACCINE Branch SARS-COV-2 COVID-19 2021-03-13 Completed Unive rsity of MODERNA 12+ YRS 00:00:00 [place] Med ical VACCINE Branch SARS-COV-2 COVID-19 2021-03-13 Completed Unive rsity of MODERNA 12+ YRS 00:00:00 [place] Med ical VACCINE Branch SARS-COV-2 COVID-19 2021-03-13 Completed Unive rsity of MODERNA 12+ YRS 00:00:00 [place] Med ical VACCINE Branch SARS-COV-2 COVID-19 2021-03-13 Completed Unive rsity of MODERNA 12+ YRS 00:00:00 [place] Med ical VACCINE Branch SARS-COV-2 COVID-19 2021-03-13 Completed Unive rsity of MODERNA 12+ YRS 00:00:00 [place] Med ical VACCINE Branch SARS-COV-2 COVID-19 2021-03-13 Completed Unive rsity of MODERNA 12+ YRS 00:00:00 [place] Med ical VACCINE Branch SARS-COV-2 COVID-19 2021-03-13 Completed Unive rsity of MODERNA 12+ YRS 00:00:00 [place] Med ical VACCINE Branch SARS-COV-2 COVID-19 2021-03-13 Completed Unive rsity of MODERNA 12+ YRS 00:00:00 [place] Med ical VACCINE Branch SARS-COV-2 COVID-19 2021-03-13 Completed Unive rsity of MODERNA 12+ YRS 00:00:00 [place] Med ical VACCINE Branch SARS-COV-2 COVID-19 2021-03-13 Completed Unive rsity of MODERNA 12+ YRS 00:00:00 [place] Med ical VACCINE Branch SARS-COV-2 COVID-19 2021-03-13 Completed Unive rsity of MODERNA 12+ YRS 00:00:00 [place] Med ical VACCINE Branch SARS-COV-2 COVID-19 2021-03-13 Completed Unive rsity of MODERNA 12+ YRS 00:00:00 [place] Med ical VACCINE Branch SARS-COV-2 COVID-19 2021-03-13 Completed Unive rsity of MODERNA 12+ YRS 00:00:00 [place] Med ical VACCINE Branch SARS-COV-2 COVID-19 2021-03-13 Completed Unive rsity of MODERNA 12+ YRS 00:00:00 [place] Med ical VACCINE Branch SARS-COV-2 COVID-19 2021-03-13 Completed Unive rsity of MODERNA 12+ YRS 00:00:00 [place] Med ical VACCINE Branch SARS-COV-2 COVID-19 2021-03-13 Completed Unive rsity of MODERNA 12+ YRS 00:00:00 [place] Med ical VACCINE Branch SARS-COV-2 COVID-19 2021-03-13 Completed Unive rsity of MODERNA 12+ YRS 00:00:00 [place] Med ical VACCINE Branch SARS-COV-2 COVID-19 2021-03-13 Completed Unive rsity of MODERNA 12+ YRS 00:00:00 [place] Med ical VACCINE Branch SARS-COV-2 COVID-19 2021-03-13 Completed Unive rsity of MODERNA 12+ YRS 00:00:00 [place] Med ical VACCINE Branch SARS-COV-2 COVID-19 2021-03-13 Completed Unive rsity of MODERNA 12+ YRS 00:00:00 [place] Med ical VACCINE Branch SARS-COV-2 COVID-19 2021-03-13 Completed Unive rsity of MODERNA 12+ YRS 00:00:00 [place] Med ical VACCINE Branch SARS-COV-2 COVID-19 2021-03-13 Completed Unive rsity of MODERNA 12+ YRS 00:00:00 [place] Med ical VACCINE Branch SARS-COV-2 COVID-19 2021-03-13 Completed Unive rsity of MODERNA 12+ YRS 00:00:00 [place] Med ical VACCINE Branch SARS-COV-2 COVID-19 2021-03-13 Completed Unive rsity of MODERNA 12+ YRS 00:00:00 [place] Med ical VACCINE Branch SARS-COV-2 COVID-19 2021-03-13 Completed Unive rsity of MODERNA 12+ YRS 00:00:00 [place] Med ical VACCINE Branch SARS-COV-2 COVID-19 2021-03-13 Completed Unive rsity of MODERNA 12+ YRS 00:00:00 [place] Med ical VACCINE Branch SARS-COV-2 COVID-19 2021-03-13 Completed Unive rsity of MODERNA 12+ YRS 00:00:00 [place] [facility] ical VACCINE Branch SARS-COV-2 COVID-19 2021-03-13 Completed Unive rsity of MODERNA 12+ YRS 00:00:00 [facility] ical VACCINE Branch Influenza Virus 2021-01-18 Completed Universit y of Vaccine 00:00:00 [facility] Influenza Virus 2021-01-18 Completed Universit y of Vaccine 00:00:00 [facility] Influenza Virus 2021-01-18 Completed Universit y of Vaccine 00:00:00 [facility] Influenza Virus 2021-01-18 Completed Universit y of Vaccine 00:00:00 [facility] Influenza Virus 2021-01-18 Completed Universit y of Vaccine 00:00:00 [facility] Influenza Virus 2021-01-18 Completed Universit y of Vaccine 00:00:00 [facility] Influenza Virus 2021-01-18 Completed Universit y of Vaccine 00:00:00 [facility] Influenza Virus 2021-01-18 Completed Universit y of Vaccine 00:00:00 [facility] Influenza Virus 2021-01-18 Completed Universit y of Vaccine 00:00:00 [facility] Influenza Virus 2021-01-18 Completed Universit y of Vaccine 00:00:00 [facility] Influenza Virus 2021-01-18 Completed Universit y of Vaccine 00:00:00 [facility] Influenza Virus 2021-01-18 Completed Universit y of Vaccine 00:00:00 [facility] Influenza Virus 2021-01-18 Completed Universit y of Vaccine 00:00:00 [facility] Influenza Virus 2021-01-18 Completed Universit y of Vaccine 00:00:00 [facility] Influenza Virus 2021-01-18 Completed Universit y of Vaccine 00:00:00 [facility] Influenza Virus 2021-01-18 Completed Universit y of Vaccine 00:00:00 [facility] Influenza Virus 2021-01-18 Completed Universit y of Vaccine 00:00:00 [facility] Influenza Virus 2021-01-18 Completed Universit y of Vaccine 00:00:00 [facility] Influenza Virus 2021-01-18 Completed Universit y of Vaccine 00:00:00 [facility] Influenza Virus 2021-01-18 Completed Universit y of Vaccine 00:00:00 [facility] Influenza Virus 2021-01-18 Completed Universit y of Vaccine 00:00:00 [facility] Influenza Virus 2021-01-18 Completed Universit y of Vaccine 00:00:00 [facility] Influenza Virus 2021-01-18 Completed Universit y of Vaccine 00:00:00 [facility] Influenza Virus 2021-01-18 Completed Universit y of Vaccine 00:00:00 [facility] Influenza Virus 2021-01-18 Completed Universit y of Vaccine 00:00:00 [facility] Influenza Virus 2021-01-18 Completed Universit y of Vaccine 00:00:00 [facility] Influenza Virus 2021-01-18 Completed Universit y of Vaccine 00:00:00 [facility] Influenza Virus 2021-01-18 Completed Universit y of Vaccine 00:00:00 [facility] Influenza Virus 2021-01-18 Completed Universit y of Vaccine 00:00:00 [facility] Influenza Virus 2021-01-18 Completed Universit y of Vaccine 00:00:00 [facility] Influenza Virus 2021-01-18 Completed Universit y of Vaccine 00:00:00 [facility] Influenza Virus 2021-01-18 Completed Universit y of Vaccine 00:00:00 [facility] Influenza Virus 2021-01-18 Completed Universit y of Vaccine 00:00:00 [facility] Influenza Virus 2021-01-18 Completed Universit y of Vaccine 00:00:00 [facility] Influenza Virus 2021-01-18 Completed Universit y of Vaccine 00:00:00 [facility] Influenza Virus 2021-01-18 Completed Universit y of Vaccine 00:00:00 [facility] Influenza Virus 2021-01-18 Completed Universit y of Vaccine 00:00:00 [facility] Influenza Virus 2021-01-18 Completed Universit y of Vaccine 00:00:00 [facility] Influenza Virus 2021-01-18 Completed Universit y of Vaccine 00:00:00 [facility] Influenza Virus 2021-01-18 Completed Universit y of Vaccine 00:00:00 [facility] Influenza Virus 2021-01-18 Completed Universit y of Vaccine 00:00:00 [facility] SARS-COV-2 COVID-19 2020-05-18 Completed Unive rsity of MODERNA VACCINE 00:00:00 [facility] [facility] SARS-COV-2 COVID-19 2020-05-18 Completed Unive rsity of MODERNA VACCINE 00:00:00 [facility] [facility] SARS-COV-2 COVID-19 2020-05-18 Completed Unive rsity of MODERNA 12+ YRS 00:00:00 [facility] SARS-COV-2 COVID-19 2020-05-18 Completed Unive rsity of MODERNA 12+ YRS 00:00:00 [place] Med ical VACCINE Branch SARS-COV-2 COVID-19 2020-05-18 Completed Unive rsity of MODERNA 12+ YRS 00:00:00 [place] Med ical VACCINE Branch SARS-COV-2 COVID-19 2020-05-18 Completed Unive rsity of MODERNA 12+ YRS 00:00:00 [place] Med ical VACCINE Branch SARS-COV-2 COVID-19 2020-05-18 Completed Unive rsity of MODERNA 12+ YRS 00:00:00 [place] Med ical VACCINE Branch SARS-COV-2 COVID-19 2020-05-18 Completed Unive rsity of MODERNA 12+ YRS 00:00:00 [place] Med ical VACCINE Branch SARS-COV-2 COVID-19 2020-05-18 Completed Unive rsity of MODERNA 12+ YRS 00:00:00 [place] Med ical VACCINE Branch SARS-COV-2 COVID-19 2020-05-18 Completed Unive rsity of MODERNA 12+ YRS 00:00:00 [place] Med ical VACCINE Branch SARS-COV-2 COVID-19 2020-05-18 Completed Unive rsity of MODERNA 12+ YRS 00:00:00 [place] Med ical VACCINE Branch SARS-COV-2 COVID-19 2020-05-18 Completed Unive rsity of MODERNA 12+ YRS 00:00:00 [place] Med ical VACCINE Branch SARS-COV-2 COVID-19 2020-05-18 Completed Unive rsity of MODERNA 12+ YRS 00:00:00 [place] Med ical VACCINE Branch SARS-COV-2 COVID-19 2020-05-18 Completed Unive rsity of MODERNA 12+ YRS 00:00:00 [place] Med ical VACCINE Branch SARS-COV-2 COVID-19 2020-05-18 Completed Unive rsity of MODERNA 12+ YRS 00:00:00 [place] Med ical VACCINE Branch SARS-COV-2 COVID-19 2020-05-18 Completed Unive rsity of MODERNA 12+ YRS 00:00:00 [place] Med ical VACCINE Branch SARS-COV-2 COVID-19 2020-05-18 Completed Unive rsity of MODERNA 12+ YRS 00:00:00 [place] Med ical VACCINE Branch SARS-COV-2 COVID-19 2020-05-18 Completed Unive rsity of MODERNA 12+ YRS 00:00:00 [place] Med ical VACCINE Branch SARS-COV-2 COVID-19 2020-05-18 Completed Unive rsity of MODERNA 12+ YRS 00:00:00 [place] Med ical VACCINE Branch SARS-COV-2 COVID-19 2020-05-18 Completed Unive rsity of MODERNA 12+ YRS 00:00:00 [place] Med ical VACCINE Branch SARS-COV-2 COVID-19 2020-05-18 Completed Unive rsity of MODERNA 12+ YRS 00:00:00 [place] Med ical VACCINE Branch SARS-COV-2 COVID-19 2020-05-18 Completed Unive rsity of MODERNA 12+ YRS 00:00:00 [place] Med ical VACCINE Branch SARS-COV-2 COVID-19 2020-05-18 Completed Unive rsity of MODERNA 12+ YRS 00:00:00 [place] Med ical VACCINE Branch SARS-COV-2 COVID-19 2020-05-18 Completed Unive rsity of MODERNA 12+ YRS 00:00:00 [place] Med ical VACCINE Branch SARS-COV-2 COVID-19 2020-05-18 Completed Unive rsity of MODERNA 12+ YRS 00:00:00 [place] Med ical VACCINE Branch SARS-COV-2 COVID-19 2020-05-18 Completed Unive rsity of MODERNA 12+ YRS 00:00:00 [place] Med ical VACCINE Branch SARS-COV-2 COVID-19 2020-05-18 Completed Unive rsity of MODERNA 12+ YRS 00:00:00 [place] Med ical VACCINE Branch SARS-COV-2 COVID-19 2020-05-18 Completed Unive rsity of MODERNA 12+ YRS 00:00:00 [place] Med ical VACCINE Branch SARS-COV-2 COVID-19 2020-05-18 Completed Unive rsity of MODERNA 12+ YRS 00:00:00 [place] Med ical VACCINE Branch SARS-COV-2 COVID-19 2020-05-18 Completed Unive rsity of MODERNA 12+ YRS 00:00:00 [place] Med ical VACCINE Branch SARS-COV-2 COVID-19 2020-05-18 Completed Unive rsity of MODERNA 12+ YRS 00:00:00 [place] Med ical VACCINE Branch SARS-COV-2 COVID-19 2020-05-18 Completed Unive rsity of MODERNA 12+ YRS 00:00:00 [place] Med ical VACCINE Branch SARS-COV-2 COVID-19 2020-05-18 Completed Unive rsity of MODERNA 12+ YRS 00:00:00 [place] Med ical VACCINE Branch SARS-COV-2 COVID-19 2020-05-18 Completed Unive rsity of MODERNA 12+ YRS 00:00:00 [place] Med ical VACCINE Branch SARS-COV-2 COVID-19 2020-05-18 Completed Unive rsity of MODERNA 12+ YRS 00:00:00 [place] Med ical VACCINE Branch SARS-COV-2 COVID-19 2020-05-18 Completed Unive rsity of MODERNA 12+ YRS 00:00:00 [place] Med ical VACCINE Branch SARS-COV-2 COVID-19 2020-05-18 Completed Unive rsity of MODERNA 12+ YRS 00:00:00 [place] Med ical VACCINE Branch SARS-COV-2 COVID-19 2020-05-18 Completed Unive rsity of MODERNA 12+ YRS 00:00:00 [place] Med ical VACCINE Branch SARS-COV-2 COVID-19 2020-05-18 Completed Unive rsity of MODERNA 12+ YRS 00:00:00 [place] Med ical VACCINE Branch SARS-COV-2 COVID-19 2020-05-18 Completed Unive rsity of MODERNA 12+ YRS 00:00:00 [place] Med ical VACCINE Branch SARS-COV-2 COVID-19 2020-05-18 Completed Unive rsity of MODERNA 12+ YRS 00:00:00 [place] Med ical VACCINE Branch SARS-COV-2 COVID-19 2020-04-21 Completed Unive rsity of MODERNA VACCINE 00:00:00 [place] [facility] Branch SARS-COV-2 COVID-19 2020-04-21 Completed Unive rsity of MODERNA VACCINE 00:00:00 [place] [facility] Branch SARS-COV-2 COVID-19 2020-04-21 Completed Unive rsity of MODERNA 12+ YRS 00:00:00 [place] Med ical VACCINE Branch SARS-COV-2 COVID-19 2020-04-21 Completed Unive rsity of MODERNA 12+ YRS 00:00:00 [place] Med ical VACCINE Branch SARS-COV-2 COVID-19 2020-04-21 Completed Unive rsity of MODERNA 12+ YRS 00:00:00 [place] Med ical VACCINE Branch SARS-COV-2 COVID-19 2020-04-21 Completed Unive rsity of MODERNA 12+ YRS 00:00:00 [place] Med ical VACCINE Branch SARS-COV-2 COVID-19 2020-04-21 Completed Unive rsity of MODERNA 12+ YRS 00:00:00 [place] Med ical VACCINE Branch SARS-COV-2 COVID-19 2020-04-21 Completed Unive rsity of MODERNA 12+ YRS 00:00:00 [place] Med ical VACCINE Branch SARS-COV-2 COVID-19 2020-04-21 Completed Unive rsity of MODERNA 12+ YRS 00:00:00 [place] Med ical VACCINE Branch SARS-COV-2 COVID-19 2020-04-21 Completed Unive rsity of MODERNA 12+ YRS 00:00:00 [place] Med ical VACCINE Branch SARS-COV-2 COVID-19 2020-04-21 Completed Unive rsity of MODERNA 12+ YRS 00:00:00 [place] [facility] ical VACCINE Branch SARS-COV-2 COVID-19 2020-04-21 Completed Unive rsity of MODERNA 12+ YRS 00:00:00 [place] Med ical VACCINE Branch SARS-COV-2 COVID-19 2020-04-21 Completed Unive rsity of MODERNA 12+ YRS 00:00:00 [place] Med ical VACCINE Branch SARS-COV-2 COVID-19 2020-04-21 Completed Unive rsity of MODERNA 12+ YRS 00:00:00 [place] Med ical VACCINE Branch SARS-COV-2 COVID-19 2020-04-21 Completed Unive rsity of MODERNA 12+ YRS 00:00:00 [place] Med ical VACCINE Branch SARS-COV-2 COVID-19 2020-04-21 Completed Unive rsity of MODERNA 12+ YRS 00:00:00 [place] Med ical VACCINE Branch SARS-COV-2 COVID-19 2020-04-21 Completed Unive rsity of MODERNA 12+ YRS 00:00:00 [place] Med ical VACCINE Branch SARS-COV-2 COVID-19 2020-04-21 Completed Unive rsity of MODERNA 12+ YRS 00:00:00 [place] Med ical VACCINE Branch SARS-COV-2 COVID-19 2020-04-21 Completed Unive rsity of MODERNA 12+ YRS 00:00:00 [place] Med ical VACCINE Branch SARS-COV-2 COVID-19 2020-04-21 Completed Unive rsity of MODERNA 12+ YRS 00:00:00 [place] [facility] ical VACCINE Branch SARS-COV-2 COVID-19 2020-04-21 Completed Unive rsity of MODERNA 12+ YRS 00:00:00 [place] [facility] ical VACCINE Branch SARS-COV-2 COVID-19 2020-04-21 Completed Unive rsity of MODERNA 12+ YRS 00:00:00 [place] [facility] ical VACCINE Branch SARS-COV-2 COVID-19 2020-04-21 Completed Unive rsity of MODERNA 12+ YRS 00:00:00 [place] [facility] ical VACCINE Branch SARS-COV-2 COVID-19 2020-04-21 Completed Unive rsity of MODERNA 12+ YRS 00:00:00 [place] [facility] ical VACCINE Branch SARS-COV-2 COVID-19 2020-04-21 Completed Unive rsity of MODERNA 12+ YRS 00:00:00 [place] [facility] ical VACCINE Branch SARS-COV-2 COVID-19 2020-04-21 Completed Unive rsity of MODERNA 12+ YRS 00:00:00 [place] [facility] ical VACCINE Branch SARS-COV-2 COVID-19 2020-04-21 Completed Unive rsity of MODERNA 12+ YRS 00:00:00 [place] [facility] ical VACCINE Branch SARS-COV-2 COVID-19 2020-04-21 Completed Unive rsity of MODERNA 12+ YRS 00:00:00 [place] [facility] ical VACCINE Branch SARS-COV-2 COVID-19 2020-04-21 Completed Unive rsity of MODERNA 12+ YRS 00:00:00 [place] [facility] ical VACCINE Branch SARS-COV-2 COVID-19 2020-04-21 Completed Unive rsity of MODERNA 12+ YRS 00:00:00 [place] [facility] ical VACCINE Branch SARS-COV-2 COVID-19 2020-04-21 Completed Unive rsity of MODERNA 12+ YRS 00:00:00 [place] [facility] ical VACCINE Branch SARS-COV-2 COVID-19 2020-04-21 Completed Unive rsity of MODERNA 12+ YRS 00:00:00 [place] [facility] ical VACCINE Branch SARS-COV-2 COVID-19 2020-04-21 Completed Unive rsity of MODERNA 12+ YRS 00:00:00 [place] [facility] ical VACCINE Branch SARS-COV-2 COVID-19 2020-04-21 Completed [facility] 12+ YRS 00:00:00 [place] [facility] SARS-COV-2 COVID-19 2020-04-21 Completed [facility] 12+ YRS 00:00:00 [facility] SARS-COV-2 COVID-19 2020-04-21 Completed [facility] 12+ YRS 00:00:00 [facility] SARS-COV-2 COVID-19 2020-04-21 Completed [facility] 12+ YRS 00:00:00 [facility] VACC[facility] SARS-COV-2 COVID-19 2020-04-21 Completed [facility] 12+ YRS 00:00:00 [place] [facility] VACC[facility] SARS-COV-2 COVID-19 2020-04-21 Completed [facility] 12+ YRS 00:00:00 [facility] VACCINE [facility] SARS-COV-2 COVID-19 2020-04-21 Completed [facility] 12+ YRS 00:00:00 [place] [facility] VACCINE [facility] SARS-COV-2 COVID-19 2020-04-21 Completed [facility] 12+ YRS 00:00:00 [facility] VACCINE [facility] Influenza Virus 2020-03-22 Completed [facility] Vaccine Quad .5 mL 00:00:00 [facility] 6[facility] MO [facility] Influenza Virus 2020-03-22 Completed [facility] Vaccine Quad .5 mL 00:00:00 [facility] 6[facility] MO [facility] Influenza Virus 2020-03-22 Completed [facility] Vaccine Quad .5 mL 00:00:00 [facility] 6[facility] MO [facility] Influenza Virus 2020-03-22 Completed [facility] Vaccine Quad .5 mL 00:00:00 [facility] 6[facility] MO [facility] Influenza Virus 2020-03-22 Completed [facility] Vaccine Quad .5 mL 00:00:00 [facility] 6[facility] MO [facility] Influenza Virus 2020-03-22 Completed [facility] Vaccine Quad .5 mL 00:00:00 [facility] 6[facility] MO [facility] Influenza Virus 2020-03-22 Completed [facility] Vaccine Quad .5 mL 00:00:00 [facility] 6[facility] MO [facility] Influenza Virus 2020-03-22 Completed [facility] Vaccine Quad .5 mL 00:00:00 [facility] 6[facility] MO [facility] Influenza Virus 2020-03-22 Completed [facility] Vaccine Quad .5 mL 00:00:00 [facility] 6[facility] MO [facility] Influenza Virus 2020-03-22 Completed [facility] Vaccine Quad .5 mL 00:00:00 [facility] 6[facility] MO [facility] Influenza Virus 2020-03-22 Completed [facility] Vaccine Quad .5 mL 00:00:00 [facility] 6[facility] MO [facility] Influenza Virus 2020-03-22 Completed [facility] Vaccine Quad .5 mL 00:00:00 [facility] 6[facility] MO [facility] Influenza Virus 2020-03-22 Completed [facility] Vaccine Quad .5 mL 00:00:00 [facility] 6[facility] MO [facility] Influenza Virus 2020-03-22 Completed [facility] Vaccine Quad .5 mL 00:00:00 [facility] 6[facility] MO [facility] Influenza Virus 2020-03-22 Completed [facility] Vaccine Quad .5 mL 00:00:00 [facility] 6[facility] MO [facility] Influenza Virus 2020-03-22 Completed [facility] Vaccine Quad .5 mL 00:00:00 [facility] 6[facility] MO [facility] Influenza Virus 2020-03-22 Completed [facility] Vaccine Quad .5 mL 00:00:00 [facility] 6[facility] MO [facility] Influenza Virus 2020-03-22 Completed [facility] Vaccine Quad .5 mL 00:00:00 [facility] 6[facility] MO [facility] Influenza Virus 2020-03-22 Completed [facility] Vaccine Quad .5 mL 00:00:00 [facility] 6[facility] MO [facility] Influenza Virus 2020-03-22 Completed [facility] Vaccine Quad .5 mL 00:00:00 [facility] 6[facility] MO [facility] Influenza Virus 2020-03-22 Completed [facility] Vaccine Quad .5 mL 00:00:00 [facility] 6[facility] MO [facility] Influenza Virus 2020-03-22 Completed [facility] Vaccine Quad .5 mL 00:00:00 [facility] 6[facility] MO [facility] Influenza Virus 2020-03-22 Completed [facility] Vaccine Quad .5 mL 00:00:00 [facility] 6[facility] MO [facility] Influenza Virus 2020-03-22 Completed [facility] Vaccine Quad .5 mL 00:00:00 [facility] 6[facility] MO [facility] Influenza Virus 2020-03-22 Completed [facility] Vaccine Quad .5 mL 00:00:00 [facility] 6[facility] MO [facility] Influenza Virus 2020-03-22 Completed [facility] Vaccine Quad .5 mL 00:00:00 [facility] 6[facility] MO [facility] Influenza Virus 2020-03-22 Completed [facility] Vaccine Quad .5 mL 00:00:00 [facility] 6[facility] MO [facility] Influenza Virus 2020-03-22 Completed [facility] Vaccine Quad .5 mL 00:00:00 [facility] 6[facility] MO [facility] Influenza Virus 2020-03-22 Completed [facility] Vaccine Quad .5 mL 00:00:00 [facility] 6[facility] MO [facility] Influenza Virus 2020-03-22 Completed [facility] Vaccine Quad .5 mL 00:00:00 [facility] 6[facility] MO [facility] Influenza Virus 2020-03-22 Completed [facility] Vaccine Quad .5 mL 00:00:00 [facility] 6[facility] MO [facility] Influenza Virus 2020-03-22 Completed [facility] Vaccine Quad .5 mL 00:00:00 [facility] 6[facility] MO [facility] Influenza Virus 2020-03-22 Completed [facility] Vaccine Quad .5 mL 00:00:00 [facility] 6[facility] MO [facility] Influenza Virus 2020-03-22 Completed [facility] Vaccine Quad .5 mL 00:00:00 [facility] 6[facility] MO [facility] Influenza Virus 2020-03-22 Completed [facility] Vaccine Quad .5 mL 00:00:00 [facility] 6[facility] MO [facility] Influenza Virus 2020-03-22 Completed [facility] Vaccine Quad .5 mL 00:00:00 [facility] 6[facility] MO [facility] Influenza Virus 2020-03-22 Completed [facility] Vaccine Quad .5 mL 00:00:00 [facility] 6[facility] MO [facility] Influenza Virus 2020-03-22 Completed [facility] Vaccine Quad .5 mL 00:00:00 [facility] 6[facility] MO [facility] Influenza Virus 2020-03-22 Completed [facility] Vaccine Quad .5 mL 00:00:00 [facility] 6[facility] MO [facility] Influenza Virus 2020-03-22 Completed [facility] Vaccine Quad .5 mL 00:00:00 [facility] 6[facility] MO [facility] Influenza Virus 2020-03-22 Completed [facility] Vaccine Quad .5 mL 00:00:00 [facility] 6[facility] MO [facility] Influenza Virus 2019-02-11 Completed [facility] Vaccine Quad .5 mL 00:00:00 [facility] 6[facility] MO [facility] Pneumococcal 2019-02-11 Completed [facility] o f Polysaccharide, 00:00:00 [facility] PPSV23 (PNEUMOVAX) Branch Influenza Virus 2019-02-11 Completed [facility] Vaccine Quad .5 mL 00:00:00 [facility] 6[facility] MO [facility] Pneumococcal 2019-02-11 Completed [facility] f Polysaccharide, 00:00:00 [facility] PPSV23 (PNEUMOVAX) Branch Influenza Virus 2019-02-11 Completed [facility] Vaccine Quad .5 mL 00:00:00 [facility] 6[facility] MO [facility] Pneumococcal 2019-02-11 Completed [facility] f Polysaccharide, 00:00:00 [facility] PPSV23 (PNEUMOVAX) Branch Influenza Virus 2019-02-11 Completed [facility] Vaccine Quad .5 mL 00:00:00 [facility] 6[facility] MO [facility] Pneumococcal 2019-02-11 Completed [facility] o f Polysaccharide, 00:00:00 [place] [facility] PPSV23 (PNEUMOVAX) Branch Influenza Virus 2019-02-11 Completed [facility] Vaccine Quad .5 mL 00:00:00 [facility] 6[facility] MO [facility] Pneumococcal 2019-02-11 Completed [facility] f Polysaccharide, 00:00:00 [place] [facility] PPSV23 (PNEUMOVAX) Branch Influenza Virus 2019-02-11 Completed [facility] Vaccine Quad .5 mL 00:00:00 [facility] 6[facility] MO [facility] Pneumococcal 2019-02-11 Completed [facility] f Polysaccharide, 00:00:00 [facility] PPSV23 (PNEUMOVAX) Branch Influenza Virus 2019-02-11 Completed [facility] Vaccine Quad .5 mL 00:00:00 [facility] 6[facility] MO [facility] Pneumococcal 2019-02-11 Completed [facility] f Polysaccharide, 00:00:00 [place] [facility] PPSV23 (PNEUMOVAX) Branch Influenza Virus 2019-02-11 Completed [facility] Vaccine Quad .5 mL 00:00:00 [facility] 6[facility] MO [facility] Pneumococcal 2019-02-11 Completed [facility] f Polysaccharide, 00:00:00 [place] [facility] PPSV23 (PNEUMOVAX) Branch Influenza Virus 2019-02-11 Completed [facility] Vaccine Quad .5 mL 00:00:00 [facility] 6[facility] MO [facility] Pneumococcal 2019-02-11 Completed [facility] o f Polysaccharide, 00:00:00 [facility] PPSV23 (PNEUMOVAX) Branch Influenza Virus 2019-02-11 Completed [facility] Vaccine Quad .5 mL 00:00:00 [facility] 6[facility] MO [facility] Pneumococcal 2019-02-11 Completed [facility] f Polysaccharide, 00:00:00 [place] [facility] PPSV23 (PNEUMOVAX) Branch Influenza Virus 2019-02-11 Completed [facility] Vaccine Quad .5 mL 00:00:00 [facility] 6[facility] MO [facility] Pneumococcal 2019-02-11 Completed [facility] o f Polysaccharide, 00:00:00 [place] [facility] PPSV23 (PNEUMOVAX) Branch Influenza Virus 2019-02-11 Completed [facility] Vaccine Quad .5 mL 00:00:00 [facility] 6[facility] MO [facility] Pneumococcal 2019-02-11 Completed [facility] o f Polysaccharide, 00:00:00 [place] [facility] PPSV23 (PNEUMOVAX) Branch Influenza Virus 2019-02-11 Completed [facility] Vaccine Quad .5 mL 00:00:00 [facility] 6[facility] MO [facility] Pneumococcal 2019-02-11 Completed [facility] f Polysaccharide, 00:00:00 [place] [facility] PPSV23 (PNEUMOVAX) Branch Influenza Virus 2019-02-11 Completed [facility] Vaccine Quad .5 mL 00:00:00 [facility] 6[facility] MO [facility] Pneumococcal 2019-02-11 Completed [facility] f Polysaccharide, 00:00:00 [place] [facility] PPSV23 (PNEUMOVAX) Branch Influenza Virus 2019-02-11 Completed [facility] Vaccine Quad .5 mL 00:00:00 [facility] 6[facility] MO [facility] Pneumococcal 2019-02-11 Completed [facility] o f Polysaccharide, 00:00:00 [place] [facility] PPSV23 (PNEUMOVAX) Branch Influenza Virus 2019-02-11 Completed [facility] Vaccine Quad .5 mL 00:00:00 [facility] 6[facility] MO [facility] Pneumococcal 2019-02-11 Completed [facility] o f Polysaccharide, 00:00:00 [facility] PPSV23 (PNEUMOVAX) Branch Influenza Virus 2019-02-11 Completed [facility] Vaccine Quad .5 mL 00:00:00 [facility] 6[facility] MO [facility] Pneumococcal 2019-02-11 Completed [facility] f Polysaccharide, 00:00:00 [facility] PPSV23 (PNEUMOVAX) Branch Influenza Virus 2019-02-11 Completed [facility] Vaccine Quad .5 mL 00:00:00 [facility] 6[facility] MO [facility] Pneumococcal 2019-02-11 Completed [facility] f Polysaccharide, 00:00:00 [place] [facility] PPSV23 (PNEUMOVAX) Branch Influenza Virus 2019-02-11 Completed [facility] Vaccine Quad .5 mL 00:00:00 [facility] 6[facility] MO [facility] Pneumococcal 2019-02-11 Completed [facility] o f Polysaccharide, 00:00:00 [place] [facility] PPSV23 (PNEUMOVAX) Branch Influenza Virus 2019-02-11 Completed [facility] Vaccine Quad .5 mL 00:00:00 [facility] 6[facility] MO [facility] Pneumococcal 2019-02-11 Completed [facility] f Polysaccharide, 00:00:00 [place] [facility] PPSV23 (PNEUMOVAX) Branch Influenza Virus 2019-02-11 Completed [facility] Vaccine Quad .5 mL 00:00:00 [facility] 6[facility] MO [facility] Pneumococcal 2019-02-11 Completed [facility] f Polysaccharide, 00:00:00 [place] [facility] PPSV23 (PNEUMOVAX) Branch Influenza Virus 2019-02-11 Completed [facility] Vaccine Quad .5 mL 00:00:00 [facility] 6[facility] MO [facility] Pneumococcal 2019-02-11 Completed [facility] o f Polysaccharide, 00:00:00 [facility] PPSV23 (PNEUMOVAX) Branch Influenza Virus 2019-02-11 Completed [facility] Vaccine Quad .5 mL 00:00:00 [facility] 6[facility] MO [facility] Pneumococcal 2019-02-11 Completed [facility] o f Polysaccharide, 00:00:00 [place] [facility] PPSV23 (PNEUMOVAX) Branch Influenza Virus 2019-02-11 Completed [facility] Vaccine Quad .5 mL 00:00:00 [facility] 6[facility] MO [facility] Pneumococcal 2019-02-11 Completed [facility] o f Polysaccharide, 00:00:00 [place] [facility] PPSV23 (PNEUMOVAX) Branch Influenza Virus 2019-02-11 Completed [facility] Vaccine Quad .5 mL 00:00:00 [facility] 6[facility] MO [facility] Pneumococcal 2019-02-11 Completed [facility] o f Polysaccharide, 00:00:00 [place] [facility] PPSV23 (PNEUMOVAX) Branch Influenza Virus 2019-02-11 Completed [facility] Vaccine Quad .5 mL 00:00:00 [facility] 6[facility] MO [facility] Pneumococcal 2019-02-11 Completed [facility] o f Polysaccharide, 00:00:00 [place] [facility] PPSV23 (PNEUMOVAX) Branch Influenza Virus 2019-02-11 Completed [facility] Vaccine Quad .5 mL 00:00:00 [facility] 6[facility] MO [facility] Pneumococcal 2019-02-11 Completed [facility] o f Polysaccharide, 00:00:00 [place] [facility] PPSV23 (PNEUMOVAX) Branch Influenza Virus 2019-02-11 Completed [facility] Vaccine Quad .5 mL 00:00:00 [facility] 6[facility] MO [facility] Pneumococcal 2019-02-11 Completed [facility] o f Polysaccharide, 00:00:00 [place] [facility] PPSV23 (PNEUMOVAX) Branch Influenza Virus 2019-02-11 Completed [facility] Vaccine Quad .5 mL 00:00:00 [facility] 6[facility] MO [facility] Pneumococcal 2019-02-11 Completed [facility] o f Polysaccharide, 00:00:00 [place] [facility] PPSV23 (PNEUMOVAX) Branch Influenza Virus 2019-02-11 Completed [facility] Vaccine Quad .5 mL 00:00:00 [facility] 6[facility] MO [facility] Pneumococcal 2019-02-11 Completed [facility] o f Polysaccharide, 00:00:00 [place] [facility] PPSV23 (PNEUMOVAX) Branch Influenza Virus 2019-02-11 Completed [facility] Vaccine Quad .5 mL 00:00:00 [facility] 6[facility] MO [facility] Pneumococcal 2019-02-11 Completed [facility] o f Polysaccharide, 00:00:00 [place] [facility] PPSV23 (PNEUMOVAX) Branch Influenza Virus 2019-02-11 Completed [facility] Vaccine Quad .5 mL 00:00:00 [facility] 6[facility] MO [facility] Pneumococcal 2019-02-11 Completed [facility] o f Polysaccharide, 00:00:00 [place] [facility] PPSV23 (PNEUMOVAX) Branch Influenza Virus 2019-02-11 Completed [facility] Vaccine Quad .5 mL 00:00:00 [facility] 6[facility] MO [facility] Pneumococcal 2019-02-11 Completed [facility] o f Polysaccharide, 00:00:00 [place] [facility] PPSV23 (PNEUMOVAX) Branch Influenza Virus 2019-02-11 Completed [facility] Vaccine Quad .5 mL 00:00:00 [facility] 6[facility] MO [facility] Pneumococcal 2019-02-11 Completed [facility] o f Polysaccharide, 00:00:00 [place] [facility] PPSV23 (PNEUMOVAX) Branch Influenza Virus 2019-02-11 Completed [facility] Vaccine Quad .5 mL 00:00:00 [facility] 6[facility] MO [facility] Pneumococcal 2019-02-11 Completed [facility] o f Polysaccharide, 00:00:00 [place] [facility] PPSV23 (PNEUMOVAX) Branch Influenza Virus 2019-02-11 Completed [facility] Vaccine Quad .5 mL 00:00:00 [facility] 6[facility] MO [facility] Pneumococcal 2019-02-11 Completed [facility] o f Polysaccharide, 00:00:00 [place] [facility] PPSV23 (PNEUMOVAX) Branch Influenza Virus 2019-02-11 Completed [facility] Vaccine Quad .5 mL 00:00:00 [facility] 6[facility] MO [facility] Pneumococcal 2019-02-11 Completed [facility] o f Polysaccharide, 00:00:00 [place] [facility] PPSV23 (PNEUMOVAX) Branch Influenza Virus 2019-02-11 Completed [facility] Vaccine Quad .5 mL 00:00:00 [facility] 6[facility] MO [facility] Pneumococcal 2019-02-11 Completed [facility] o f Polysaccharide, 00:00:00 [place] [facility] PPSV23 (PNEUMOVAX) Branch Influenza Virus 2019-02-11 Completed [facility] Vaccine Quad .5 mL 00:00:00 [facility] 6[facility] MO [facility] Pneumococcal 2019-02-11 Completed [facility] o f Polysaccharide, 00:00:00 [place] [facility] PPSV23 (PNEUMOVAX) Branch Influenza Virus 2019-02-11 Completed [facility] Vaccine Quad .5 mL 00:00:00 [facility] 6+ MO [facility] Pneumococcal 2019-02-11 Completed [facility] o f Polysaccharide, 00:00:00 [place] [facility] PPSV23 (PNEUMOVAX) Branch Influenza Virus 2019-02-11 Completed [facility] Vaccine Quad .5 mL 00:00:00 [facility] 6+ MO [facility] Pneumococcal 2019-02-11 Completed [facility] o f Polysaccharide, 00:00:00 [place] [facility] PPSV23 (PNEUMOVAX) Branch Influenza Virus 2018-01-25 Completed [facility] Vaccine Quad .5 mL 00:00:00 [facility] 6[facility] MO [facility] Influenza Virus 2018-01-25 Completed [facility] Vaccine Quad .5 mL 00:00:00 [facility] 6+ MO [facility] Influenza Virus 2018-01-25 Completed [facility] Vaccine Quad .5 mL 00:00:00 [facility] 6+ MO [facility] Influenza Virus 2018-01-25 Completed [facility] Vaccine Quad .5 mL 00:00:00 [facility] 6+ MO [facility] Influenza Virus 2018-01-25 Completed [facility] Vaccine Quad .5 mL 00:00:00 [facility] 6+ MO [facility] Influenza Virus 2018-01-25 Completed [facility] Vaccine Quad .5 mL 00:00:00 [facility] 6[facility] MO [facility] Influenza Virus 2018-01-25 Completed [facility] Vaccine Quad .5 mL 00:00:00 [facility] 6+ MO [facility] Influenza Virus 2018-01-25 Completed [facility] Vaccine Quad .5 mL 00:00:00 [facility] 6+ MO [facility] Influenza Virus 2018-01-25 Completed [facility] Vaccine Quad .5 mL 00:00:00 [facility] 6+ MO [facility] Influenza Virus 2018-01-25 Completed [facility] Vaccine Quad .5 mL 00:00:00 [facility] 6+ MO [facility] Influenza Virus 2018-01-25 Completed [facility] Vaccine Quad .5 mL 00:00:00 [facility] 6+ MO [facility] Influenza Virus 2018-01-25 Completed [facility] Vaccine Quad .5 mL 00:00:00 [facility] 6+ MO [facility] Influenza Virus 2018-01-25 Completed [facility] Vaccine Quad .5 mL 00:00:00 [facility] 6+ MO [facility] Influenza Virus 2018-01-25 Completed [facility] Vaccine Quad .5 mL 00:00:00 [facility] 6[facility] MO [facility] Influenza Virus 2018-01-25 Completed [facility] Vaccine Quad .5 mL 00:00:00 [facility] 6[facility] MO [facility] Influenza Virus 2018-01-25 Completed [facility] Vaccine Quad .5 mL 00:00:00 [facility] 6+ MO [facility] Influenza Virus 2018-01-25 Completed [facility] Vaccine Quad .5 mL 00:00:00 [facility] 6[facility] MO [facility] Influenza Virus 2018-01-25 Completed [facility] Vaccine Quad .5 mL 00:00:00 [facility] 6[facility] MO [facility] Influenza Virus 2018-01-25 Completed [facility] Vaccine Quad .5 mL 00:00:00 [facility] 6[facility] MO [facility] Influenza Virus 2018-01-25 Completed [facility] Vaccine Quad .5 mL 00:00:00 [facility] 6+ MO [facility] Influenza Virus 2018-01-25 Completed [facility] Vaccine Quad .5 mL 00:00:00 [facility] 6[facility] MO [facility] Influenza Virus 2018-01-25 Completed [facility] Vaccine Quad .5 mL 00:00:00 [facility] 6[facility] MO [facility] Influenza Virus 2018-01-25 Completed [facility] Vaccine Quad .5 mL 00:00:00 [facility] 6[facility] MO [facility] Influenza Virus 2018-01-25 Completed [facility] Vaccine Quad .5 mL 00:00:00 [facility] 6[facility] MO [facility] Influenza Virus 2018-01-25 Completed [facility] Vaccine Quad .5 mL 00:00:00 [facility] 6[facility] MO [facility] Influenza Virus 2018-01-25 Completed [facility] Vaccine Quad .5 mL 00:00:00 [facility] 6[facility] MO [facility] Influenza Virus 2018-01-25 Completed [facility] Vaccine Quad .5 mL 00:00:00 [facility] 6[facility] MO [facility] Influenza Virus 2018-01-25 Completed [facility] Vaccine Quad .5 mL 00:00:00 [facility] 6[facility] MO [facility] Influenza Virus 2018-01-25 Completed [facility] Vaccine Quad .5 mL 00:00:00 [facility] 6[facility] MO [facility] Influenza Virus 2018-01-25 Completed [facility] Vaccine Quad .5 mL 00:00:00 [facility] 6[facility] MO [facility] Influenza Virus 2018-01-25 Completed [facility] Vaccine Quad .5 mL 00:00:00 [facility] 6[facility] MO [facility] Influenza Virus 2018-01-25 Completed [facility] Vaccine Quad .5 mL 00:00:00 [facility] 6+ MO [facility] Influenza Virus 2018-01-25 Completed [facility] Vaccine Quad .5 mL 00:00:00 [facility] 6[facility] MO [facility] Influenza Virus 2018-01-25 Completed [facility] of Vaccine Quad .5 mL 00:00:00 [facility] 6[facility] MO [facility] Influenza Virus 2018-01-25 Completed [facility] Vaccine Quad .5 mL 00:00:00 [facility] 6[facility] MO [facility] Influenza Virus 2018-01-25 Completed [facility] of Vaccine Quad .5 mL 00:00:[address] [facility] 6+ MO Branch Influenza Virus 2018-01-25 Completed [facility] of Vaccine Quad .5 mL 00:00:[address] [facility] 6+ MO Branch Influenza Virus 2018-01-25 Completed [facility] of Vaccine Quad .5 mL 00:00:[address] [facility] 6+ MO Branch Influenza Virus 2018-01-25 Completed [facility] of Vaccine Quad .5 mL 00:00:[address] [facility] 6+ MO Branch Influenza Virus 2018-01-25 Completed [facility] y of Vaccine Quad .5 mL 00:00:[address] [facility] 6+ MO Branch Influenza Virus 2018-01-25 Completed [facility] y of Vaccine Quad .5 mL 00:00:[address] [facility] 6+ MO Branch Influenza Virus 2017-01-21 Completed [facility]it y of Vaccine (3+ yrs) 00:00:00 [facility] Influenza Virus 2017-01-21 Completed [facility]it y of Vaccine (3+ yrs) 00:00:00 [facility] Influenza Virus 2017-01-21 Completed [facility]it y of Vaccine (3+ yrs) 00:00:00 [facility] Influenza Virus 2017-01-21 Completed [facility]it y of Vaccine (3+ yrs) 00:00:00 [facility] Influenza Virus 2017-01-21 Completed [facility]it y of Vaccine (3+ yrs) 00:00:00 [facility] Influenza Virus 2017-01-21 Completed [facility] y of Vaccine (3+ yrs) 00:00:00 [facility] Influenza Virus 2017-01-21 Completed [facility] of Vaccine (3+ yrs) 00:00:00 [facility] Influenza Virus 2017-01-21 Completed [facility] y of Vaccine (3+ yrs) 00:00:00 [facility] Influenza Virus 2017-01-21 Completed [facility] of Vaccine (3+ yrs) 00:00:00 [facility] Influenza Virus 2017-01-21 Completed [facility] y of Vaccine (3+ yrs) 00:00:00 [facility] Influenza Virus 2017-01-21 Completed [facility] y of Vaccine (3+ yrs) 00:00:00 [facility] Influenza Virus 2017-01-21 Completed [facility] of Vaccine (3+ yrs) 00:00:00 [facility] Influenza Virus 2017-01-21 Completed [facility] y of Vaccine (3+ yrs) 00:00:00 [facility] Influenza Virus 2017-01-21 Completed [facility] of Vaccine (3+ yrs) 00:00:00 [facility] Influenza Virus 2017-01-21 Completed [facility] of Vaccine (3+ yrs) 00:00:00 [facility] Influenza Virus 2017-01-21 Completed [facility] of Vaccine (3+ yrs) 00:00:00 [facility] Influenza Virus 2017-01-21 Completed [facility] y of Vaccine (3+ yrs) 00:00:00 [facility] Influenza Virus 2017-01-21 Completed [facility] y of Vaccine (3+ yrs) 00:00:00 [facility] Influenza Virus 2017-01-21 Completed [facility] of Vaccine (3+ yrs) 00:00:00 [facility] Influenza Virus 2017-01-21 Completed [facility] of Vaccine (3+ yrs) 00:00:00 [facility] Influenza Virus 2017-01-21 Completed [facility] of Vaccine (3+ yrs) 00:00:00 [facility] Influenza Virus 2017-01-21 Completed [facility] of Vaccine (3+ yrs) 00:00:00 [facility] Influenza Virus 2017-01-21 Completed [facility] of Vaccine (3+ yrs) 00:00:00 [facility] Influenza Virus 2017-01-21 Completed [facility] of Vaccine (3+ yrs) 00:00:00 [facility] Influenza Virus 2017-01-21 Completed [facility] of Vaccine (3+ yrs) 00:00:00 [facility] Influenza Virus 2017-01-21 Completed [facility] of Vaccine (3+ yrs) 00:00:00 [facility] Influenza Virus 2017-01-21 Completed [facility] of Vaccine (3+ yrs) 00:00:00 [facility] Influenza Virus 2017-01-21 Completed [facility] of Vaccine (3+ yrs) 00:00:00 [facility] Influenza Virus 2017-01-21 Completed [facility] of Vaccine (3+ yrs) 00:00:00 [facility] Influenza Virus 2017-01-21 Completed [facility] of Vaccine (3+ yrs) 00:00:00 [facility] Influenza Virus 2017-01-21 Completed [facility]it y of Vaccine (3+ yrs) 00:00:00 [facility] dic[facility] Branch Influenza Virus 2017-01-21 Completed [facility]it y of Vaccine (3+ yrs) 00:00:00 [facility] Branch Influenza Virus 2017-01-21 Completed [facility]it y of Vaccine (3+ yrs) 00:00:00 [facility] Influenza Virus 2017-01-21 Completed [facility]it y of Vaccine (3+ yrs) 00:00:00 [facility] Branch Influenza Virus 2017-01-21 Completed [facility]it y of Vaccine (3+ yrs) 00:00:00 [facility] Branch Influenza Virus 2017-01-21 Completed [facility] of Vaccine (3+ yrs) 00:00:00 [facility] Branch Influenza Virus 2017-01-21 Completed [facility] of Vaccine (3+ yrs) 00:00:00 [facility] Branch Influenza Virus 2017-01-21 Completed [facility] of Vaccine (3+ yrs) 00:00:00 [facility] Branch Influenza Virus 2017-01-21 Completed Universit y of Vaccine (3+ yrs) 00:00:00 [facility] dicny Branch Influenza Virus 2017-01-21 Completed Universit y of Vaccine (3+ yrs) 00:00:00 [facility] Branch Influenza Virus 2017-01-21 Completed Universit y of Vaccine (3+ yrs) 00:00:00 [facility] dical Branch Influenza Virus Unknown Completed Universit y of Vaccine (3+ yrs) [facility] dical Branch Influenza Virus Unknown Completed Universit y of Vaccine Quad .5 mL [facility] IM 6+ MO Branch (FLUZONE/FLULAVAL/F LUARIX) Influenza Virus Unknown Completed Universit y of Vaccine Quad .5 mL [facility] IM 6+ MO Branch (FLUZONE/FLULAVAL/F LUARIX) Pneumococcal Unknown Completed University o f Polysaccharide, [facility] ical PPSV23 (PNEUMOVAX) Branch Influenza Virus Unknown Completed Universit y of Vaccine Quad .5 mL [facility] IM 6+ MO Branch (FLUZONE/FLULAVAL/F LUARIX) SARS-COV-2 COVID-19 Unknown Completed Unive rsity of MODERNA 12+ YRS [facility] ical VACCINE Branch SARS-COV-2 COVID-19 Unknown Completed Unive rsity of MODERNA 12+ YRS [place] [facility] VACCINE Branch SARS-COV-2 COVID-19 Unknown Completed Unive rsity of MODERNA 12+ YRS [place] [facility] VACCINE [facility] Influenza Virus Unknown Completed [facility]it y of Vaccine [facility] Influenza Virus Unknown Completed Universit y of Vaccine (3+ yrs) [facility] dical Branch Influenza Virus Unknown Completed Universit y of Vaccine Quad .5 mL [facility] IM 6+ MO Branch (FLUZONE/FLULAVAL/F LUARIX) Influenza Virus Unknown Completed Universit y of Vaccine Quad .5 mL [facility] IM 6+ MO Branch (FLUZONE/FLULAVAL/F LUARIX) Pneumococcal Unknown Completed University o f Polysaccharide, [facility] ical PPSV23 (PNEUMOVAX) Branch Influenza Virus Unknown Completed Universit y of Vaccine Quad .5 mL [facility] IM 6+ MO Branch (FLUZONE/FLULAVAL/F LUARIX) SARS-COV-2 COVID-19 Unknown Completed Unive rsity of MODERNA 12+ YRS [place] [facility] ical VACCINE Branch SARS-COV-2 COVID-19 Unknown Completed Unive rsity of MODERNA 12+ YRS [place] [facility] VACCINE Branch SARS-COV-2 COVID-19 Unknown Completed Unive rsity of MODERNA 12+ YRS [facility] ical VACCINE Branch Influenza Virus Unknown Completed Universit y of Vaccine [facility] Influenza Virus Unknown Completed Universit y of Vaccine (3+ yrs) [facility] dical Branch Influenza Virus Unknown Completed Universit y of Vaccine Quad .5 mL [facility] IM 6+ MO Branch (FLUZONE/FLULAVAL/F LUARIX) Influenza Virus Unknown Completed Universit y of Vaccine Quad .5 mL [facility] IM 6+ MO Branch (FLUZONE/FLULAVAL/F LUARIX) Pneumococcal Unknown Completed University o f Polysaccharide, [place] [facility] ical PPSV23 (PNEUMOVAX) Branch Influenza Virus Unknown Completed Universit y of Vaccine (3+ yrs) [facility] dical Branch Influenza Virus Unknown Completed Universit y of Vaccine Quad .5 mL [facility] IM 6+ MO Branch (FLUZONE/FLULAVAL/F LUARIX) Influenza Virus Unknown Completed Universit y of Vaccine Quad .5 mL [facility] IM 6+ MO Branch (FLUZONE/FLULAVAL/F LUARIX) Pneumococcal Unknown Completed University o f Polysaccharide, [place] [facility] ical PPSV23 (PNEUMOVAX) Branch Influenza Virus Unknown Completed Universit y of Vaccine Quad .5 mL [facility] IM 6+ MO Branch (FLUZONE/FLULAVAL/F LUARIX) SARS-COV-2 COVID-19 Unknown Completed Unive rsity of MODERNA 12+ YRS [place] [facility] VACCINE Branch SARS-COV-2 COVID-19 Unknown Completed Unive rsity of MODERNA 12+ YRS [place] [facility] VACCINE Branch SARS-COV-2 COVID-19 Unknown Completed Unive rsity of MODERNA 12+ YRS [place] [facility] VACCINE Branch Influenza Virus Unknown Completed [facility]it y of Vaccine [facility] Influenza Virus Unknown Completed Universit y of Vaccine (3+ yrs) [facility] dical Branch Influenza Virus Unknown Completed Universit y of Vaccine Quad .5 mL [facility] IM 6+ MO Branch (FLUZONE/FLULAVAL/F LUARIX) Influenza Virus Unknown Completed Universit y of Vaccine Quad .5 mL [facility] IM 6+ MO Branch (FLUZONE/FLULAVAL/F LUARIX) Pneumococcal Unknown Completed University o f Polysaccharide, [place] [facility] ical PPSV23 (PNEUMOVAX) Branch Influenza Virus Unknown Completed Universit y of Vaccine Quad .5 mL [facility] IM 6+ MO Branch (FLUZONE/FLULAVAL/F LUARIX) SARS-COV-2 COVID-19 Unknown Completed Unive rsity of MODERNA 12+ YRS [place] [facility] VACCINE Branch SARS-COV-2 COVID-19 Unknown Completed Unive rsity of MODERNA 12+ YRS [place] [facility] VACCINE Branch SARS-COV-2 COVID-19 Unknown Completed Unive rsity of MODERNA 12+ YRS [place] [facility] VACCINE Branch Influenza Virus Unknown Completed Universit y of Vaccine [facility] Influenza Virus Unknown Completed Universit y of Vaccine (3+ yrs) [facility] dical Branch Influenza Virus Unknown Completed Universit y of Vaccine Quad .5 mL [facility] IM 6+ MO Branch (FLUZONE/FLULAVAL/F LUARIX) Influenza Virus Unknown Completed Universit y of Vaccine Quad .5 mL [facility] IM 6+ MO Branch (FLUZONE/FLULAVAL/F LUARIX) Pneumococcal Unknown Completed University o f Polysaccharide, [place] [facility] ical PPSV23 (PNEUMOVAX) Branch Influenza Virus Unknown Completed Universit y of Vaccine Quad .5 mL [facility] IM 6+ MO Branch (FLUZONE/FLULAVAL/F LUARIX) SARS-COV-2 COVID-19 Unknown Completed Unive rsity of MODERNA 12+ YRS [place] [facility] ical VACCINE Branch SARS-COV-2 COVID-19 Unknown Completed Unive rsity of MODERNA 12+ YRS [facility] ical VACCINE Branch SARS-COV-2 COVID-19 Unknown Completed Unive rsity of MODERNA 12+ YRS [place] [facility] VACCINE Branch Influenza Virus Unknown Completed Universit y of Vaccine [facility] Influenza Virus Unknown Completed Universit y of Vaccine (3+ yrs) [facility] dical Branch Influenza Virus Unknown Completed Universit y of Vaccine Quad .5 mL [facility] IM 6+ MO Branch (FLUZONE/FLULAVAL/F LUARIX) Influenza Virus Unknown Completed Universit y of Vaccine Quad .5 mL [facility] IM 6+ MO Branch (FLUZONE/FLULAVAL/F LUARIX) Pneumococcal Unknown Completed University o f Polysaccharide, [facility] ical PPSV23 (PNEUMOVAX) Branch Influenza Virus Unknown Completed Universit y of Vaccine Quad .5 mL [facility] IM 6+ MO Branch (FLUZONE/FLULAVAL/F LUARIX) SARS-COV-2 COVID-19 Unknown Completed Unive rsity of MODERNA 12+ YRS [place] [facility] VACCINE Branch SARS-COV-2 COVID-19 Unknown Completed Unive rsity of MODERNA 12+ YRS [facility] ical VACCINE Branch SARS-COV-2 COVID-19 Unknown Completed Unive rsity of MODERNA 12+ YRS [facility] ical VACCINE Branch Influenza Virus Unknown Completed Universit y of Vaccine [facility] Influenza Virus Unknown Completed Universit y of Vaccine (3+ yrs) [facility] dical Branch Influenza Virus Unknown Completed Universit y of Vaccine Quad .5 mL [facility] IM 6+ MO Branch (FLUZONE/FLULAVAL/F LUARIX) Influenza Virus Unknown Completed Universit y of Vaccine Quad .5 mL [facility] IM 6+ MO Branch (FLUZONE/FLULAVAL/F LUARIX) Pneumococcal Unknown Completed University o f Polysaccharide, [facility] ical PPSV23 (PNEUMOVAX) Branch Influenza Virus Unknown Completed Universit y of Vaccine Quad .5 mL [facility] IM 6+ MO Branch (FLUZONE/FLULAVAL/F LUARIX) SARS-COV-2 COVID-19 Unknown Completed Unive rsity of MODERNA 12+ YRS [place] [facility] ical VACCINE Branch SARS-COV-2 COVID-19 Unknown Completed Unive rsity of MOD[place]NA 12+ YRS [place] [facility] VACCINE Branch SARS-COV-2 COVID-19 Unknown Completed Unive rsity of MODERNA 12+ YRS [place] [facility] VACCINE Branch Influenza Virus Unknown Completed Universit y of Vaccine [facility] Vital Signs Vital Name Observation Time Observation Value Comments Source Systolic blood 2022-11-18 13:42:00 121 mm[Hg] Univer sity of pressure [facility] Diastolic blood 2022-11-18 13:42:00 79 mm[Hg] Unive rsity of pressure [facility] Heart rate 2022-11-18 13:42:00 78 /min Universi ty of [facility] Body temperature 2022-11-18 13:41:00 36.17 Lisseth Univ ersity of [facility] Respiratory rate 2022-11-18 13:41:00 20 /min Univ ersity of [facility] Body height 2022-11-18 13:41:00 157.5 cm Universi ty of [facility] Body weight 2022-11-18 13:41:00 81.285 kg Universi ty of [facility] BMI 2022-11-18 13:41:00 32.78 kg/m2 Universi ty of [facility] Oxygen saturation in 2022-11-18 13:41:00 97 /min [facility] Arterial blood by [facility] Pulse oximetry Branch Systolic blood 2022-11-11 21:59:00 132 mm[Hg] Univer sity of pressure [facility] Diastolic blood 2022-11-11 21:59:00 88 mm[Hg] Unive rsity of pressure [facility] Heart rate 2022-11-11 21:59:00 78 /min Universi ty of [facility] Body temperature 2022-11-11 21:59:00 36.94 Lisseth Univ ersity of [facility] Respiratory rate 2022-11-11 21:59:00 17 /min Univ ersity of [facility] Body height 2022-11-11 21:59:00 160 cm Universi ty of [facility] Body weight 2022-11-11 21:59:00 82.555 kg Universi ty of [facility] BMI 2022-11-11 21:59:00 32.24 kg/m2 [facility] ty of [facility] Oxygen saturation in 2022-11-11 21:59:00 98 /min University of Arterial blood by [place] [facility] Pulse oximetry Branch Systolic blood 2022-11-08 21:29:00 118 mm[Hg] Univer sity of pressure [facility] Diastolic blood 2022-11-08 21:29:00 88 mm[Hg] Unive rsity of pressure [facility] Heart rate 2022-11-08 21:29:00 93 /min Universi ty of [facility] Body temperature 2022-11-08 21:29:00 37 Lisseth Univ ersity of [facility] Body weight 2022-11-08 21:29:00 80.74 kg Universi ty of [facility] BMI 2022-11-08 21:29:00 32.56 kg/m2 [facility] Oxygen saturation in 2022-11-08 21:29:00 98 /min University of Arterial blood by [facility] Pulse oximetry Branch Systolic blood 2022-08-13 21:12:00 118 mm[Hg] Univer sity of pressure [facility] Diastolic blood 2022-08-13 21:12:00 82 mm[Hg] Unive rsity of pressure [facility] Heart rate 2022-08-13 21:12:00 80 /min [facility]i ty [facility] Body temperature 2022-08-13 21:12:00 36.11 Lisseth Univ ersity of [facility] Body height 2022-08-13 21:12:00 157.5 cm [facility]i ty [facility] Body weight 2022-08-13 21:12:00 93.486 kg [facility] BMI 2022-08-13 21:12:00 37.70 kg/m2 [facility] [place] [facility] Oxygen saturation in 2022-08-13 21:12:00 98 /min University of Arterial blood by [place] [facility] Pulse oximetry Branch Systolic blood 2022-06-02 14:56:00 113 mm[Hg] Univer sity of pressure [facility] Diastolic blood 2022-06-02 14:56:00 68 mm[Hg] Unive rsity of pressure [facility] Heart rate 2022-06-02 14:56:00 82 /min [facility]i ty [facility] Body temperature 2022-06-02 14:54:00 36 Lisseth Univ ersity of [facility] Body height 2022-06-02 14:54:00 160 cm [facility] Body weight 2022-06-02 14:54:00 92.579 kg [facility]i [facility] BMI 2022-06-02 14:54:00 36.15 kg/m2 [facility] Oxygen saturation in 2022-06-02 14:54:00 100 /min University of Arterial blood by [place] [facility] Pulse oximetry Branch Systolic blood 2022-04-30 00:46:00 119 mm[Hg] Univer sity of pressure [facility] Diastolic blood 2022-04-30 00:46:00 77 mm[Hg] Unive rsity of pressure [facility] Heart rate 2022-04-30 00:46:00 94 /min Universi ty [facility] Body temperature 2022-04-30 00:46:00 36.78 Lisseth Univ ersity of [facility] Respiratory rate 2022-04-30 00:46:00 18 /min Univ ersity of [facility] Body height 2022-04-30 00:46:00 160 cm [facility] Body weight 2022-04-30 00:46:00 87.998 kg [facility] BMI 2022-04-30 00:46:00 34.37 kg/m2 [facility] Oxygen saturation in 2022-04-30 00:46:00 98 /min University of Arterial blood by [place] [facility] Pulse oximetry Branch Systolic blood 2022-03-11 14:41:00 116 mm[Hg] Univer sity of pressure [facility] Diastolic blood 2022-03-11 14:41:00 78 mm[Hg] Unive rsity of pressure [facility] Heart rate 2022-03-11 14:41:00 85 /min [facility]i ty of [facility] Body temperature 2022-03-11 14:41:00 36.39 Lisseth Univ ersity of [facility] Respiratory rate 2022-03-11 14:41:00 18 /min Univ ersity of [facility] Body height 2022-03-11 14:41:00 160 cm [facility]i [facility] Body weight 2022-03-11 14:41:00 92.307 kg [facility] BMI 2022-03-11 14:41:00 36.05 kg/m2 [facility] [place] [facility] Oxygen saturation in 2022-03-11 14:41:00 98 /min University of Arterial blood by [facility] Pulse oximetry Branch Systolic blood 2022-02-06 22:08:00 148 mm[Hg] Univer sity of pressure [facility] Diastolic blood 2022-02-06 22:08:00 86 mm[Hg] Unive rsity of pressure [facility] Heart rate 2022-02-06 22:06:00 82 /min Universi ty of [facility] Body temperature 2022-02-06 22:06:00 36.89 Lisseth Univ ersity of [facility] Respiratory rate 2022-02-06 22:06:00 18 /min Univ ersity of [facility] Body height 2022-02-06 22:06:00 160 cm [facility]i [facility] Body weight 2022-02-06 22:06:00 93.441 kg [facility] BMI 2022-02-06 22:06:00 36.49 kg/m2 [facility] Oxygen saturation in 2022-02-06 22:06:00 100 /min University of Arterial blood by [facility] Pulse oximetry Branch Systolic blood 2022-02-01 16:41:00 119 mm[Hg] Univer sity of pressure [facility] Diastolic blood 2022-02-01 16:41:00 76 mm[Hg] Unive rsity of pressure [facility] Heart rate 2022-02-01 16:41:00 83 /min [facility] Body temperature 2022-02-01 16:41:00 36.83 Lisseth Univ ersity of [facility] Respiratory rate 2022-02-01 16:41:00 16 /min Univ ersity of [facility] Body weight 2022-02-01 16:41:00 91.173 kg [facility] BMI 2022-02-01 16:41:00 35.61 kg/m2 [facility] Oxygen saturation in 2022-02-01 16:41:00 97 /min University of Arterial blood by [facility] Pulse oximetry Branch Systolic blood 2021-12-29 18:12:00 112 mm[Hg] Univer sity of pressure [facility] Diastolic blood 2021-12-29 18:12:00 74 mm[Hg] Unive rsity of pressure [facility] Heart rate 2021-12-29 18:12:00 85 /min Universi ty of [facility] Body temperature 2021-12-29 18:12:00 37.33 Lisseth [facility] 2021-12-29 18:12:00 20 /min [facility] Body height 2021-12-29 18:12:00 160 cm Universi ty of [facility] Body weight 2021-12-29 18:12:00 89.812 kg Universi ty of [facility] BMI 2021-12-29 18:12:00 35.07 kg/m2 Universi ty of [facility] Oxygen saturation in 2021-12-29 18:12:00 98 /min University of Arterial blood by [facility] Pulse oximetry Branch Systolic blood 2021-11-06 21:34:00 111 mm[Hg] Univer sity of [facility] Diastolic blood 2021-11-06 21:34:00 77 mm[Hg] Unive rsity of pressure [facility] Heart rate 2021-11-06 21:34:00 105 /min Universi ty of [facility] Respiratory rate 2021-11-06 21:34:00 18 /min [facility] Body weight 2021-11-06 21:34:00 91.173 kg Universi ty [facility] BMI 2021-11-06 21:34:00 35.61 kg/m2 Universi ty of [facility] Oxygen saturation in 2021-11-06 21:34:00 95 /min University of Arterial blood by [facility] beth Pulse oximetry Branch Procedures Procedure Date / Time Performed Performing Clinician Sukhjinder rocha POCT MOLECULAR FLU 2022-11-08 21:37:00 Unknown, Attending [facility] POCT MOLECULAR STREP 2022-11-08 21:33:00 Unknown, Attending [facility] PHOSPHORUS 2022-05-31 15:45:[address] [facility] MAGNESIUM 2022-05-31 15:45:[address] [facility] BASIC METABOLIC PANEL 2022-05-31 15:45:00 Isaias Meza [facility] (NA, K, CL, CO2, Medical Branch GLUCOSE, BUN, CREATININE, CA) CBC WITHOUT DIFF 2022-05-31 15:45:00 Melody Borja [facility] INTACT PTH CALCIUM 2022-05-31 15:45:00 Melody Borja [facility] POCT MOLECULAR FLU 2022-04-30 00:49:00 Unknown, Attending [facility] POCT MOLECULAR STREP 2022-04-30 00:45:00 Unknown, Attending [facility] ASSIGNMENT OF BENEFITS 2022-04-30 00:35:25 Doctor Unassigned, No [facility] POCT MOLECULAR FLU 2022-02-01 17:03:00 Unknown, Attending [facility] POCT MOLECULAR STREP 2022-02-01 16:46:00 Unknown, Attending [facility] POCT URINALYSIS 2021-12-29 00:00:00 Michael [facility] Encounters Start End Encounter Admission Attending Care Care Encounter Source Date/Time Date/Time Type Type Clinicians Facility Department ID 2023-01-16 2023-01-16 Outpatient R CROW [facility] [id number] [facility] 15:20:00 15:20:00 ISAIAS [facility] 2023-01-15 2023-01-15 Telephone [facility] 1.2.840.114 [id number] Univers 00:00:00 00:00:00 Isaias PINED[place] 350.1.13.10 [id number] [phone] Mo dical NAL 044 [facility] 2023-01-13 2023-01-13 Telephone [facility] 1.2.840.114 [id number] Univers 00:00:00 00:00:00 Isaias PINEDA 350.1.13.10 [id number] [phone] Mo dical NAL 044 [facility] 2023-01-06 2023-01-06 [facility] 1.2.840.114 [id number] Univers 00:00:00 00:00:00 Isaias PINEDA 350.1.13.10 i ty [facility] [id number] [phone] Mo dical NAL 044 [facility] 2022-12-09 2022-12-09 [facility] 1.2.840.114 [id number] Univers 00:00:00 00:00:00 Isaias PINEDA 350.1.13.10 i ty [facility] [id number] [phone] Mo dical NAL 044 [facility] 2022-11-18 2022-11-18 Apartment Maintenance Worker 2, Adc Lab [facility] 1.2.840.114 [id number] Univers 09:15:00 09:18:42 Visit Isaias Meza 350.1.13.10 ity [facility] [id number] [phone] Mo dical NAL 353 [facility] 2022-11-18 2022-11-18 Outpatient R CROW [facility] [id number] Univers 08:40:00 09:11:27 ISAIAS dior [facility] 2022-11-18 2022-11-[address] [facility] 1.2.840.114 [id number] [facility] 08:40:00 09:11:27 Visit Isaias PINEDA 350.1.13.10 i ty [facility] [id number] [phone] Mo dical NAL 044 [facility] 2022-11-13 2022-11-13 [facility] 1.2.840.114 [id number] Univers 00:00:00 00:00:00 Isaias PINEDA 350.1.13.10 i ty [facility] [id number] [phone] Mo dical NAL 044 [facility] 2022-11-11 2022-11-11 [facility] [id number] Univers 17:00:00 17:23:25 REENU ity [facility] 2022-11-11 2022-11-11 Urgent Mere Soloriojoo [facility] 1.2.840.11 [id number] Univers 17:00:00 17:23:25 Care Unknown, Attending HEALTH 350.1.13.10 ity of [place] [id number] Son as RAQUEL?BLEA [phone] [address] MEDICAL OFFICE [facility] 2022-11-11 2022-11-11 Letter Tevin [facility] ..[id number] Univers 00:00:00 00:00:00 (Out) ReeAdena [facility] 350.1.13.10 it y of [place] [id number] Son as RAQUEL?BLEA [phone] [address] OFFICE [facility] 2022-11-09 2022-11-09 Letter WIL Fallon 1..840.114 [id number] [facility] Univers 00:00:00 00:00:00 (Out) Brittani BARBA 350.1.13.10 it y of [facility] 4.2.7.2.686 Son as [id number] [address] 2022-11-08 2022-11-08 Outpatient R FLORA [facility] [id number] Univers 16:00:00 17:13:19 NGUYỄN itharvinder [facility] 2022-11-08 2022-11-08 Urgent Nguyễn Hines [facility] .2.840.11 [id number] Univers 16:00:00 16:20:00 Care Unknown, Attending HEALTH 350.1.13.10 ity of [place] [id number] Son as RAQUEL?BLEA [phone] [address] MEDICAL OFFICE [facility] 2022-10-09 2022-10-09 Doni Meza [facility] 1.2.840.114 [id number] Univers 00:00:00 00:00:00 Isaias PINEDA 350.1.13.10 [id number] [phone] Mo dical NAL [address] [place] [address] 2022-09-25 2022-09-25 Refill [facility] 12.840.114 [id number] Univers 00:00:00 00:00:00 Isaias PINEDA 350.1.13.10 [place] [phone] Mo dical NAL [address] [place] [address] 2022-09-07 2022-09-07 Refill [facility] 1.2.840.114 [id number] Univers 00:00:00 00:00:00 Isaias PINEDA 350.1.13.10 [place] [id number] [address] 2022-08-13 2022-08-13 Outpatient R [facility] [id number] [facility] 16:00:00 16:42:36 ISAIAS dior [facility] 2022-08-13 2022-08-13 Office [facility] 1.2.840.114 [id number] [facility] 16:00:00 16:42:36 Visit Isaias PINEDA 350.1.13.10 [id number] [phone] Mo dicny NAL [address] [place] [address] 2022-07-28 2022-07-28 Refill [facility] 1.2.840.114 [id number] Univers 00:00:00 00:00:00 Isaias PINEDA 350.1.13.10 [place] [phone] Mo dical NAL [address] [place] [address] 2022-06-18 2022-06-18 Refill [facility] 1.2.840.114 [id number] Univers 00:00:00 00:00:00 Isaias PINEDA 350.1.13.10 i ty [facility] [id number] [id number] Mo dic[address] 2022-06-16 2022-06-16 Outpatient R JONH [facility] [id number] Univers 00:00:00 00:00:00 MELODY dior [facility] 2022-06-09 2022-06-09 [facility] 1.2.840.114 [id number] Univers 00:00:00 00:00:00 Isaias PINEDA 350.1.13.10 i ty [place] [phone] [address] 2022-06-08 2022-06-[facility] 1.2.840.114 [id number] Univers 00:00:00 00:00:00 Isaias PINEDA 350.1.13.10 i [place] [phone] [address] [address] 2022-06-08 2022-06-08 [facility] 1.2.840.114 [id number] Univers 00:00:00 00:00:00 Isaias PINEDA 350.1.13.10 i ty of [facility] [place] [id number] [address] 2022-06-02 2022-06-02 Outpatient R JONH [facility] [id number] Univers 10:00:00 10:29:15 MELODY dior [facility] 2022-06-02 2022-06-02 Office [facility] 1.2.616.526 [id number] Univers 10:00:00 10:29:15 Visit Melody JEFF 350.1.13.10 ity of [place] C[place] [phone] [facility] AND [address] [facility]AB[facility]ES CL[facility]IC 2022-05-31 2022-05-31 Apartment Maintenance Worker Juan M, Adc Lab Main [facility] 1.2.8 40.114 [id number] Univers 09:30:00 09:45:00 Visit Melody Borja 350.1.13.10 ity of [place] 4.2.7.2.[place] [phone] Mo dical NAL [address] BUILDING 2022-05-31 2022-05-31 Outpatient R JONH [facility] [id number] Univers 09:30:00 09:30:00 MELODY ity of [facility] 2022-05-23 2022-05-23 Telephone Jonh [facility] 1.2.840.114 [id number] Univers 00:00:00 00:00:00 Melody PEREZPEC 350.1.13.10 ity of [facility] 4.2.7.2.[place] [phone] [facility] AND [place] [address] [facility] 2022-04-29 2022-04-29 Urgent Nicolasa Solorio [facility] 1.2.840.11 [id number] Univers 18:40:00 19:00:00 Care Unknown, Attending [facility] 350.1.13.10 ity of [facility] 4.2.7.2.686 Son as RAQUEL?BLEA [phone] Mo dicny KNEY [address] MEDICAL OFFICE BUILDING 2022-04-29 2022-04-29 Outpatient R UNKNOWN, ATTENDING [facility] [id number] Univers 18:40:00 18:40:00 NICOLASA SOLORIO ity of [facility] 2022-04-29 2022-04-29 Orders Doctor WIL 1.2.840.114 [id number] Univers 00:00:00 00:00:00 Only Unassigned, JAMESON 350.1.13.10 ity of [place] [facility] 4.2.7.2.686 Son as [phone] [facility] [address] 2022-04-20 2022-04-20 Refnanci [facility]NEW [facility] 1.2.840.114 [id number] Univers 00:00:00 00:00:00 Isaias PINEDA 350.1.13.10 i ty of [place] 4.2.7.2.[place] [phone] Mo dical NAL [address] BUILDING 2022-04-12 2022-04-12 Refill [facility]NEW [facility] 1.2.840.114 [id number] Univers 00:00:00 00:00:00 Isaias PINEDA 350.1.13.10 i ty of [place] 4.2.7.2.[place] [phone] Mo dical NAL 044 [facility] 2022-04-09 2022-04-09 Refill [facility] 1.2.840.114 [id number] Univers 00:00:00 00:00:00 Isaias PINEDA 350.1.13.10 i ty of [place] 4.2.7.2.[place] [phone] Mo dical NAL 044 [facility] 2022-03-14 2022-03-14 Patient Doctor WIL 1.2.840.114 [id number] Univers 00:00:00 00:00:00 Secure Msg Unassigned, JAMESON 350.1.13.[address] [facility] 4.2.7.2.686 Son as [phone] [address] 2022-03-11 2022-03-11 [facility] [id number] Univers 08:40:00 09:29:02 ISAIAS [facility] 2022-03-11 2022-03-11 Office [facility] 1.2.840.114 [id number] Univers 08:40:00 09:29:02 Visit Isaias EDWIN 350.1.13.10 i ty of [place] 4.2.7.2.[place] [phone] Mo dical NAL 044 [facility] 2022-03-04 2022-03-04 Apartment Maintenance Worker 2, Adc Lab [facility] 1.2.840.114 [id number] Univers 08:15:00 08:30:00 Visit Isaias Meza 350.1.13.10 ity of [place] 4.2.7.2.[place] [phone] [facility] 353 [facility] 2022-03-04 2022-03-04 [facility] [id number] Univers 08:15:00 08:15:00 ISAIAS harvinder [facility] 2022-02-28 2022-02-28 Refill [facility] 1.2.840.114 [id number] Univers 00:00:00 00:00:00 Isaias PINEDA 350.1.13.10 i ty of [place] 4.2.7.2.[place] [id number] [address] 2022-02-06 2022-02-06 [facility] [id number] [id number] Univers 16:00:00 16:37:08 ISAIAS itharvinder [facility] 2022-02-06 2022-02-06 Office [facility] 1.2.840.114 [id number] Univers 16:00:00 16:37:08 Visit Isaias PINEDA 350.1.13.10 i ty of [place] 4.2.7.2.[place] [phone] [address] 2022-02-01 2022-02-01 Outpatient R GINA [facility] [id number] Univers 10:20:00 11:18:46 RANIA ity [facility] 2022-02-01 2022-02-01 [facility] 1.2.840.114 [id number] Univers 10:20:00 11:18:46 Care Unknown, [facility]ALTH 350.1.13.10 ity of [place] 4.2.7.2.686 Son as RAQUEL?BLEA [phone] [address] OFFICE [facility] 2022-02-01 2022-02-01 Letter Provider, [facility] 1.2.018.734 [id number] Univers 00:00:00 00:00:00 (Out) [facility] 350.1.13.10 it y of Urgent Care [place] 4.2.7.2.686 [place] RAQUEL?BLEA [id number] [address] OFFICE [facility] 2022-01-01 2022-01-01 Refill [facility] 1.2.840.114 [id number] Univers 00:00:00 00:00:00 Isaias PINEDA 350.1.13.10 i ty of [place] 4.2.[place].2.[place] [id number] Me dical NAL 044 [facility] 2021-12-29 2021-12-29 Outpatient R CHANI [facility] [id number] Univers 13:20:00 14:01:53 RAMILA dior o f [facility] 2021-12-29 2021-12-29 Urgent Ramila Gomez [facility] 1.2.840 .114 [id number] Univers 13:20:00 13:40:00 Care Unknown, Attending HEALTH 350.1.13.10 ity josias [facility] 4.2.7.2.686 Son as RAQUEL?BLEA [phone] Mo dical KNEY 370 [facility] OFFICE BUILDING 2021-12-04 2021-12-04 [facility] [id number] Univers 08:30:00 08:30:00 ISAIAS dior [facility] 2021-12-04 2021-12-04 Apartment Maintenance Worker 2, Adc Lab [facility] 1.2.840.114 [id number] Univers 08:30:00 08:30:00 Visit Isaias Meza 350.1.13.10 ity [facility] 4.2.7.2.[place] [phone] Mo dical NAL 353 [facility] 2021-12-04 2021-12-04 Outpatient EL Referred, HCAPM ALFREDO [id number] [facility] 08:00:00 08:00:00 Self 68 [facility] 2021-11-06 2021-11-06 Office [facility] 1.2.840.114 [id number] Univers 16:20:00 17:15:32 Visit Isaias PINEDA 350.1.13.10 i ty of [facility] 4.2.7.2.[place] [phone] Mo dical NAL 044 [facility] 2021-11-06 2021-11-06 [facility] [id number] Univers 16:20:00 17:15:32 ISAIAS dior [facility] 2021-11-06 2021-11-06 [facility] [id number] [id number] Univers 16:20:00 16:20:00 ISAIAS dior [facility] 2021-09-20 2021-09-20 Outpatient R CROW [facility] [id number] Univers 15:40:00 15:40:00 ISAIAS dior [facility] 2021-09-20 2021-09-20 Outpatient R CROW [facility] [id number] Univers 09:20:00 09:20:00 ISAIAS dior [facility] 2021-09-02 2021-09-02 Outpatient R SHAUN, [facility] [id number] Univers 08:00:00 08:00:00 BUDDY dior [facility] 2021-09-02 2021-09-02 Outpatient R SHAUN, [facility] [id number] Univers 08:00:00 08:00:00 BUDDY harvinder [facility] 2021-07-12 2021-07-12 [facility] ..840.114 [id number] Univers 00:00:00 00:00:00 Isaias PINEDA 350.1.13.10 i ty of [place] 4.2.7.2.[place] [phone] Mo dic[address] 2021-06-14 2021-06-14 Outpatient R ELIZABETHAKIN [facility] [id number] Univers 16:00:00 16:50:54 ISAIAS dior [facility] 2021-06-14 2021-06-14 Office [facility] ..840.114 [id number] Univers 16:00:00 16:50:54 Visit Isaias PINEDA 350.1.13.10 i ty of [facility] 4.2.7.2.[place] [phone] Mo dical NAL [address] [place] [address] 2021-04-14 2021-04-14 Refnanci MezaNEW [facility] 1.2.840.114 [id number] Univers 00:00:00 00:00:00 Isaias PINEDA 350.1.13.10 i ty of [facility] 4.2.7.2.[place] [phone] Mo dical NAL 044 [facility] 2021-03-14 2021-03-14 Outpatient R CROW [facility] [id number] Univers 13:20:00 14:14:48 ISAIAS ovi [facility] 2021-03-14 2021-03-14 Office [facility] 1.2.840.114 [id number] [facility] 13:20:00 14:14:48 Visit Isaias PINEDA 350.1.13.10 i ty of [place] 4[place]2.[place].2.[place] [id number] Mo dical NAL 044 [facility] 2021-01-23 2021-01-23 Refill [facility] 1.2.840.114 [id number] Univers 00:00:00 00:00:00 Isaias PINEDA 350.1.13.10 i ty of [place] 4.2.7.2.[place] [phone] Mo saleem [facility] 231 [facility] 2020-12-14 2020-12-14 Refill [facility] 1.2.840.114 [id number] Univers 00:00:00 00:00:00 Isaias Pineda 350.1.13.10 i ty of [place] 4.2.7.2.[place] [phone] Mo dical nal [address] [place] [address] 2020-09-19 2020-09-19 [facility] [id number] Univers 16:20:00 16:20:00 ISAIAS ovi [facility] 2020-09-13 2020-09-13 [facility] 1.2.840.114 [id number] Univers 00:00:00 00:00:00 Isaias Pineda 350.1.13.10 i ty of [place] 4.2.7.2.[place] [phone] Mo dical nal 044 [facility] 2020-09-02 2020-09-02 [facility]NEW [facility] 1.2.840.114 [id number] Univers 00:00:00 00:00:00 Isaias Pineda 350.1.13.10 i ty of [place] 4.2.[place].2.[place] [phone] Mo dical nal 044 [facility] 2020-08-01 2020-08-01 Refill [facility] 1.2.840.114 [id number] Univers 00:00:00 00:00:00 Isaias Pineda 350.1.13.10 i ty of [place] 4.2.[place].2.[place] [phone] Mo dical nal 044 [facility] 2020-07-06 2020-07-06 Refill [facility] 1.2.840.114 [id number] Univers 00:00:00 00:00:00 Isaias Pineda 350.1.13.10 i ty of [place] 4.2.7.2.[place] [phone] Mo dical nal 044 [facility] 2020-07-03 2020-07-03 Orders Doctor WIL 1.2.840.114 [id number] Univers 00:00:00 00:00:00 Only Unassigned, JAEMSON 350.1.13.10 ity of [place] [facility] 4.2.7.2.686 Son as [phone] [address] 2020-07-02 2020-07-02 Apartment Maintenance Worker 2, Adc Lab [facility] 1.2.840.114 [id number] Univers 10:27:44 10:42:44 Visit Isaias Meza 350.1.13.10 ity of [place] 4.2.7.2.[place] [phone] Mo dical nal 353 [facility] 2020-07-02 2020-07-02 Office Brittani, [facility] 1.2.840.114 [id number] Univers 09:34:42 10:03:39 Visit Emerson Pineda 350.1.13.10 ity of [place] 4.2.7.2.[place] [phone] Mo dical nal 044 [facility] 2020-07-02 2020-07-02 Outpatient R BRITTANI [facility] [id number] Univers 09:30:00 09:30:00 EMERSON dior toro teresa [facility] 2020-07-02 2020-07-02 Telephone [facility] 12.840.114 [id number] Univers 00:00:00 00:00:00 Isaias Pineda 350.1.13.10 i ty of [place].2.[place] [phone] Mo dical [address] 2020-07-02 2020-07-02 Telephone [facility] 1.2.840.114 [id number] Univers 00:00:00 00:00:00 Isaias Pineda 350.1.13.10 i ty of [place] 4.2.[place].2.[place] [phone] [address] 2020-06-20 2020-06-20 Office [facility] 1.2.840.114 [id number] Univers 16:10:28 16:59:13 Visit Isaias Pineda 350.1.13.10 i ty of [place] 4.2.7.2.[place] [phone] [address] 2020-06-20 2020-06-20 [facility] [id number] Univers 16:00:00 16:00:00 ISAIAS dior [facility] 2020-06-07 2020-06-07 Patient Sar[facility]NEW [facility] 1.2.840.114 [id number] Univers 00:00:00 00:00:00 Outreach Geoffrey PRIMARY 350.1.13.10 i ty of Ones[place] [facility] 4.2.7.2.[place] [id number] [address] 2020-05-17 2020-05-17 Refill CrowNEW [facility] 1.2.840.114 [id number] Univers 00:00:00 00:00:00 Isaias Pineda 350.1.13.10 i ty of [place] 4[place].2.[place] [phone] Mo dic[address] 2020-05-04 2020-05-04 Refill [facility] 1.2.840.114 [id number] Univers 00:00:00 00:00:00 Isaias Pineda 350.1.13.10 i ty of [place] 4.2.[place].2.[place] 140.9812111 Mo dic[address] 2020-04-04 2020-04-04 Patient [facility] 1.2.840.114 [id number] Univers 00:00:00 00:00:00 Secure Msg Isaias Pineda 350.1.13.10 ity of [place] 4.2.7.2.[place] 038.4787149 Mo dic[address] 2020-03-22 2020-03-22 Office [facility] 1.2.840.114 [id number] Univers 13:42:21 14:36:05 Visit Isaias Pineda 350.1.13.10 i ty of [place] 4.2.7.2.[place] [phone] [address] 2020-03-22 2020-03-22 Outpatient [facility] [id number] Univers 13:40:00 13:40:00 ISAIAS dior [facility] 2020-03-01 2020-03-01 Refill [facility] 1.2.840.114 [id number] Univers 00:00:00 00:00:00 , Wil JEFF 350.1.13.10 ity of [facility] 4.2.7.2.[place] [phone] [facility] [place] [address] [facility] 2020-02-28 2020-02-28 Outpatient R JONH [facility] [id number] Univers 14:30:00 14:30:00 MELODY dior [facility] 2020-02-27 2020-02-[address] [facility] [id number] Univers 13:00:00 13:00:00 , WIL dior [facility] 2020-02-20 2020-02-20 Telephone [facility] 1.2.840.114 [id number] Univers 00:00:00 00:00:00 , Wil JEFF 350.1.13.10 [place]2.[place] C[place] [phone] [facility] AND [address] DIABETES CLINIC 2020-01-31 2020-01-31 Refill [facility] 1.2.840.114 [id number] Univers 00:00:00 00:00:00 Isaias Pineda 350.1.13.10 i ty of [place] 4.2.7.2.[place] [phone] Mo dical nal 044 [facility] 2020-01-27 2020-01-27 [facility] 1.2.840.114 [id number] Univers 00:00:00 00:00:00 Isaias Pineda 350.1.13.10 i ty of [place] 4[place]2.[place].2.[place] [phone] Mo dical nal 231 [facility] 2019-12-26 2019-12-26 Outpatient R BADDIORENTI [facility] [id number] Univers 10:30:00 10:30:00 , WIL dior [facility] 2019-12-21 2019-12-21 Outpatient R CROW [facility] [id number] Univers 09:15:00 09:15:00 ISAIAS dior [facility] 2019-12-21 2019-12-21 Apartment Maintenance Worker 2, Adc Lab [facility] 1.2.840.114 [id number] Univers 08:31:28 08:46:28 Visit Isaias Meza 350.1.13.10 ity of [place] 4.2.7.2.[place] [phone] Mo dical [facility] 353 [facility] 2019-12-21 2019-12-21 Telephone [facility]NEW [facility] 1.2.840.114 [id number] Univers 00:00:00 00:00:00 Isaias Pineda 350.1.13.10 i ty of [place] 4[place]2.7.2.[place] [phone] Mo dical nal 044 [facility] 2019-12-21 2019-12-21 Telephone [facility] 1.2.840.114 [id number] Univers 00:00:00 00:00:00 Isaias Pineda 350.1.13.10 i ty of [place] 4.2.7.2.[place] [phone] [address] 2019-12-13 2019-12-13 Telephone Shira [facility] 1.2.840.114 [id number] Univers 00:00:00 00:00:00 , Wil JEFF 350.1.13.10 ity of [facility] 4.2.7.2.[place] [phone] [facility] AND [address] DIABETES CLINIC 2019-12-07 2019-12-07 Office [facility] 1.2.840.114 [id number] Univers 16:17:03 17:04:47 Visit Isaias Pineda 350.1.13.10 i ty of [place] 4.2.7.2.[place] [phone] [address] 2019-12-07 2019-12-07 Outpatient R [facility]ERVIEW [facility] [id number] Univers 16:20:00 16:20:00 ISAIAS dior of [facility] 2019-11-02 2019-11-02 Refill [facility] 1.2.840.114 [id number] Univers 00:00:00 00:00:00 Isaias Pineda 350.1.13.10 i ty of [place] 4[place]2.[place].2.[place] [phone] [address] 2019-10-12 2019-10-12 Patient Doctor WIL 1.2.840.114 [id number] Univers 00:00:00 00:00:00 Secure Msg Unassigned, JAMESON 350.1.13.10 ity [facility] 4.2.7.2.686 Son as [phone] [address] 2019-09-22 2019-09-22 Refill [facility] 1.2.840.114 [id number] Univers 00:00:00 00:00:00 Isaias Pineda 350.1.13.10 i ty of [place] 4.2.7.2.[place] [phone] [address] 2019-08-30 2019-08-30 [facility] [id number] Univers 10:00:00 10:00:00 ISAIAS dior [facility] 2019-08-30 2019-08-30 Orders Doctor WIL 1.2.840.114 [id number] Univers 00:00:00 00:00:00 Only Unassigned, JAMESON 350.1.13.10 [facility]y [facility] 4.2.7.2.686 Son as [phone] [address] 2019-06-15 2019-07-20 Telemedici [facility] 1.2.840.114 [id number] Univers 07:48:37 22:26:24 ne Visit Isaias Pineda 350.1.13.10 ity of [place] 4.2.[place].2.[place] [phone] [address] 2019-06-15 2019-06-15 Outpatient [facility]ERVIEW [facility] [id number] [id number] Univers 15:40:00 15:40:00 ISAIAS dior [facility] 2019-06-12 2019-06-12 [facility] 1.2.840.114 [id number] Univers 00:00:00 00:00:00 Isaias Pineda 350.1.13.10 i ty of [place] 4[place].2.[place] [phone] [address] 2019-05-26 2019-05-26 Refill [facility] 1.2.840.114 [id number] Univers 00:00:00 00:00:00 Isaias Pineda 350.1.13.10 i ty of [place] 4[place].2.[place] [phone] [address] 2019-05-22 2019-05-22 Urgent GreenEsperanza [facility] 1.2.840.114 [id number] Univers 15:10:07 15:25:07 Care Unknown, Attending Health 350.1.13.10 ity of Surgical 4.2.7.2.686 Son as Specialti [phone] Mo dical es 370 [facility] 2019-05-22 2019-05-22 Outpatient R UNKNOWN, [facility] [id number] Univers 15:00:00 15:00:00 ATTENDING ity of [facility] 2019-05-22 2019-05-22 [facility] 1.2.840.114 [id number] Univers 00:00:00 00:00:00 Isaias Pineda 350.1.13.10 i ty of [place] 4[place].2.[place] [phone] Mo dical nal 044 [facility] 2019-04-21 2019-04-21 [facility] 1.2.840.114 [id number] Univers 00:00:00 00:00:00 Isaias Pineda 350.1.13.10 i ty of [place] 4[place].2.[place] 329.2668746 Mo dical nal 044 [facility] 2019-04-20 2019-04-20 [facility] ALFRED[facility] [id number] 441 [facility] 12:00:00 12:00:00 Saskia [facility] 2019-04-15 2019-04-15 [facility] 1.2.840.114 [id number] Univers 00:00:00 00:00:00 Isaias Pineda 350.1.13.10 i ty of [place] 4.2.7.2.[place] 553.5893361 Mo dical nal 044 [facility] 2019-03-01 2019-03-01 Orders Doctor WIL 1.2.840.114 [id number] Univers 00:00:00 00:00:00 Only Unassigned, JAMESON 350.1.13.10 ity of [place] [facility] 4.2.7.2.686 Son as [phone] [address] Results Test Description Test Time Test Comments Results Result Comments Source POCT MOLECULAR FLU 2022-11-08 21:48:35 Test Item Value Reference Range Interpretation Comme nts POCT Molecular FluA (test code = 05497-9) Negative Negative POCT Molecular FluB (test code = 63961-9) Negative Negative Lab Interpretation (test code = 14541-1) Normal [facility] [id number] 21:40:44 Test Item Value Reference Range Interpretation Comments POCT Molecular Strep (test code = Negative Negative 09205-3) Lab Interpretation (test code = Normal 77679-7) [facility] Hospital[facility] PTH CALCIUM [id number] 22:51:51 Test Item Value Reference Range Interpretation Comments PTH-INTACT (test code = 84.5 pg/mL 12.0-88.0 1284163005) PTH-CA Interpretation PTH IS Appropriate (test code = for Calcium 0940418823) CALCIUM (test code = 8.9 mg/dL 8.6-10.6 6496250896) [facility] 16:45:50 Test Item Value Reference Range Interpretation Comments MAGNESIUM (test code = 7570162723) 1.8 mg/dL 1.7-2.4 Lab Interpretation (test code = Normal 55679-1) [facility] 16:45:50 Test Item Value Reference Range Interpretation Comments MAGNESIUM (test code = 6216658980) 1.8 mg/dL 1.7-2.4 Lab Interpretation (test code = Normal 34215-1) [facility] (NA, K, CL, CO2, GLUCOSE, BUN, CREATININE, CA)2022-05-31 16:45:30 Test Item Value Reference Range Interpretation Comments NA (test code = 136 mmol/L 135-145 4958395267) K (test code = 4.1 mmol/L 3.5-5.0 4506766852) CL (test code = 103 mmol/L 98-108 2206404438) CO2 TOTAL (test code = 24 mmol/L 23-31 7743222365) AGAP (test code = 9 2-16 3835822145) BUN (test code = 12 mg/dL 7-23 5860895928) GLUCOSE (test code = 95 mg/dL 70-110 7530817287) CREATININE (test code = 1.06 mg/dL 0.50-1.04 H 7593665080) CALCIUM (test code = 8.9 mg/dL 8.6-10.6 5162648316) eGFR (test code = 55.8 mL/min/1.73m2 8306999456) JERROD (test code = JERROD) Association of Glomerular Filtration Rate (GFR) and Staging of Kidney Disease* + --+ --+ ------+| GFR (mL/min/1.73 m2) ?| With Kidney Damage ?| ?Without Kidney Damage+ --------+ --------+ +| ?>90 ?| ?Stage one ?| ? Normal ?+ ---+ ---+ -------+| ?60-89 ?| ?Stage two ?| ? Decreased GFR ? + --+ --+ ------+| ?30-59 ?| ?Stage three ?| ? Stage three ? + --+ --+ ------+| ?15-29 ?| ?Stage four ? | ? Stage four ?+ ---+ ---+ -------+| ?<15 (or dialysis) ? ?| ?Stage five ? | ? Stage five ?+ ---+ ---+ -------+ *Each stage assumes the associated GFR level has been in effect for at least three months. ?Stages 1 to 5, with or without kidney disease, indicate chronic kidney disease. Notes: Determination of stages one and two (with eGFR >59mL/min/1.73 m2) requires estimation of kidney damage for at least three months as defined by structural or functional abnormalities of the kidney, manifested by either:Pathological abnormalities or Markers of kidney damage (including abnormalities in the composition of the blood or urine or abnormalities in imaging tests). Lab Interpretation Abnormal (test code = 87800-0) [facility] 16:45:30 Test Item Value Reference Range Interpretation Comments PHOSPHORUS (test code = 0482576887) 2.6 mg/dL 2.5-5.0 Lab Interpretation (test code = Normal 29908-3) [facility] (NA, K, CL, CO2, GLUCOSE, BUN, CREATININE, CA)2022-05-31 16:45:30 Test Item Value Reference Range Interpretation Comments NA (test code = 136 mmol/L 135-145 4879633549) K (test code = 4.1 mmol/L 3.5-5.0 1055602589) CL (test code = 103 mmol/L 98-108 4606554330) CO2 TOTAL (test code = 24 mmol/L 23-31 7180997921) AGAP (test code = 9 2-16 0618976610) BUN (test code = 12 mg/dL 7-23 8510565551) GLUCOSE (test code = 95 mg/dL 70-110 1277547488) CREATININE (test code = 1.06 mg/dL 0.50-1.04 H 4950099889) CALCIUM (test code = 8.9 mg/dL 8.6-10.6 9735515848) eGFR (test code = 55.8 mL/min/1.73m2 2951764675) JERROD (test code = JERROD) Association of Glomerular Filtration Rate (GFR) and Staging of Kidney Disease* + --+ --+ ------+| GFR (mL/min/1.73 m2) ?| With Kidney Damage ?| ?Without Kidney Damage+ --------+ --------+ +| ?>90 ?| ?Stage one ?| ? Normal ?+ ---+ ---+ -------+| ?60-89 ?| ?Stage two ?| ? Decreased GFR ? + --+ --+ ------+| ?30-59 ?| ?Stage three ?| ? Stage three ? + --+ --+ ------+| ?15-29 ?| ?Stage four ? | ? Stage four ?+ ---+ ---+ -------+| ?<15 (or dialysis) ? ?| ?Stage five ? | ? Stage five ?+ ---+ ---+ -------+ *Each stage assumes the associated GFR level has been in effect for at least three months. ?Stages 1 to 5, with or without kidney disease, indicate chronic kidney disease. Notes: Determination of stages one and two (with eGFR >59mL/min/1.73 m2) requires estimation of kidney damage for at least three months as defined by structural or functional abnormalities of the kidney, manifested by either:Pathological abnormalities or Markers of kidney damage (including abnormalities in the composition of the blood or urine or abnormalities in imaging tests). Lab Interpretation Abnormal (test code = 66150-0) [facility]23[facility] 16:45:30 Test Item Value Reference Range Interpretation Comments PHOSPHORUS (test code = 4368613839) 2.6 mg/dL 2.5-5.0 Lab Interpretation (test code = Normal 80025-4) [facility] [id number] 15:51:49 Test Item Value Reference Range Interpretation Comments WBC (test code = 7.31 See_Comment [Automated message] The 6690-2) system which ge nerated this result tra nsmitted reference range : 4.30 - 11.10 10*3/?L. The reference range was not used to interpr et this result as normal/abnormal . RBC (test code = 4.47 See_Comment [Automated message] The 789-8) system which nerated this result tra nsmitted reference range : 3.93 - 5.25 10*6/?L. T he reference range was not used to interpr et this result as normal/abnormal . HGB (test code = 12.0 g/dL 11.6-15.0 718-7) HCT (test code = 36.6 % 35.7-45.2 4544-3) MCH (test code = 26.8 pg 25.9-32.8 785-6) MCV (test code = 81.9 fL 80.6-95.5 787-2) MCHC (test code = 32.8 g/dL 31.6-35.1 786-4) PLT (test code = 347 See_Comment [Automated message] The 777-3) system which nerated this result tra nsmitted reference range : 166 - 358 10*3/?L. Th e reference range was not used to interpr et this result as normal/abnormal . MPV (test code = 10.6 fL 9.5-12.9 17816-7) RDW-CV (test code = 13.7 % 12.0-15.5 788-0) RDW-SD (test code = 40.3 fL 39.0-49.9 23625-2) NRBC x10^3 (test See_Comment [Automated message] The code = 5171045274) system [facility] generated this result tra nsmitted reference range : 10*3/?L. The reference r francisco j was not used to int erpret this result as normal/abnormal . NRBC/100 WBC (test 0.0 See_Comment [Automat ed message] The code = 5641827377) system [facility] generated this result tra nsmitted reference range : 0.0 - 10.0 /100 WBCs. The reference range was not used to interpr et this result as normal/abnormal . IPF % (test code = 7003760721) [facility] WITHOUT [id number] 15:51:49 Test Item Value Reference Range Interpretation Comments WBC (test code = 7.31 See_Comment [Automated message] The 6690-2) system which nerated this result tra nsmitted reference range : 4.30 - 11.10 10*3/?L. The reference range was not used to interpr et this result as normal/abnormal . RBC (test code = 4.47 See_Comment [Automated message] The 789-8) system which nerated this result tra nsmitted reference range : 3.93 - 5.25 10*6/?L. T he reference range was not used to interpr et this result as normal/abnormal . HGB (test code = 12.0 g/dL 11.6-15.0 718-7) HCT (test code = 36.6 % 35.7-45.2 4544-3) MCH (test code = 26.8 pg 25.9-32.8 785-6) MCV (test code = 81.9 fL 80.6-95.5 787-2) MCHC (test code = 32.8 g/dL 31.6-35.1 786-4) PLT (test code = 347 See_Comment [Automated message] The 777-3) system which nerated this result tra nsmitted reference range : 166 - 358 10*3/?L. Th e reference range was not used to interpr et this result as normal/abnormal . MPV (test code = 10.6 fL 9.5-12.9 20084-0) RDW-CV (test code = 13.7 % 12.0-15.5 788-0) RDW-SD (test code = 40.3 fL 39.0-49.9 23025-9) NRBC x10^3 (test See_Comment [Automated message] The code = 1874092899) system ich generated this result tra nsmitted reference range : 10*3/?L. The reference r francisco j was not used to int erpret this result as normal/abnormal . NRBC/100 WBC (test 0.0 See_Comment [Automat ed message] The code = 6952486037) system ich generated this result tra nsmitted reference range : 0.0 - 10.0 /100 WBCs. The reference range was not used to interpr et this result as normal/abnormal . IPF % (test code = 1578089192) [facility] MOLECULAR [id number] 01:01:07 Test Item Value Reference Range Interpretation Comments POCT Molecular FluA (test code = Negative Negative 69627-2) POCT Molecular FluB (test code = Negative Negative 57430-7) Lab Interpretation (test code = Normal 97577-3) [facility] MOLECULAR [id number] 00:53:20 Test Item Value Reference Range Interpretation Comments POCT Molecular Strep (test code = Negative Negative 70613-2) Lab Interpretation (test code = Normal 30912-5) [facility] MOLECULAR [id number] 17:15:03 Test Item Value Reference Range Interpretation Comments POCT Molecular FluA (test code = Negative Negative 78265-8) POCT Molecular FluB (test code = Negative Negative 26593-8) Lab Interpretation (test code = Normal 67013-9) [facility] MOLECULAR [id number] 16:54:37 Test Item Value Reference Range Interpretation Comments POCT Molecular Strep (test code = Negative Negative 17969-7) Lab Interpretation (test code = Normal 35316-9) [facility] URINALYSIS W SPECIFIC [id number] 18:14:00 Test Item Value Reference Range Interpretation Comments POCT U SP GRAV (test code = 1.015 mg/dl 1.005-1.025 3255) POCT PH U (test code = 3254) 5 mg/dl 5-8 POCT U LEUK EST (test code = trace Negative - Negative 3263) POCT U NIT (test code = 3262) negative Negative - Negative POCT U PROT (test code = trace Negative - Negative 3259) POCT U GLU (test code = 3256) normal Negative - Negative POCT U KETONE (test code = negative Negative - Negative 3258) POCT U UROBILI (test code = normal 0.2-1 3260) POCT U BILI (test code = negative Negative - Negative 3261) POCT U BLD (test code = 3257) negative Negative - Negative POCT U COLOR (test code = yellow 3266) POCT U APPEAR (test code = clear 3267) [facility]"
[2023-01-16] MEDS ORDERED: DIPHENHYDRAMINE 50 MG/ML VIAL ONE (10:38)
[2023-01-16] MEDS ORDERED: METOCLOPRAMIDE 10 MG/2mL INJ ONE (10:38)
[2023-01-16] MEDS ORDERED: Magnesium Sulfate 2gm IVPB 2 G/50 ML BAG IV ONE (10:39)
[2023-01-16] MEDS ORDERED: NA CHLORIDE 0.9% 1,000 ML ONE (10:39)
[2023-01-16 10:40] LABS: Absolute Lymphocytes (CBC) 1.9 K/uL (0.7-4.9); Hematocrit 38.6 % (36.0-45.0); Lymphocytes % 29.4 % (15.3-44.8); MCV 83.8 fL (80-100); MPV 8.8 fL (7.6-11.3); Platelets 308 thou/uL (152-406)
[2023-01-16 11:02] LABS: Troponin High Sensitivity 4.7 pg/mL (<58.9)
[2023-01-16 11:08] LABS: Potassium 3.5 mEq/L (3.5-5.1)
[2023-01-16 11:09] LABS: ALT/SGPT 18 U/L (13-56); Albumin 3.2 g/dL (3.4-5.0); Alkaline Phosphatase 60 U/L (45-117); Bilirubin Total 0.2 mg/dL (0.2-1.0); Protein, Total 6.9 g/dL (6.4-8.2)
[2023-01-16 11:10] LABS: AST/SGOT 16 U/L (15-37); Bilirubin Direct < 0.1 mg/dL (0-0.2); Bilirubin Indirect, Calculated ND mg/dL (0.2-0.8); Magnesium 1.9 mg/dL (1.6-2.4)
--- NOTE | 2023-01-16 11:31 | RAD REPORT ---
EXAM DESCRIPTION: RAD - Chest Single View - 01/16/2023 10:38 am CLINICAL HISTORY: CHEST PAIN Chest pain. COMPARISON: Chest Single View dated 06/12/2016 FINDINGS: Portable technique limits examination quality. The lungs are grossly clear. The heart is normal in size. No displaced fractures. IMPRESSION: No acute intrathoracic process suspected.
--- NOTE | 2023-01-16 11:45 | EDPHYS ---
Physician Documentation [facility] Name: Varun Martinez Age: 47 yrs Sex: Female : 1975 Arrival Date: 01/16/2023 Time: 10: Bed 3 Private MD: ED Physician Moustapha Winter HPI: 01/16 11:31 This 47 yrs old Female presents to ER via Ambulatory with complaints of Chest Pain. rt 11:31 Patient presents to the ED with concerns for blood pressure as well as any chest pain, rt headache. States that the symptoms of started today. Patient states that typically when her blood pressure comes elevated she will get a headache similar to this 1. She states this is chest pain is new. It occurred at rest, was nonexertional. Pain was aching nature, nonradiating. Denies other acute complaints at this time, symptoms are moderate severity, no other aggravating or alleviating factors.. Historical: - Allergies: 10:35 cannot take NSAID's; ph - PMHx: 10:35 Hypertension; Only has one kidney; ph - Immunization history:: Adult Immunizations unknown. - Social history:: Smoking status: unknown. - Family history:: not pertinent. ROS: 11:31 Constitutional: Negative for fever, chills, and weight loss, Respiratory: Negative for rt shortness of breath, cough, wheezing, and pleuritic chest pain, Abdomen/GI: Negative for abdominal pain, nausea, vomiting, diarrhea, and constipation, MS/Extremity: Negative for injury and deformity, Skin: Negative for injury, rash, and discoloration, Psych: Negative for depression, anxiety, suicide ideation, homicidal ideation, and hallucinations, 11:31 Cardiovascular: Positive for chest pain, 11:31 Neuro: Positive for headache, Negative for altered mental status, Exam: 11:31 Constitutional: This is a well developed, well nourished patient who is awake, alert, rt and in no acute distress. Head/Face: Normocephalic, atraumatic. Chest/axilla: Normal chest wall appearance and motion. Nontender with no deformity. No lesions are appreciated. Cardiovascular: Regular rate and rhythm with a normal S1 and S2. No gallops, murmurs, or rubs. Normal PMI, no JVD. No pulse deficits. Respiratory: Lungs have equal breath sounds bilaterally, clear to auscultation and percussion. No rales, rhonchi or wheezes noted. No increased work of breathing, no retractions or nasal flaring. Abdomen/GI: Soft, non-tender, with normal bowel sounds. No distension or tympany. No guarding or rebound. No evidence of tenderness throughout. Skin: Warm, dry with normal turgor. Normal color with no rashes, no lesions, and no evidence of cellulitis. MS/ Extremity: Pulses equal, no cyanosis. Neurovascular intact. Full, normal range of motion. Neuro: Awake and alert, GCS 15, oriented to person, place, time, and situation. Cranial nerves II-XII grossly intact. Motor strength 5/5 in all extremities. Sensory grossly intact. Cerebellar exam normal. Normal gait. Psych: Awake, alert, with orientation to person, place and time. Behavior, mood, and affect are within normal limits. 11:31 ECG was reviewed by the Attending Physician. Vital Signs: 10:33 BP 144 / 88; Pulse 81; Resp 18; Temp 97.5; Pulse Ox 98% on R/A; ph 10:38 BP 134 / 96; Pulse 75; Resp 16; Pulse Ox 100% on R/A; ph 11:30 BP 134 / 91; Pulse 72; Resp 16; Temp 98; Pulse Ox 99% on R/A; ph MDM: 10:14 Patient medically screened. rt 11:45 Differential diagnosis: ACS, benign headache, hypertension. HEART Score: History: rt Slightly Suspicious (0), ECG: Normal (0), Age: > 45 and < 65 years (1), Risk Factors: 1 or 2 risk factors (1), Troponin: < or = 1 x Normal Limit (0), Total Score = 2. Data reviewed: vital signs, nurses notes, lab test result(s), EKG, radiologic studies. Consideration of Admission/Observation Escalation of care including admission/observation considered. Test considered but Not performed: Labs: Recommend repeat troponin patient, states that she wishes to go now. . CT: Offered patient CT scan of the head to further evaluate headache, states that this is a typical headache for her, does not wish to have a CT scan performed at this time.. Counseling: I had a detailed discussion with the patient and/or guardian regarding the historical points, exam findings, and any diagnostic results supporting the discharge/admit diagnosis, lab results, radiology results, the need for outpatient follow up. 01/16 10:15 Order name: Basic Metabolic Panel; Complete Time: 11:14 ld1 01/16 10:15 Order name: CBC with Diff; Complete Time: 11:14 ld1 01/16 10:15 Order name: Troponin HS; Complete Time: 11:14 ld1 01/16 10:21 Order name: LFT's; Complete Time: 11:14 rt 01/16 10:21 Order name: Magnesium; Complete Time: 11:14 rt 01/16 10:15 Order name: XRAY Chest (1 view); Complete Time: 11:33 ld1 01/16 10:15 Order name: EKG; Complete Time: 10:16 ld1 01/16 10:15 Order name: Cardiac monitoring; Complete Time: 10:15 ld1 01/16 10:15 Order name: EKG - Nurse/Tech; Complete Time: 10:15 ld1 01/16 10:15 Order name: IV Saline Lock; Complete Time: 10:38 ld1 01/16 10:15 Order name: Labs collected and sent; Complete Time: 10:38 ld1 01/16 10:15 Order name: O2 Per Protocol; Complete Time: 10:15 ld1 01/16 10:15 Order name: O2 Sat Monitoring; Complete Time: 10:15 ld1 EC:31 Rate is 88 beats/min. Rhythm is regular, Normal Sinus Rhythm with No ectopy. QRS [place] rt is Normal. IA interval is normal. QRS interval is normal. QT interval is normal. No Q waves. T waves are Normal. No ST changes noted. Interpreted by me. Administered Medications: 10:32 Drug: metoCLOPramide IVP 10 mg IVP once; over 1 to 2 minutes Route: IVP; Site: right ld1 antecubital; 11:30 Follow up: Response: No adverse reaction ph 10:32 Drug: diphenhydrAMINE IVP 25 mg IVP once Route: IVP; Site: right antecubital; ld1 11:00 Follow up: Response: No adverse reaction ph 10:32 Drug: Magnesium Sulfate IVPB 2 grams IVPB once over 1 hrs Route: IVPB; Infused Over: 1 ld1 hrs; Site: right antecubital; 11:35 Follow up: Response: No adverse reaction; IV Status: Completed infusion ph 10:32 Drug: NS 0.9% IV 1000 ml IV at 1 bolus Per protocol; 1000 mL bolus Route: IV; Rate: 1 ld1 bolus; Site: right antecubital; 11:00 Follow up: Response: No adverse reaction; IV Status: Completed infusion ph Disposition Summary: 01/16/23 11:45 Discharge Ordered Notes: Location: Home rt Problem: new rt Symptoms: have improved rt Condition: Stable rt Diagnosis - Essential (primary) hypertension rt - Chest pain, unspecified rt - Headache rt Followup: rt - With: Private Physician - When: Today - Reason: Discharge Instructions: - Discharge Summary Sheet rt - Nonspecific Chest Pain, Adult rt - General Headache Without Cause rt - Hypertension, Adult rt Forms: - Medication Reconciliation Form rt - Thank You Letter rt - Antibiotic Education rt - Prescription Opioid Use rt - Patient Portal Instructions rt - Leadership Thank You Letter rt Signatures: Dispatcher [employer] Stefani Aguirre RN RN Leonie Napoles RN RN ld1 Moustapha Winter MD MD rt
--- NOTE | 2023-01-16 11:45 | ER ---
Nurse's Notes [facility] Name: Varun Martinez Age: 47 yrs Sex: Female : 1975 Arrival Date: 01/16/2023 Time: 10:02 Bed 3 Private MD: Diagnosis: Essential (primary) hypertension;Chest pain, unspecified;Headache Presentation: 01/16 10:33 Chief complaint: Patient states: High BP and headache x 2 days, mid-sternal chest pain ph that started today, recent changes to BP medication, reports 1 episode of nausea [employer]CR[employer], denies SOB. Coronavirus screen: Vaccine status: Patient reports receiving the 2nd dose of the covid vaccine. Ebola Screen: No symptoms or risks identified at this time. Initial Sepsis Screen: Does the patient meet any 2 criteria? No. Patient's initial sepsis screen is negative. Does the patient have a suspected source of infection? No. Patient's initial sepsis screen is negative. Risk Assessment: Do you want to hurt yourself or someone else? Patient reports no desire to harm self or others. Onset of symptoms was January 16, 2023. 10:33 Method Of Arrival: Ambulatory ph 10:33 Acuity: STEVAN 3 ph Historical: - Allergies: 10:35 cannot take NSAID's; ph - PMHx: 10:35 Hypertension; Only has one kidney; ph - Immunization history:: Adult Immunizations unknown. - Social history:: Smoking status: unknown. - Family history:: not pertinent. Screenin:37 [facility] ED Fall Risk Assessment (Adult) History of falling in the last 3 months, ph including since admission No falls in past 3 months (0 pts) Score/Fall Risk Level 0 - 2 = Low Risk Oriented to surroundings, Maintained a safe environment, Provided non-skid footwear, Hourly rounding (assess needs \T\ fall precautionary measures) done. Abuse screen: Denies threats or abuse. Denies injuries from another. Nutritional screening: No deficits noted. Tuberculosis screening: No symptoms or risk factors identified. Assessment: 10:36 General: Appears in no apparent distress. uncomfortable, well groomed, Behavior is ph calm, cooperative, appropriate for age. Pain: Complains of pain in anterior aspect of left upper chest and mid-sternal area Pain does not radiate. Quality of pain is described as sharp, squeezing, Pain began 1 hour ago. Neuro: Level of Consciousness is awake, alert, obeys commands, Oriented to person, place, time, situation, Reports headache. Cardiovascular: Reports chest pain, nausea, Rhythm is sinus rhythm. Respiratory: Airway is patent Respiratory effort is even, unlabored, Respiratory pattern is regular, symmetrical. Derm: Skin is pink, warm \T\ dry. 11:30 Reassessment: Patient appears in no apparent distress at this time. Patient and/or ph family updated on plan of care and expected duration. Pain level reassessed. Patient is alert, oriented x 3, equal unlabored respirations, skin warm/dry/pink. Patient denies pain at this time. Patient states feeling better. Patient states symptoms have improved. Vital Signs: 10:33 BP 144 / 88; Pulse 81; Resp 18; Temp 97.5; Pulse Ox 98% on R/A; ph 10:38 BP 134 / 96; Pulse 75; Resp 16; Pulse Ox 100% on R/A; ph 11:30 BP 134 / 91; Pulse 72; Resp 16; Temp 98; Pulse Ox 99% on R/A; ph ED Course: 10:04 Patient arrived in ED. ts1 10:05 Stefani Garay, EBER is Primary Nurse. ph 10:06 Moustapha Winter MD is Attending Physician. rt 10:35 Triage completed. ph 10:37 Initial lab(s) drawn, by me, sent to lab. EKG done, by ED staff, reviewed by Moustapha Winter MD. Inserted saline lock: 20 gauge in right antecubital area, using aseptic technique. Blood collected. Patient maintains SpO2 saturation greater than 95% on room air. 10:38 Arm band placed on Patient placed in an exam room, on a stretcher. ph 10:38 Patient has correct armband on for positive identification. Placed in gown. Bed in low ph position. Call light in reach. Side rails up X 1. Client placed on continuous cardiac and pulse oximetry monitoring. NIBP monitoring applied. Door closed. Noise minimized. Lights dimmed. Warm blanket given. Pillow given. 10:40 XRAY Chest (1 view) In Process Unspecified. EDMS 11:57 No provider procedures requiring assistance completed. IV discontinued, intact, ld1 bleeding controlled, No redness/swelling at site. Administered Medications: 10:32 Drug: metoCLOPramide IVP 10 mg IVP once; over 1 to 2 minutes Route: IVP; Site: right ld1 antecubital; 11:30 Follow up: Response: No adverse reaction ph 10:32 Drug: diphenhydrAMINE IVP 25 mg IVP once Route: IVP; Site: right antecubital; ld1 11:00 Follow up: Response: No adverse reaction ph 10:32 Drug: Magnesium Sulfate IVPB 2 grams IVPB once over 1 hrs Route: IVPB; Infused Over: 1 ld1 hrs; Site: right antecubital; 11:35 Follow up: Response: No adverse reaction; IV Status: Completed infusion ph 10:32 Drug: NS 0.9% IV 1000 ml IV at 1 bolus Per protocol; 1000 mL bolus Route: IV; Rate: 1 ld1 bolus; Site: right antecubital; 11:00 Follow up: Response: No adverse reaction; IV Status: Completed infusion ph Medication: 10:38 VIS not applicable for this client. ph Outcome: 11:45 Discharge ordered by . rt 11:57 Discharged to home ambulatory, with family, ld1 11:57 Condition: stable 11:57 Discharge instructions given to patient, Instructed on discharge instructions, follow up and referral plans. medication usage, Demonstrated understanding of instructions, follow-up care, medications, 11:57 Patient left the ED. ld1 Signatures: Dispatcher [employer] Stefani Aguirre RN RN Leonie Napoles RN RN ld1 Moustapha Winter MD MD rt Brandy Donato PAS PAS ts1
[2023-01-16 12:05] VITALS: TEMP 97.5
[2023-01-16 12:06] VITALS: BP 134/96; O2SAT 100
--- NOTE | 2023-01-16 15:41 | EKG ---
Test Date: 2023-01-16 Test Time: 10:12:39 [employer]are Parts Clerk: REINAW MEASUREMENT RESULTS: Intervals: Rate: 88 NM: 124 QRSD: 72 QT: 352 QTc: 425 [place]: P: 43 NM: 124 QRS: 71 T: 47 INTERPRETIVE STATEMENTS: Normal sinus rhythm Normal ECG Compared to ECG 06/12/2016 19:40:49 No significant changes Electronically Signed On 01-16-23 15:40:19 CDT by Phan Thompson
== END 2023-01-16 11:57 | disposition home or self-care (01) ==
LOC: ER 10:02
DX: R07.9 Chest pain, unspecified (principal); I10 Essential (primary) hypertension; R51.9 Headache, unspecified; Z90.5 Acquired absence of kidney
CPT/HCPCS: 96365; 93005; 85025; 80048; 36415; 83735; 80076; 84484; 71045; 96375; 99285; J3475; J2765; J1200; J7030